=== PATIENT | female | born 1945 | race Caucasian/White ===

== ENCOUNTER 2017-02-28 09:06 | Emergency (ER) | payer MEDICARE, BC ==
[2017-02-28] MEDS ORDERED: Metoprolol Tartrate 50 MG Tab PO ONE ×2 (09:56→12:02)
[2017-02-28] MEDS ORDERED: Diltiazem 25 MG/5 ML SDV IVPUSH ONE (13:57)
[2017-02-28] MEDS ORDERED: Sodium Chloride 0.9% 10 ML Syringe FLUSH PRN (13:57)
[2017-02-28 15:21] VITALS: BP 124/78
--- NOTE | 2017-02-28 15:52 | EDM.PDOC ---
ED HPI GENERAL MEDICAL PROBLEM - General Chief Complaint: Cardiovascular Problem Stated Complaint: HEART RATE FAST Time Seen by Provider: 02/28/17 09:37 - History of Present Illness INITIAL COMMENTS - FREE TEXT/NARRATIVE: Comes to the emergency department because of a rapid heart rate. Her heart rate has been going up to nearly 150 with exertion. She gets dyspnea on exertion. Her resting heart rate is staying greater than 100. She takes metoprolol 50 mg 2 in the morning and 1 at night. Previously she was taking diltiazem but that was discontinued and her metoprolol dose was increased. 2 months ago she had a severe pneumonia and required surgery to the right lung. She's not having any respiratory difficulty except with exertion. She denies any chest pain - Related Data Allergies Allergy/AdvReac Type Severity Reaction Status Date / Time No Known Allergies Allergy Verified 03/31/16 05:15 Home Meds: Home Meds Clopidogrel [Plavix] 75 mg PO DAILY 01/15/16 [History] Metoprolol Succinate [Toprol XL] 50 mg PO TID 01/15/16 [History] Ramipril [Altace] 5 mg PO DAILY 01/15/16 [History] atorvaSTATin [Lipitor] 80 mg PO DAILY 01/15/16 [History] levETIRAcetam [Levetiracetam] 1,000 mg PO BID 01/15/16 [History] Past Medical History HEENT History: Reports: Impaired Vision Cardiovascular History: Reports: Afib, High Cholesterol Respiratory History: Reports: None Gastrointestinal History: Reports: None Genitourinary History: Reports: None Musculoskeletal History: Reports: Arthritis Neurological History: Reports: CVA, Seizure Psychiatric History: Reports: None Endocrine/Metabolic History: Reports: None Hematologic History: Reports: Anticoagulation Therapy Dermatologic History: Reports: None - Infectious Disease History Infectious Disease History: Reports: Chicken Pox, Shingles - Past Surgical History HEENT Surgical History: Reports: Eye Surgery, Other (See Below) Social & Family History - Family History Family Medical History: Unobtainable - Tobacco Use Smoking Status *Q: Never Smoker Second Hand Smoke Exposure: No - Recreational Drug Use Recreational Drug Use: No ED ROS GENERAL - Review of Systems Review Of Systems: ROS reveals no pertinent complaints other than HPI. ED EXAM, GENERAL - Physical Exam Exam: See Below Exam Limited By: No Limitations General Appearance: Alert, WD/WN Eye Exam: Bilateral Eye: Normal Inspection Throat/Mouth: Normal Oropharynx Neck: Normal Inspection Respiratory/Chest: Lungs Clear, Other Cardiovascular: Tachycardia, Irregularly Irregular GI/Abdominal: Soft, Non-Tender Back Exam: Normal Inspection Extremities: Pedal Edema (Trace of pedal edema bilaterally) Neurological: Alert, Oriented Skin Exam: Warm, Dry Course - Vital Signs Last Recorded V/S: Last Vital Signs Temp 36.3 C 02/28/17 09:57 Pulse 108 H 02/28/17 15:20 Resp 14 02/28/17 13:32 BP 124/78 02/28/17 15:20 Pulse Ox 90 L 02/28/17 15:15 - Orders/Labs/Meds Orders: Active Orders 24 hr Category Date Time Status EKG Documentation Completion [RC] ASDIRECTED Care 02/28/17 09:56 Active Chest 1V Frontal [CR] Urgent Exams 02/28/17 09:56 Taken Sodium Chloride 0.9% [Saline Flush] Med 02/28/17 13:57 Active 10 ml FLUSH ASDIRECTED PRN Saline Lock Insert [OM.PC] Urgent Oth 02/28/17 13:57 Ordered EKG 12 Lead [EK] Urgent Ther 02/28/17 09:56 Ordered Medication Orders Sodium Chloride (Saline Flush) 10 ml FLUSH ASDIRECTED PRN PRN Reason: Keep Vein Open Last Admin: 02/28/17 15:19 Dose: 10 ml Labs: Laboratory Tests 02/28/17 02/28/17 02/28/17 Range/Units 10:10 10:10 12:26 WBC 8.2 (4.5-11.0) K/uL RBC 4.78 (3.30-5.50) M/uL Hgb 11.3 L (12.0-15.0) g/dL Hct 37.4 (36.0-48.0) % MCV 78 L (80-98) fL MCH 24 L (27-31) pg MCHC 30 L (32-36) % Plt Count 226 (150-400) K/uL Neut % (Auto) 79 H (36-66) % Lymph % (Auto) 10 L (24-44) % Roberts % (Auto) 9 H (2-6) % Eos % (Auto) 1 L (2-4) % Baso % (Auto) 1 (0-1) % Sodium 142 (140-148) mmol/L Potassium 3.5 L (3.6-5.2) mmol/L Chloride 104 (100-108) mmol/L Carbon Dioxide 29 (21-32) mmol/L Anion Gap 12.5 (5.0-14.0) mmol/L BUN 26 H (7-18) mg/dL Creatinine 1.0 (0.6-1.0) mg/dL Est Cr Clr Drug Dosing 37.81 mL/min Estimated GFR (MDRD) 54 L (>60) Glucose 77 (74-106) mg/dL Calcium 9.0 (8.5-10.1) mg/dL Total Bilirubin 1.2 H D (0.2-1.0) mg/dL AST 69 H (15-37) U/L ALT 93 H (12-78) U/L Alkaline Phosphatase 127 H (46-116) U/L Troponin I 0.060 H* 0.054 (0.000-0.056) ng/mL Total Protein 6.9 (6.4-8.2) g/dL Albumin 3.2 L (3.4-5.0) g/dL Globulin 3.7 H (2.3-3.5) g/dL Albumin/Globulin Ratio 0.9 L (1.2-2.2) Meds: Medications Generic Name Dose Route Start Last Admin Trade Name Freq PRN Reason Stop Dose Admin Sodium Chloride 10 ml 02/28/17 13:57 02/28/17 15:19 Saline Flush FLUSH 10 ml ASDIRECTED PRN Administration Keep Vein Open Discontinued Medications Generic Name Dose Route Start Last Admin Trade Name Freq PRN Reason Stop Dose Admin Diltiazem HCl 20 mg 02/28/17 13:57 02/28/17 15:20 Diltiazem IVPUSH 02/28/17 13:58 20 mg ONETIME ONE Administration Metoprolol Tartrate 50 mg 02/28/17 09:56 02/28/17 10:08 Lopressor PO 02/28/17 09:57 50 mg ONETIME ONE Administration Metoprolol Tartrate 50 mg 02/28/17 12:02 02/28/17 12:07 Lopressor PO 02/28/17 12:03 50 mg ONETIME ONE Administration - Re-Assessments/Exams Free Text/Narrative Re-Assessment/Exam: 02/28/17 15:57 EKG shows atrial fibrillation with rapid ventricular response. Otherwise EKG is similar to previous tracings. No evidence of ischemia. The patient received metoprolol tartrate 50 mg which was repeated 1. This slowed her heart rate only slightly. I spoke with Dr. Mcfarlane about this lady and he felt that a trial of diltiazem IV was indicated. An IV was established and she was given diltiazem 20 mg. This brought the heart rate down to the 80- 90 range. She tolerated this well. Labs have been reviewed. Her troponin initially was slightly elevated at 0.06 and a 2 hour troponin was 0.054. There is no evidence of myocardial infarction in this lady Departure - Departure Time of Disposition: 15:49 Disposition: Home, Self-Care 01 Condition: Fair Clinical Impression: Atrial fibrillation with rapid ventricular response Referrals: Jayshree Cedillo MD [Primary Care Provider] - Forms: ED Department Discharge Additional Instructions: Continue taking the same dose of metoprolol. Add diltiazem 30 mg one or 2 tablets every 8 hours. Start with 1 tablet every 8 hours and if that does not keep your heart rate under about 100 then increase it to 2 tablets every 8 hours. If your heart rate is going under 60 then you should cut down on the diltiazem. Be sure to check your blood pressure and pulse several times a day and record these. Follow-up with your doctor on Thursday. Return to the ER at any time for any problems - My Orders Last 24 Hours: My Active Orders 02/28/17 09:56 EKG Documentation Completion [RC] ASDIRECTED Chest 1V Frontal [CR] Urgent EKG 12 Lead [EK] Urgent 02/28/17 13:57 Sodium Chloride 0.9% [Saline Flush] 10 ml FLUSH ASDIRECTED PRN Saline Lock Insert [OM.PC] Urgent - Assessment/Plan Last 24 Hours: My Active Orders 02/28/17 09:56 EKG Documentation Completion [RC] ASDIRECTED Chest 1V Frontal [CR] Urgent EKG 12 Lead [EK] Urgent 02/28/17 13:57 Sodium Chloride 0.9% [Saline Flush] 10 ml FLUSH ASDIRECTED PRN Saline Lock Insert [OM.PC] Urgent
--- NOTE | 2017-03-02 09:59 | CR ---
Chest 1V Frontal HISTORY: Pain COMPARISON: None FINDINGS: Small right-sided effusion. Right lung base atelectatic change or infiltrate. Small left-s ided effusion with adjacent atelectatic change or infiltrate. The pulmonary vessels are borderline c ongested. Mild cardiomegaly. Impression: Basilar infiltrates and effusions. Borderline congestive change.
== END 2017-02-28 16:28 | disposition home or self-care (01) ==
LOC: JP.ED 09:06
DX: I48.91 Unspecified atrial fibrillation (principal); H54.7 Unspecified visual loss; E78.00 Pure hypercholesterolemia, unspecified; Z79.899 Other long term (current) drug therapy; Z86.73 Personal history of transient ischemic attack (TIA), and cerebral infarction without residual deficits; M19.90 Unspecified osteoarthritis, unspecified site; Z87.01 Personal history of pneumonia (recurrent)
CPT/HCPCS: 36415; 71010; 80053; 84484; 85025; 93005; 96374; 99285; A9270; J7050; 93010; J3490

== ENCOUNTER 2017-05-06 19:55 | Emergency (ER) | payer MEDICARE, BC ==
[2017-05-06] MEDS ORDERED: Sodium Chloride 0.9% 10 ML Syringe FLUSH PRN (20:10)
--- NOTE | 2017-05-06 20:16 | EDM.PDOC ---
ED HPI GENERAL MEDICAL PROBLEM - General Chief Complaint: Neuro Symptoms/Deficits Stated Complaint: POSSIBLE STROKE Time Seen by Provider: 05/06/17 20:05 Source of Information: Reports: Patient, Family, Old Records History Limitations: Reports: Other (patient cannot speak) - History of Present Illness INITIAL COMMENTS - FREE TEXT/NARRATIVE: 71 yo female with a hx of multiple strokes felt due to Afib presents with onset about 191h tonight of inability to speak, some R facial droop and L arm weakness. 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 Is chronically in Afib, a PT of 2.3 was obtained earlier today. Onset witnessed by who brought her in via private vehicle. Has been to [facility] for CVA's in the past. Onset: Today Onset Date: 05/06/17 Onset Time: 19:15 Duration: Minutes:, Constant Location: Reports: Head, Face, Upper Extremity, Left Quality: Reports: Other (no pain, weakness) Severity: Moderate Improves with: Reports: None Worsens with: Reports: None Context: Reports: Other (afib, hx of CVA's, chronic Afib) Associated Symptoms: Reports: Weakness (L arm/hand), Other (R facial droop and L arm/hand weakness are new). Denies: Fever/Chills, Headaches Treatments [employer]: Reports: Other (see below) (none) - Related Data Allergies Allergy/AdvReac Type Severity Reaction Status Date / Time No Known Allergies Allergy Verified 03/31/16 05:15 Home Meds: Home Meds Metoprolol Succinate [Toprol XL] 50 mg PO BID 01/15/16 [History] Ramipril [Altace] 5 mg PO DAILY 01/15/16 [History] atorvaSTATin [Lipitor] 80 mg PO DAILY 01/15/16 [History] levETIRAcetam [Levetiracetam] 500 mg PO DAILY 01/15/16 [History] Diltiazem HCl [Diltiazem 24Hr Cd] 120 mg PO DAILY 05/06/17 [History] Diltiazem HCl [Diltiazem 24Hr ER] 120 mg PO DAILY 05/06/17 [History] Famotidine 20 mg PO DAILY 05/06/17 [History] Furosemide 20 mg PO DAILY 05/06/17 [History] Lisinopril 10 mg PO DAILY 05/06/17 [History] Warfarin [Coumadin] 2.5 mg PO DAILY 05/06/17 [History] levETIRAcetam [Levetiracetam] 1,000 mg PO QPM 05/06/17 [History] Past Medical History HEENT History: Reports: Impaired Vision Cardiovascular History: Reports: Afib, High Cholesterol Respiratory History: Reports: None Gastrointestinal History: Reports: None Genitourinary History: Reports: None Musculoskeletal History: Reports: Arthritis Neurological History: Reports: CVA, Seizure Psychiatric History: Reports: None Endocrine/Metabolic History: Reports: None Hematologic History: Reports: Anticoagulation Therapy Dermatologic History: Reports: None - Infectious Disease History Infectious Disease History: Reports: Chicken Pox, Shingles - Past Surgical History HEENT Surgical History: Reports: Eye Surgery, Other (See Below) Social & Family History - Family History Family Medical History: Unobtainable - Tobacco Use Smoking Status *Q: Never Smoker Second Hand Smoke Exposure: No - Caffeine Use Caffeine Use: Reports: None - Recreational Drug Use Recreational Drug Use: No ED ROS GENERAL - Review of Systems Review Of Systems: See Below Constitutional: Reports: No Symptoms HEENT: Reports: No Symptoms Respiratory: Reports: No Symptoms Cardiovascular: Reports: No Symptoms Endocrine: Reports: No Symptoms GI/Abdominal: Reports: No Symptoms : Reports: No Symptoms Musculoskeletal: Reports: No Symptoms Skin: Reports: No Symptoms Neurological: Reports: Trouble Speaking, Weakness (L hand/arm). Denies: Difficulty Walking Psychiatric: Reports: No Symptoms ED EXAM, NEURO - Physical Exam Exam: See Below Exam Limited By: No Limitations General Appearance: Alert, WD/WN, No Apparent Distress Eye Exam: Bilateral Eye: Normal Inspection, Other ([place] look to the Left, not new) Ears: Normal External Exam, Normal Canal, Normal TMs Nose: Normal Inspection, Normal Mucosa, No Blood Throat/Mouth: Normal Inspection, Normal Lips, Normal Oropharynx, No Airway Compromise Head Exam: Atraumatic, Normocephalic Neck: Normal Inspection, Supple Respiratory/Chest: No Respiratory Distress, Lungs Clear, Normal Breath Sounds, No Accessory Muscle Use Cardiovascular: Regular Rate, Rhythm, No Edema GI/Abdominal: Normal Bowel Sounds, Soft, Non-Tender, No Distention Neurological: Alert, Normal Mood/Affect, Other (L arm/hand strength 4/5, R facial droop, unable to speak clearly). No: No Motor/Sensory Deficits, Difficulty Walking Back Exam: Normal Inspection. No: CVA Tenderness (R), CVA Tenderness (L) Extremities: Normal Inspection, Non-Tender, No Pedal Edema Psychiatric: Normal Affect, Normal Mood Skin Exam: Warm, Dry, Intact, Normal Color, No Rash EKG INTERPRETATION EKG Date: 05/06/17 Time: 20:10 Rhythm: A-Fib Rate (Beats/Min): 93 [place]: Normal P-Wave: Present QRS: Normal ST-T: Normal QT: Normal Comparison: No Change Course - Vital Signs Text/Narrative:: To [facility] via ALS for acute stroke, not a candidate for thrombolytics due to chronic warfarin use with INR of 2.3 today. No beds available here at [facility]. Dr. Choi accepted @ 148. Requests air transport. Last Recorded V/S: Last Vital Signs Temp 35.8 C 05/06/17 20:00 Pulse 97 05/06/17 20:37 Resp 18 05/06/17 20:00 BP 136/88 05/06/17 20:37 Pulse Ox 94 L 05/06/17 20:37 - Orders/Labs/Meds Orders: Active Orders 24 hr Category Date Time Status Cardiac Monitoring [RC] .As Directed Care 05/06/17 20:10 Active EKG Documentation Completion [RC] ASDIRECTED Care 05/06/17 20:10 Active Head wo Cont [CT] Stat Exams 05/06/17 20:11 Taken UA W/MICROSCOPIC [URIN] Stat Lab 05/06/17 20:09 Uncollected Sodium Chloride 0.9% [Saline Flush] Med 05/06/17 20:10 Active 10 ml FLUSH ASDIRECTED PRN Saline Lock Insert [OM.PC] Routine Oth 05/06/17 20:10 Ordered EKG 12 Lead [EK] Routine Ther 05/06/17 20:10 Ordered Medication Orders Sodium Chloride (Saline Flush) 10 ml FLUSH ASDIRECTED PRN PRN Reason: Keep Vein Open Last Admin: 05/06/17 20:30 Dose: 10 ml Labs: Laboratory Tests 05/06/17 05/06/17 Range/Units 20:09 20:09 WBC 6.5 (4.5-11.0) K/uL RBC 5.51 H (3.30-5.50) M/uL Hgb 13.2 (12.0-15.0) g/dL Hct 41.5 (36.0-48.0) % MCV 75 L (80-98) fL MCH 24 L (27-31) pg MCHC 32 (32-36) % Plt Count 210 (150-400) K/uL Sodium 143 (140-148) mmol/L Potassium 4.1 (3.6-5.2) mmol/L Chloride 105 (100-108) mmol/L Carbon Dioxide 32 (21-32) mmol/L Anion Gap 5.7 (5.0-14.0) mmol/L BUN 24 H (7-18) mg/dL Creatinine 0.9 (0.6-1.0) mg/dL Est Cr Clr Drug Dosing 42.01 mL/min Estimated GFR (MDRD) > 60 (>60) Glucose 105 (74-106) mg/dL Calcium 8.9 (8.5-10.1) mg/dL Troponin I 0.074 H* (0.000-0.056) ng/mL Meds: Medications Generic Name Dose Route Start Last Admin Trade Name Freq PRN Reason Stop Dose Admin Sodium Chloride 10 ml 05/06/17 20:10 05/06/17 20:30 Saline Flush FLUSH 10 ml ASDIRECTED PRN Administration Keep Vein Open - Radiology Interpretation Free Text/Narrative:: No acute changes noted. CT Results Date: 05/06/17 CT Results Time: 21:25 Departure - Departure Time of Disposition: 21:35 Disposition: DC/Tfer to Acute Hospital 02 Condition: Serious Clinical Impression: Chronic atrial fibrillation CVA (cerebral vascular accident) Qualifiers: CVA mechanism: unspecified Qualified Code(s): I63.9 - Cerebral infarction, unspecified - Discharge Information Referrals: Jayshree Cedillo MD [Primary Care Provider] - Forms: ED Department Discharge - My Orders Last 24 Hours: My Active Orders 05/06/17 20:09 UA W/MICROSCOPIC [URIN] Stat 05/06/17 20:10 Cardiac Monitoring [RC] .As Directed EKG Documentation Completion [RC] ASDIRECTED Sodium Chloride 0.9% [Saline Flush] 10 ml FLUSH ASDIRECTED PRN Saline Lock Insert [OM.PC] Routine EKG 12 Lead [EK] Routine 05/06/17 20:11 Head wo Cont [CT] Stat - Assessment/Plan Last 24 Hours: My Active Orders 05/06/17 20:09 UA W/MICROSCOPIC [URIN] Stat 05/06/17 20:10 Cardiac Monitoring [RC] .As Directed EKG Documentation Completion [RC] ASDIRECTED Sodium Chloride 0.9% [Saline Flush] 10 ml FLUSH ASDIRECTED PRN Saline Lock Insert [OM.PC] Routine EKG 12 Lead [EK] Routine 05/06/17 20:11 Head wo Cont [CT] Stat
[2017-05-06 21:36] VITALS: BP 140/100
== END 2017-05-06 21:55 ==
LOC: JP.ED 19:55
DX: I63.9 Cerebral infarction, unspecified (principal); I48.2 Chronic atrial fibrillation; M19.90 Unspecified osteoarthritis, unspecified site; Z79.899 Other long term (current) drug therapy; Z79.01 Long term (current) use of anticoagulants
CPT/HCPCS: 36415; 70450; 80048; 81001; 84484; 85027; 93005; 99285; J7050; 93010

== ENCOUNTER 2021-01-15 15:50 | Inpatient (IN) | payer MEDICARE, BC ==
[2021-01-15] MEDS ORDERED: Ondansetron 4 MG Tab.DIS PO PRN (16:50)
[2021-01-15] MEDS ORDERED: Sodium Chloride 0.9% 10 ML Syringe FLUSH PRN (16:50)
[2021-01-15] MEDS ORDERED: Ondansetron 4 MG/2 ML SDV IV PRN (16:50)
--- NOTE | 2021-01-15 17:01 | PCM.HP.2 ---
H&P History of Present Illness - General Date of Service: 01/15/21 Admit Problem/Dx: Admission Diagnosis/Problem Admission Diagnosis/Problem CHF, Congestive heart failure Source of Information: Patient, Family, Provider History Limitations: Reports: No Limitations - History of Present Illness Initial Comments - Free Text/Narative: CC: I was so tired HPI: Jody presents as a direct admission from the clinic after seeing her primary care physician Dr. Vanda Garcia. She reports a weight gain of more than 20 pounds over the last few weeks. She has had increasing fatigue and dyspnea with any exertion. She has had increased swelling of her right arm as well as both legs all the way up to her waist and including her lower back. She has progressive orthopnea but does not have any PND. She has not had chest pain or chest tightness. No obvious trigger to have started the progression of the swelling. She was on an increased dose of furosemide for a few days but did not notice any change in urine output or weight or symptoms. She does have a loose cough but has not produced sputum. No fevers or chills. No abdominal pain or nausea. No change in bowel or bladder habits. No obvious sick contacts. She does note that she has had several medications discontinued recently because of hypotension. Her last echocardiogram was performed about 1 year ago and showed an ejection fraction of 40 to 45% with severe tricuspid regurgitation and severe pulmonary hypertension with pressures in the 80 to 90 mmHg range. - Related Data Allergies/Adverse Reactions: Allergies Allergy/AdvReac Type Severity Reaction Status Date / Time No Known Allergies Allergy Verified 03/31/16 05:15 Home Medications: Home Meds Metoprolol Succinate [Toprol XL] 50 mg PO BID 01/15/16 [History] levETIRAcetam [Levetiracetam] 500 mg PO DAILY 01/15/16 [History] Furosemide 20 mg PO DAILY 05/06/17 [History] Warfarin [Coumadin] 2.5 mg PO DAILY 05/06/17 [History] levETIRAcetam [Levetiracetam] 1,000 mg PO QPM 05/06/17 [History] Rosuvastatin [Crestor] 10 mg PO DAILY 01/15/21 [History] Past Medical History HEENT History: Reports: Impaired Vision Cardiovascular History: Reports: Afib, High Cholesterol Respiratory History: Reports: None Gastrointestinal History: Reports: None Genitourinary History: Reports: None Musculoskeletal History: Reports: Arthritis Neurological History: Reports: CVA, Seizure Psychiatric History: Reports: None Endocrine/Metabolic History: Reports: None Hematologic History: Reports: Anticoagulation Therapy Dermatologic History: Reports: None - Infectious Disease History Infectious Disease History: Reports: Chicken Pox, Shingles - Past Surgical History HEENT Surgical History: Reports: Eye Surgery, Other (See Below) Other HEENT Surgeries/Procedures: 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 Pertinent positives and negatives are noted in the history of present illness. All other systems were reviewed and were negative except as noted. Exam - Exam Exam: See Below - Vital Signs Vital Signs: Last Vital Signs Temp 35.2 C L 01/15/21 16:27 Pulse 90 01/15/21 16:27 Resp 16 01/15/21 16:33 BP 109/61 01/15/21 16:27 Pulse Ox 91 L 01/15/21 16:33 - Exam Quality Assessment: Supplemental Oxygen General: Alert, Oriented, Cooperative. No: Mild Distress HEENT: Conjunctiva Clear. No: Mucosa Moist & [place], Scleral Icterus Neck: Supple, JVD Lungs: Normal Respiratory Effort, Decreased Breath Sounds (both bases ), Crackles (both bases ) Cardiovascular: Regular Rate, Irregular Rhythm, Gallop/S3 GI/Abdominal Exam: Normal Bowel Sounds, Soft, Non-Tender, No Distention Extremities: Pedal Edema (massive pitting edema both legs to the waist and lower back ), Increased Warmth (both shins ) Peripheral Pulses: 1+: Dorsalis Pedis (L), Dorsalis Pedis (R) Skin: Warm, Dry, Wound (weeping from right anterior storm ) Neuro Extensive - Mental Status: Alert, Nl Response to Commands Neuro Extensive - Motor, Sensory, Reflexes: Dysarthria, Abnormal Motor (right arm weakness ). No: Tremor Psychiatric: Alert, Normal Affect - Patient Data Result Diagrams: 01/15/21 17:36 01/15/21 17:36 Imaging Impressions Last 24 hrs: Chest x-ray-image was personally reviewed-she has cardiomegaly with small bilateral effusions as well as some probable pulmonary edema more on the right than on the left. No obvious mass or infiltrate. Sepsis Event Note - Focused Exam Vital Signs: Vital Signs Temp Pulse Resp BP Pulse Ox 01/15/21 16:33 16 91 L 01/15/21 16:27 35.2 C L 90 18 109/61 85 L *Q Meaningful Use (ADM) - VTE Risk Assess *Q Each Risk Factor Represents 1 Point: Swollen Legs, Current, Obesity ( BMI > 25 kg/m2), Congestive heart failure (CHF) Total Score 1 Point Risk Factors: 3 Each Risk Factor Represents 2 Points: None Total Score 2 Point Risk Factors: 0 Each Risk Factor Represents 3 Points: Age 75 Years or Greater, History of DVT/PE Total Score 3 Point Risk Factors: 6 Each Risk Factor Represents 5 Points: None Total Score 5 Point Risk Factors: 0 Venous Thromboembolism Risk Factor Score *Q: 9 - Problem List (1) Acute decompensated heart failure SNOMED Code(s): 28151621, 168488052 ICD Code: I50.9 - HEART FAILURE, UNSPECIFIED Status: Acute Current Visit: Yes Problem Details: Combined systolic and diastolic with severe tricuspid regurgitation (2) Acute respiratory failure with hypoxia SNOMED Code(s): 06964576, 698434487 ICD Code: J96.01 - ACUTE RESPIRATORY FAILURE WITH HYPOXIA Status: Acute Current Visit: Yes (3) Stage 3 chronic kidney disease SNOMED Code(s): 918662198 ICD Code: N18.30 - CHRONIC KIDNEY DISEASE, STAGE 3 UNSPECIFIED Status: Chronic Current Visit: Yes Qualifiers: Chronic kidney disease stage 3 subtype: stage 3a (GFR 45-59) Qualified Code(s): N18.31 - Chronic kidney disease, stage 3a (4) 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 SNOMED Code(s): 59050773520179654 ICD Code: Z86.73 - PRSNL HX OF TIA (TIA), AND CEREB INFRC W/O RESID DEFICITS Status: Chronic Current Visit: Yes (5) Chronic atrial fibrillation SNOMED Code(s): 404211502 ICD Code: I48.2 - CHRONIC ATRIAL FIBRILLATION * DO NOT USE * Status: Acute Current Visit: No Problem List Initiated/Reviewed/Updated: Yes Orders Last 24hrs: Active Orders 24 hr Category Date Time Status Patient Status [ADT] Routine ADT 01/15/21 16:50 Ordered Cardiac Monitoring [RC] CONTINUOUS Care 01/15/21 16:51 Ordered Communication Order [RC] DAILY Care 01/15/21 16:53 Ordered Height and Weight [RC] DAILY Care 01/15/21 16:50 Ordered Insert Menjivar Catheter [Insert Urinary Catheter] [OM.PC] Care 01/15/21 17:00 Ordered Q24H Intake and Output [RC] QSHIFT Care 01/15/21 16:50 Ordered Notify Provider Vital Signs [RC] ASDIRECTED Care 01/15/21 16:50 Ordered Oxygen Therapy [RC] PRN Care 01/15/21 16:50 Ordered RT Aerosol Therapy [RC] ASDIRECTED Care 01/15/21 16:52 Ordered Up With Assistance [RC] ASDIRECTED Care 01/15/21 16:50 Ordered Urinary Catheter Assessment [RC] ASDIRECTED Care 01/15/21 16:54 Ordered VTE/DVT Education [RC] Per Unit Routine Care 01/15/21 16:50 Ordered Vital Signs [RC] Q4H Care 01/15/21 16:50 Ordered PT Evaluation and Treatment [CONS] Routine Cons 01/16/21 07:00 Ordered 2 Gram Sodium Diet [DIET] Diet 01/15/21 Dinner Ordered Chest 1V Frontal [CR] Urgent Exams 01/15/21 16:50 Ordered BASIC METABOLIC PANEL,BMP [CHEM] Timed Lab 01/16/21 05:00 Ordered CBC WITH AUTO DIFF [HEME] Routine Lab 01/15/21 16:50 Ordered COMPREHENSIVE METABOLIC PN,CMP [CHEM] Routine Lab 01/15/21 16:50 Ordered INR,PT,PROTHROMBIN TIME [COAG] Routine Lab 01/15/21 16:50 Ordered INR,PT,PROTHROMBIN TIME [COAG] Timed Lab 01/16/21 05:00 Ordered MAGNESIUM [CHEM] Routine Lab 01/15/21 16:50 Ordered TROPONIN I [CHEM] Routine Lab 01/15/21 16:50 Ordered UA W/MICROSCOPIC [URIN] Routine Lab 01/15/21 16:50 Ordered Acetaminophen [TylenoL] Med 01/15/21 16:50 Ordered 650 mg PO Q4H PRN Albuterol [Proventil Neb Soln] Med 01/15/21 16:50 Ordered 2.5 mg NEB Q4H PRN Docusate Sodium/Sennosides [Senna Plus] Med 01/15/21 16:50 Ordered 1 tab PO BID PRN Magnesium Hydroxide [Milk of Magnesia] Med 01/15/21 16:50 Ordered 30 ml PO Q12H PRN Melatonin Med 01/15/21 16:50 Ordered 9 mg PO BEDTIME PRN Metoprolol Succinate [Toprol XL] Med 01/15/21 21:00 Ordered 50 mg PO BID Ondansetron [Zofran ODT] Med 01/15/21 16:50 Ordered 4 mg PO Q6H PRN Ondansetron [Zofran] Med 01/15/21 16:50 Ordered 4 mg IV Q6H PRN Rosuvastatin [Crestor] Med 01/16/21 09:00 Ordered 10 mg PO DAILY Sodium Chloride 0.9% [Saline Flush] Med 01/15/21 16:50 Ordered 10 ml FLUSH ASDIRECTED PRN Warfarin [Coumadin] Med 01/15/21 17:00 Ordered 1.25 mg PO ASDIRECTED Warfarin [Coumadin] Med 01/15/21 17:00 Ordered 2.5 mg PO ASDIRECTED levETIRAcetam [Levetiracetam] Med 01/15/21 17:00 Ordered 1,000 mg PO QPM levETIRAcetam [Levetiracetam] Med 01/16/21 09:00 Ordered 500 mg PO DAILY Elastic Wrap [OM.PC] Routine Oth 01/15/21 16:53 Ordered Saline Lock Insert [OM.PC] Urgent Oth 01/15/21 16:50 Ordered Resuscitation Status Routine Resus Stat 01/15/21 16:50 Ordered Medication Orders Acetaminophen (Acetaminophen 325 Mg Tab) 650 mg PO Q4H PRN PRN Reason: Pain (Mild 1-3)/fever Albuterol (Albuterol 0.083% 2.5 Mg/3 Ml Neb Soln) 2.5 mg NEB Q4H PRN PRN Reason: Shortness Of Breath/wheezing Magnesium Hydroxide (Magnesium Hydroxide 400 Mg/5 Ml Susp 30 Ml Cup) 30 ml PO Q12H PRN PRN Reason: Constipation Melatonin (Melatonin 3 Mg Tab) 9 mg PO BEDTIME PRN PRN Reason: Sleep Ondansetron HCl (Ondansetron 4 Mg Tab.Dis) 4 mg PO Q6H PRN PRN Reason: Nausea able to take PO Ondansetron HCl (Ondansetron 4 Mg/2 Ml Sdv) 4 mg IV Q6H PRN PRN Reason: Nausea/Vomiting Senna/Docusate Sodium (Docusate Sodium/Sennosides 50-8.6 Mg Tab) 1 tab PO BID PRN PRN Reason: Constipation Sodium Chloride (Sodium Chloride 0.9% 10 Ml Syringe) 10 ml FLUSH ASDIRECTED PRN PRN Reason: Keep Vein Open Assessment/Plan Comment:: ASSESSMENT AND PLAN - Acute decompensated congestive heart failure-combined systolic and diastolic with acute respiratory failure with hypoxia. No obvious trigger for the decompensation. She has gained 25 pounds over the last few weeks. She has not improved despite medication trials as an outpatient. She is now requiring supplemental oxygen. Heart failure is more right-sided and may be difficult to manage with borderline hypotension. -Furosemide 40 mg IV x1 now -Insert Menjivar catheter -Strict intake and output monitoring -Cardiac monitoring -Continue metoprolol -Wrap lower legs -Supplement oxygen as needed Elevated troponin-mild elevation likely related to demand ischemia in the sett ing of heart failure and mild hypoxia. Chronic atrial fibrillation-good rate control at this time. Chronically anticoagulated with supratherapeutic INR. -5 mg of vitamin K this evening -INR in the morning -INR goal is 2.5-3.5 Stage III chronic kidney disease-baseline creatinine of 1-1.1 and now at 1.4. Hopefully will improve with diuresis. 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 -Continue medical management Maintenance issues - -DVT prophylaxis-warfarin -GI prophylaxis-PPI -[id number] -Menjivar catheter-placed for strict intake and output monitoring in a critical heart failure patient CODE STATUS -full code Admission justification -this patient will be admitted for inpatient services and is medically appropriate meeting medical necessity for inpatient admission as outlined in my documentation. I reasonably expect the patient will require inpatient services that span a period time over 2 midnights. I reasonably expect this patient to be discharged or transferred within 96 hours after admission to the Critical [facility]. Disposition -I anticipate discharge home after the hospital stay Primary care physician -Dr. Vanda Benitez M.D. - Mortality Measure Prognosis:: Good
[2021-01-15] MEDS ORDERED: Warfarin 2.5 MG Tab PO SCH (18:00)
[2021-01-15] MEDS: levETIRAcetam 250 MG Tab PO SCH (18:16)
[2021-01-15] MEDS ORDERED: Furosemide 40 MG/4 ML VIAL IVPUSH ONE (18:16)
[2021-01-15] MEDS ORDERED: Phytonadione 5 MG Tab PO ONE (18:17)
--- NOTE | 2021-01-15 18:44 | CRLCR ---
For Patients: As a result of the Century Cures Act, medical imaging exams and procedure reports are released immediately into your electronic medical record. You may view this report before your referring provider. If you have questions, please contact your health care provider. INDICATION: Hypoxia TECHNIQUE: Portable semiupright AP view of the chest COMPARISON: None FINDINGS: There is moderate enlargement of the cardiac silhouette. Blunting of the costophrenic angles suggests presence of small pleural effusions. There is prominence of the pulmonary vascular markings, compatible with edema. There is no evidence of pneumothorax. The visualized osseous structures are unremarkable. IMPRESSION: Moderately enlarged cardiac silhouette, suggesting cardiomegaly versus pericardial effusion. Mild pulmonary edema. Likely small bilateral pleural effusions. Correlate for CHF. Dictated by Valerie Flores MD @ 01/15/2021 6:43:[address] Valerie Flores @ Jan 15 2021 6:43PM
[2021-01-15] MEDS ORDERED: Digoxin 500 MCG/2 ML Amp IVPUSH ONE (19:31)
[2021-01-16] MEDS: Rosuvastatin 10 MG Tab PO SCH (09:01)
[2021-01-16] MEDS: levETIRAcetam 250 MG Tab PO SCH ×2 (09:02→16:42)
[2021-01-16] MEDS: Metoprolol Succinate 50 MG Tab.ER PO SCH ×2 (10:26→20:22)
--- NOTE | 2021-01-16 10:32 | PCM.PN ---
- General Info Date of Service: 01/16/21 Subjective Update: No acute events overnight. Poor response to diuretics last night. Blood pressure has been in the 70s and 80s during the latter part of the night and early part of the morning. Heart rate has been in the 100s. She reports that she feels okay. She does not report shortness of breath but does continue to require supplemental oxygen. Edema is a little better after her legs were wrapped overnight. No complaints of chest pain. Creatinine slightly higher t dora at 1.5. Functional Status: Reports: Pain Controlled, Tolerating Diet - Review of Systems General: Reports: Weakness Pulmonary: Reports: Shortness of Breath Cardiovascular: Reports: Edema - Patient Data Vitals - Most Recent: Last Vital Signs Temp 36.1 C 01/16/21 07:16 Pulse 99 01/16/21 10:26 Resp 16 01/16/21 07:16 BP 92/59 L 01/16/21 10:26 Pulse Ox 94 L 01/16/21 07:16 Weight - Most Recent: 62.686 kg I&O - Last 24 Hours: Intake & Output 01/15/21 01/16/21 01/16/21 22:59 06:59 14:59 Intake Total 240 240 300 Output Total 300 38% 30 Balance -60 -129 270 Lab Results Last 24 Hours: Laboratory Results - last 24 hr 01/15/21 01/15/21 01/15/21 Range/Units 17:36 17:36 17:36 WBC 6.3 (4.5-11.0) K/uL RBC 5.99 H (3.30-5.50) M/uL Hgb 16.4 H D (12.0-15.0) g/dL Hct 49.7 H (36.0-48.0) % MCV 83 (80-98) fL MCH 27 (27-31) pg MCHC 33 (32-36) % Plt Count 153 (150-400) K/uL Neut % (Auto) 72.3 H (36-66) % Lymph % (Auto) 12.1 L (24-44) % [place] % (Auto) 13.1 H (2-6) % Eos % (Auto) 0.9 L (2-4) % Baso % (Auto) 1.6 H (0-1) % PT 80.3 H (9.5-12.0) sec INR 7.67 H* D (0.80-1.20) Sodium 141 (140-148) mmol/L Potassium 4.3 (3.6-5.2) mmol/L Chloride 103 (100-108) mmol/L Carbon Dioxide 32 (21-32) mmol/L Anion Gap 6.0 (5.0-14.0) mmol/L BUN 38 H D (7-18) mg/dL Creatinine 1.4 H D (0.6-1.0) mg/dL Est Cr Clr Drug Dosing TNP Estimated GFR (MDRD) 36 L (>60) Glucose 77 (74-106) mg/dL Calcium 8.3 L (8.5-10.1) mg/dL Magnesium 2.3 (1.8-2.4) mg/dL Total Bilirubin 0.6 (0.2-1.0) mg/dL AST 41 H (15-37) U/L ALT 39 (12-78) U/L Alkaline Phosphatase 152 H (46-116) U/L Troponin I 0.067 H* (0.000-0.056) ng/mL Total Protein 4.8 L (6.4-8.2) g/dL Albumin 1.7 L (3.4-5.0) g/dL Globulin 3.1 (2.3-3.5) g/dL Albumin/Globulin Ratio 0.6 L (1.2-2.2) Urine Color (YELLOW) Urine Appearance (CLEAR) Urine pH (5.0-8.0) Ur Specific [place] (1.008-1.030) Urine Protein (NEGATIVE) mg/dL Urine Glucose (UA) (NEGATIVE) mg/dL Urine Ketones (NEGATIVE) mg/dL Urine Occult Blood (NEGATIVE) Urine Nitrite (NEGATIVE) Urine Bilirubin (NEGATIVE) Urine Urobilinogen (0.2-1.0) EU/dL Ur Leukocyte Esterase (NEGATIVE) Urine RBC (0-5) Urine WBC (0-5) Ur Epithelial Cells Amorphous Sediment Urine Bacteria Urine Mucus 01/16/21 01/16/21 01/16/21 Range/Units 01:01 04:00 04:00 WBC (4.5-11.0) K/uL RBC (3.30-5.50) M/uL Hgb (12.0-15.0) g/dL Hct (36.0-48.0) % MCV (80-98) fL MCH (27-31) pg MCHC (32-36) % Plt Count (150-400) K/uL Neut % (Auto) (36-66) % Lymph % (Auto) (24-44) % [place] % (Auto) (2-6) % Eos % (Auto) (2-4) % Baso % (Auto) (0-1) % PT 60.7 H (9.5-12.0) sec INR 5.76 H* (0.80-1.20) Sodium 140 (140-148) mmol/L Potassium 4.3 (3.6-5.2) mmol/L Chloride 102 (100-108) mmol/L Carbon Dioxide 29 (21-32) mmol/L Anion Gap 8.9 (5.0-14.0) mmol/L BUN 40 H (7-18) mg/dL Creatinine 1.5 H (0.6-1.0) mg/dL Est Cr Clr Drug Dosing TNP Estimated GFR (MDRD) 34 L (>60) Glucose 81 (74-106) mg/dL Calcium 8.5 (8.5-10.1) mg/dL Magnesium (1.8-2.4) mg/dL Total Bilirubin (0.2-1.0) mg/dL AST (15-37) U/L ALT (12-78) U/L Alkaline Phosphatase (46-116) U/L Troponin I (0.000-0.056) ng/mL Total Protein (6.4-8.2) g/dL Albumin (3.4-5.0) g/dL Globulin (2.3-3.5) g/dL Albumin/Globulin Ratio (1.2-2.2) Urine Color Yellow (YELLOW) Urine Appearance Clear (CLEAR) Urine pH 5.5 (5.0-8.0) Ur Specific [place] 1.020 (1.008-1.030) Urine Protein Negative (NEGATIVE) mg/dL Urine Glucose (UA) Negative (NEGATIVE) mg/dL Urine Ketones Negative (NEGATIVE) mg/dL Urine Occult Blood Moderate H (NEGATIVE) Urine Nitrite Negative (NEGATIVE) Urine Bilirubin Negative (NEGATIVE) Urine Urobilinogen 0.2 (0.2-1.0) EU/dL Ur Leukocyte Esterase Negative (NEGATIVE) Urine RBC 10-20 H (0-5) Urine WBC 0-5 (0-5) Ur Epithelial Cells Not seen Amorphous Sediment Not seen Urine Bacteria Few Urine Mucus Not seen Med Orders - Current: Current Medications Acetaminophen (Acetaminophen 325 Mg Tab) 650 mg PO Q4H PRN PRN Reason: Pain (Mild 1-3)/fever Albuterol (Albuterol 0.083% 2.5 Mg/3 Ml Neb Soln) 2.5 mg NEB Q4H PRN PRN Reason: Shortness Of Breath/wheezing Levetiracetam (Levetiracetam 250 Mg Tab) 1,000 mg PO QPM [facility] Last Admin: 01/15/21 18:16 Dose: 1,000 mg Documented by: Levetiracetam (Levetiracetam 250 Mg Tab) 500 mg PO DAILY [facility] Last Admin: 01/16/21 09:02 Dose: 500 mg Documented by: Magnesium Hydroxide (Magnesium Hydroxide 400 Mg/5 Ml Susp 30 Ml Cup) 30 ml PO Q12H PRN PRN Reason: Constipation Melatonin (Melatonin 3 Mg Tab) 9 mg PO BEDTIME PRN PRN Reason: Sleep Metoprolol Succinate (Metoprolol Succinate 50 Mg Tab.Er) 50 mg PO BID [facility] Last Admin: 01/16/21 10:26 Dose: 50 mg Documented by: Ondansetron HCl (Ondansetron 4 Mg Tab.Dis) 4 mg PO Q6H PRN PRN Reason: Nausea able to take PO Ondansetron HCl (Ondansetron 4 Mg/2 Ml Sdv) 4 mg IV Q6H PRN PRN Reason: Nausea/Vomiting Rosuvastatin Calcium (Rosuvastatin 10 Mg Tab) 10 mg PO DAILY [facility] Last Admin: 01/16/21 09:01 Dose: 10 mg Documented by: Senna/Docusate Sodium (Docusate Sodium/Sennosides 50-8.6 Mg Tab) 1 tab PO BID P RN PRN Reason: Constipation Sodium Chloride (Sodium Chloride 0.9% 10 Ml Syringe) 10 ml FLUSH ASDIRECTED PRN PRN Reason: Keep Vein Open Discontinued Medications Digoxin (Digoxin 500 Mcg/2 Ml Amp) 125 mcg IVPUSH ONETIME ONE Stop: 01/15/21 19:32 Last Admin: 01/15/21 19:49 Dose: 125 mcg Documented by: Furosemide (Furosemide 40 Mg/4 Ml Vial) 40 mg IVPUSH ONETIME ONE Stop: 01/15/21 18:17 Last Admin: 01/15/21 19:42 Dose: 40 mg Documented by: Phytonadione (Phytonadione 5 Mg Tab) 5 mg PO ONETIME ONE Stop: 01/15/21 18:18 Last Admin: 01/15/21 19:48 Dose: 5 mg Documented by: Warfarin Sodium (Warfarin 2.5 Mg Tab) 2.5 mg PO MoWeFr@1300 DIA Warfarin Sodium (Warfarin 2.5 Mg Tab) 1.25 mg PO SuTuThSa@1300 DIA Last Admin: 01/15/21 18:10 Dose: 1.25 mg Documented by: - Exam Quality Assessment: Supplemental Oxygen Urinary Catheter Total Time: 0Days 0Hours General: Alert, Oriented, Cooperative, No Acute Distress Lungs: Normal Respiratory Effort. No: Crackles, Wheezing Cardiovascular: Irregular Rhythm, Tachycardia, Murmurs GI/Abdominal Exam: Soft, No Distention Extremities: Pedal Edema (pitting edema of lower legs is mild, moderate of thighs yessi posteriorly including buttocks and lower back ) Skin: Warm, Dry Psy/Mental Status: Alert, Normal Affect - Patient Data Lab Results Last 24 hrs: Laboratory Results - last 24 hr 01/15/21 01/15/21 01/15/21 Range/Units 17:36 17:36 17:36 WBC 6.3 (4.5-11.0) K/uL RBC 5.99 H (3.30-5.50) M/uL Hgb 16.4 H D (12.0-15.0) g/dL Hct 49.7 H (36.0-48.0) % MCV 83 (80-98) fL MCH 27 (27-31) pg MCHC 33 (32-36) % Plt Count 153 (150-400) K/uL Neut % (Auto) 72.3 H (36-66) % Lymph % (Auto) 12.1 L (24-44) % [place] % (Auto) 13.1 H (2-6) % Eos % (Auto) 0.9 L (2-4) % Baso % (Auto) 1.6 H (0-1) % PT 80.3 H (9.5-12.0) sec INR 7.67 H* D (0.80-1.20) Sodium 141 (140-148) mmol/L Potassium 4.3 (3.6-5.2) mmol/L Chloride 103 (100-108) mmol/L Carbon Dioxide 32 (21-32) mmol/L Anion Gap 6.0 (5.0-14.0) mmol/L BUN 38 H D (7-18) mg/dL Creatinine 1.4 H D (0.6-1.0) mg/dL Est Cr Clr Drug Dosing TNP Estimated GFR (MDRD) 36 L (>60) Glucose 77 (74-106) mg/dL Calcium 8.3 L (8.5-10.1) mg/dL Magnesium 2.3 (1.8-2.4) mg/dL Total Bilirubin 0.6 (0.2-1.0) mg/dL AST 41 H (15-37) U/L ALT 39 (12-78) U/L Alkaline Phosphatase 152 H (46-116) U/L Troponin I 0.067 H* (0.000-0.056) ng/mL Total Protein 4.8 L (6.4-8.2) g/dL Albumin 1.7 L (3.4-5.0) g/dL Globulin 3.1 (2.3-3.5) g/dL Albumin/Globulin Ratio 0.6 L (1.2-2.2) Urine Color (YELLOW) Urine Appearance (CLEAR) Urine pH (5.0-8.0) Ur Specific [place] (1.008-1.030) Urine Protein (NEGATIVE) mg/dL Urine Glucose (UA) (NEGATIVE) mg/dL Urine Ketones (NEGATIVE) mg/dL Urine Occult Blood (NEGATIVE) Urine Nitrite (NEGATIVE) Urine Bilirubin (NEGATIVE) Urine Urobilinogen (0.2-1.0) EU/dL Ur Leukocyte Esterase (NEGATIVE) Urine RBC (0-5) Urine WBC (0-5) Ur Epithelial Cells Amorphous Sediment Urine Bacteria Urine Mucus 01/16/21 01/16/21 01/16/21 Range/Units 01:01 04:00 04:00 WBC (4.5-11.0) K/uL RBC (3.30-5.50) M/uL Hgb (12.0-15.0) g/dL Hct (36.0-48.0) % MCV (80-98) fL MCH (27-31) pg MCHC (32-36) % Plt Count (150-400) K/uL Neut % (Auto) (36-66) % Lymph % (Auto) (24-44) % [place] % (Auto) (2-6) % Eos % (Auto) (2-4) % Baso % (Auto) (0-1) % PT 60.7 H (9.5-12.0) sec INR 5.76 H* (0.80-1.20) Sodium 140 (140-148) mmol/L Potassium 4.3 (3.6-5.2) mmol/L Chloride 102 (100-108) mmol/L Carbon Dioxide 29 (21-32) mmol/L Anion Gap 8.9 (5.0-14.0) mmol/L BUN 40 H (7-18) mg/dL Creatinine 1.5 H (0.6-1.0) mg/dL Est Cr Clr Drug Dosing TNP Estimated GFR (MDRD) 34 L (>60) Glucose 81 (74-106) mg/dL Calcium 8.5 (8.5-10.1) mg/dL Magnesium (1.8-2.4) mg/dL Total Bilirubin (0.2-1.0) mg/dL AST (15-37) U/L ALT (12-78) U/L Alkaline Phosphatase (46-116) U/L Troponin I (0.000-0.056) ng/mL Total Protein (6.4-8.2) g/dL Albumin (3.4-5.0) g/dL Globulin (2.3-3.5) g/dL Albumin/Globulin Ratio (1.2-2.2) Urine Color Yellow (YELLOW) Urine Appearance Clear (CLEAR) Urine pH 5.5 (5.0-8.0) Ur Specific [place] 1.020 (1.008-1.030) Urine Protein Negative (NEGATIVE) mg/dL Urine Glucose (UA) Negative (NEGATIVE) mg/dL Urine Ketones Negative (NEGATIVE) mg/dL Urine Occult Blood Moderate H (NEGATIVE) Urine Nitrite Negative (NEGATIVE) Urine Bilirubin Negative (NEGATIVE) Urine Urobilinogen 0.2 (0.2-1.0) EU/dL Ur Leukocyte Esterase Negative (NEGATIVE) Urine RBC 10-20 H (0-5) Urine WBC 0-5 (0-5) Ur Epithelial Cells Not seen Amorphous Sediment Not seen Urine Bacteria Few Urine Mucus Not seen Result Diagrams: 01/15/21 17:36 01/16/21 04:00 Sepsis Event Note - Evaluation Sepsis Screening Result: Severe Sepsis Risk - Focused Exam Vital Signs: Vital Signs Temp Pulse Pulse Resp BP BP Pulse Ox 01/16/21 10:26 99 92/59 L 01/16/21 08:41 105/49 L 01/16/21 07:16 36.1 C 65 16 79/52 L 94 L 01/16/21 02:29 35.5 C L 100 16 94/43 L 95 01/16/21 01:04 93/60 01/15/21 23:15 35.1 C L 112 H 16 88/49 L 95 - Problem List & Annotations (1) Acute decompensated heart failure SNOMED Code(s): 53114946, 216916767 Code(s): I50.9 - HEART FAILURE, UNSPECIFIED Status: Acute Current Visit: Yes Annotation/Comment:: Combined systolic and diastolic with severe tricuspid regurgitation (2) Acute respiratory failure with hypoxia SNOMED Code(s): 70202956, 470093594 Code(s): J96.01 - ACUTE RESPIRATORY FAILURE WITH HYPOXIA Status: Acute Current Visit: Yes (3) Stage 3 chronic kidney disease SNOMED Code(s): 390872298 Code(s): N18.30 - CHRONIC KIDNEY DISEASE, STAGE 3 UNSPECIFIED Status: Chronic Current Visit: Yes Qualifiers: Chronic kidney disease stage 3 subtype: stage 3a (GFR 45-59) Qualified Code(s): N18.31 - Chronic kidney disease, stage 3a (4) 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 SNOMED Code(s): 51098386390327665 Code(s): Z86.73 - PRSNL HX OF TIA (TIA), AND CEREB INFRC W/O RESID DEFICITS Status: Chronic Current Visit: Yes (5) Chronic atrial fibrillation SNOMED Code(s): 884204505 Code(s): I48.2 - CHRONIC ATRIAL FIBRILLATION * DO NOT USE * Status: Chronic Current Visit: No - Problem List Review Problem List Initiated/Reviewed/Updated: Yes - My Orders Last 24 Hours: My Active Orders 01/15/21 16:50 Patient Status [ADT] Routine Height and Weight [RC] 0500 Intake and Output [RC] QSHIFT Notify Provider Vital Signs [RC] ASDIRECTED Oxygen Therapy [RC] PRN Up With Assistance [RC] ASDIRECTED Vital Signs [RC] Q1H Acetaminophen [TylenoL] 650 mg PO Q4H PRN Albuterol [Proventil Neb Soln] 2.5 mg NEB Q4H PRN Docusate Sodium/Sennosides [Senna Plus] 1 tab PO BID PRN Magnesium Hydroxide [Milk of Magnesia] 30 ml PO Q12H PRN Melatonin 9 mg PO BEDTIME PRN Ondansetron [Zofran ODT] 4 mg PO Q6H PRN Ondansetron [Zofran] 4 mg IV Q6H PRN Sodium Chloride 0.9% [Saline Flush] 10 ml FLUSH ASDIRECTED PRN Saline Lock Insert [OM.PC] Urgent Resuscitation Status Routine 01/15/21 16:51 Cardiac Monitoring [RC] CONTINUOUS 01/15/21 16:52 RT Aerosol Therapy [RC] ASDIRECTED 01/15/21 16:53 Communication Order [RC] DAILY Elastic Wrap [OM.PC] Routine 01/15/21 16:54 Urinary Catheter Assessment [RC] ASDIRECTED 01/15/21 Dinner 2 Gram Sodium Diet [DIET] 01/15/21 19:00 levETIRAcetam [Keppra] 1,000 mg PO QPM 01/15/21 21:00 Metoprolol Succinate [Toprol XL] 50 mg PO BID 01/16/21 09:00 Rosuvastatin [Crestor] 10 mg PO DAILY levETIRAcetam [Keppra] 500 mg PO DAILY 01/16/21 10:28 Transfer Patient (Change bed) [ADT] Routine 01/16/21 10:29 Digoxin [Lanoxin] 125 mcg IVPUSH ONETIME ONE 01/16/21 10:30 Phenylephrine 40 MG in D5W @ 40 MCG/MIN(250ml) Phenylephrine [Maycol-Synephrine] 40 mg Dextrose 5% in Water 250 ml IV TITRATE 01/16/21 17:00 Insert Menjivar Catheter [Insert Urinary Catheter] [OM.PC] Q24H 01/17/21 05:00 BASIC METABOLIC PANEL,BMP [CHEM] Timed CBC W/O DIFF,HEMOGRAM [HEME] Timed (1) INR,PT,PROTHROMBIN TIME [COAG] Timed - Plan Plan:: ASSESSMENT AND PLAN - Acute decompensated congestive heart failure-combined systolic and diastolic with acute respiratory failure with hypoxia. Did not respond well to diuretics and blood pressure is too low for additional diuresis or even rate control of the atrial fibrillation. -Transferred to the intensive care unit -Start phenylephrine to provide enough blood pressure for diuresis -Consider norepinephrine to phenylephrine not effective enough -Echo in the morning -Insert Menjivar catheter -Strict intake and output monitoring -Cardiac monitoring -Continue metoprolol -Wrap lower legs -Supplement oxygen as needed Elevated troponin-mild elevation likely related to demand ischemia in the setting of heart failure and mild hypoxia. Chronic atrial fibrillation-rate controlled better this morning. INR was supratherapeutic and is a little better after vitamin K. -Continue metoprolol for rate control -Dose of digoxin for additional rate control -Hold warfarin today -INR in the morning -INR goal is 2.5-3.5 Stage III chronic kidney disease-baseline creatinine of 1-1.1 and now at 1.5. Hopefully will improve with improved blood pressure. 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 -Continue medical management Maintenance issues - -DVT prophylaxis-warfarin -GI prophylaxis-PPI -[id number] -Menjivar catheter-placed for strict intake and output monitoring in a critical heart failure patient Disposition -I anticipate discharge home with home care after the hospital stay Primary care physician -Dr. Vanda Benitez M.D.
[2021-01-16] MEDS ORDERED: Digoxin 500 MCG/2 ML Amp IVPUSH ONE (11:00)
[2021-01-16] MEDS ORDERED: Warfarin 2.5 MG Tab PO SCH (13:00)
[2021-01-16] MEDS ORDERED: Furosemide 40 MG/4 ML VIAL IVPUSH ONE (15:45)
[2021-01-16] MEDS: Memantine 10 MG Tab PO SCH (20:22)
[2021-01-16] MEDS ORDERED: MEMANTINE 5 MG PO SCH (21:00)
[2021-01-16] MEDS ORDERED: Bumetanide 1 MG/4 ML MDV IVPUSH ONE (22:00)
[2021-01-17] MEDS: Acetaminophen 325 MG Tab PO PRN (04:17)
[2021-01-17] MEDS: Rosuvastatin 10 MG Tab PO SCH (08:50)
[2021-01-17] MEDS: levETIRAcetam 250 MG Tab PO SCH ×2 (08:50→17:42)
[2021-01-17] MEDS: Memantine 10 MG Tab PO SCH ×2 (08:51→20:05)
[2021-01-17] MEDS: Potassium Chloride 20 MEQ Tab.ER PO SCH ×2 (08:51→20:05)
[2021-01-17] MEDS: Metoprolol Succinate 50 MG Tab.ER PO SCH ×2 (08:52→20:05)
[2021-01-17] MEDS: Bumetanide 2.5 MG/10 ML MDV IVPUSH SCH ×2 (08:59→21:41)
--- NOTE | 2021-01-17 10:06 | PCM.PN ---
- General Info Date of Service: 01/17/21 Subjective Update: No acute events overnight. She did not have a very good response to furosemide but did better after dose of bumetanide last night. We were about net neutral yesterday but edema does appear little better. Blood pressure has improved with the phenylephrine infusion. Kidney function is stable. She reports mild shortness of breath but overall feels okay. Tolerating leg wraps to help with her lower extremity edema. Functional Status: Reports: Pain Controlled, Tolerating Diet - Review of Systems General: Reports: Weakness Cardiovascular: Reports: Edema - Patient Data Vitals - Most Recent: Last Vital Signs Temp 36.7 C 01/17/21 07:00 Pulse 78 01/17/21 08:52 Resp 15 01/17/21 08:00 BP 111/70 01/17/21 08:52 Pulse Ox 91 L 01/17/21 08:00 Weight - Most Recent: 61.825 kg I&O - Last 24 Hours: Intake & Output 01/16/21 01/17/21 01/17/21 22:59 06:59 14:59 Intake Total 365 681 Output Total 350 1150 Balance 15 -469 Lab Results Last 24 Hours: Laboratory Results - last 24 hr 01/17/21 01/17/21 Range/Units 05:00 05:30 WBC 6.6 (4.5-11.0) K/uL RBC 5.94 H (3.30-5.50) M/uL Hgb 16.0 H (12.0-15.0) g/dL Hct 50.0 H (36.0-48.0) % MCV 84 (80-98) fL MCH 27 (27-31) pg MCHC 32 (32-36) % Plt Count 163 (150-400) K/uL Sodium 141 (140-148) mmol/L Potassium 3.4 L (3.6-5.2) mmol/L Chloride 104 (100-108) mmol/L Carbon Dioxide 31 (21-32) mmol/L Anion Gap 9.4 (5.0-14.0) mmol/L BUN 33 H (7-18) mg/dL Creatinine 1.4 H (0.6-1.0) mg/dL Est Cr Clr Drug Dosing 25.42 mL/min Estimated GFR (MDRD) 36 L (>60) Glucose 95 (74-106) mg/dL Calcium 8.3 L (8.5-10.1) mg/dL Med Orders - Current: Current Medications Acetaminophen (Acetaminophen 325 Mg Tab) 650 mg PO Q4H PRN PRN Reason: Pain (Mild 1-3)/fever Last Admin: 01/17/21 04:17 Dose: 650 mg Documented by: Albuterol (Albuterol 0.083% 2.5 Mg/3 Ml Neb Soln) 2.5 mg NEB Q4H PRN PRN Reason: Shortness Of Breath/wheezing Bumetanide (Bumetanide 2.5 Mg/10 Ml Mdv) 2 mg IVPUSH Q12H [facility] Last Admin: 01/17/21 08:59 Dose: 2 mg Documented by: Phenylephrine HCl 40 mg/ (Dextrose/Water) 254 mls @ 15.24 mls/hr IV TITRATE [facility]; Protocol Last Admin: 01/17/21 05:07 Dose: 75 mcg/min, 28.575 mls/hr Documented by: Levetiracetam (Levetiracetam 250 Mg Tab) 1,000 mg PO QPM [facility] Last Admin: 01/16/21 16:42 Dose: 1,000 mg Documented by: Levetiracetam (Levetiracetam 250 Mg Tab) 500 mg PO DAILY [facility] Last Admin: 01/17/21 08:50 Dose: 500 mg Documented by: Magnesium Hydroxide (Magnesium Hydroxide 400 Mg/5 Ml Susp 30 Ml Cup) 30 ml PO Q12H PRN PRN Reason: Constipation Melatonin (Melatonin 3 Mg Tab) 9 mg PO BEDTIME PRN PRN Reason: Sleep Memantine (Memantine 10 Mg Tab) 5 mg PO BID [facility] Last Admin: 01/17/21 08:51 Dose: 5 mg Documented by: Metoprolol Succinate (Metoprolol Succinate 50 Mg Tab.Er) 50 mg PO BID [facility] Last Admin: 01/17/21 08:52 Dose: 50 mg Documented by: Ondansetron HCl (Ondansetron 4 Mg Tab.Dis) 4 mg PO Q6H PRN PRN Reason: Nausea able to take PO Ondansetron HCl (Ondansetron 4 Mg/2 Ml Sdv) 4 mg IV Q6H PRN PRN Reason: Nausea/Vomiting Potassium Chloride (Potassium Chloride 20 Meq Tab.Er) 40 meq PO BID [facility] Last Admin: 01/17/21 08:51 Dose: 40 meq Documented by: Rosuvastatin Calcium (Rosuvastatin 10 Mg Tab) 10 mg PO DAILY [facility] Last Admin: 01/17/21 08:50 Dose: 10 mg Documented by: Senna/Docusate Sodium (Docusate Sodium/Sennosides 50-8.6 Mg Tab) 1 tab PO BID PRN PRN Reason: Constipation Sodium Chloride (Sodium Chloride 0.9% 10 Ml Syringe) 10 ml FLUSH ASDIRECTED PRN PRN Reason: Keep Vein Open Discontinued Medications Bumetanide (Bumetanide 1 Mg/4 Ml Mdv) 2 mg IVPUSH ONETIME ONE Stop: 01/16/21 22:01 Last Admin: 01/16/21 22:20 Dose: 2 mg Documented by: Digoxin (Digoxin 500 Mcg/2 Ml Amp) 125 mcg IVPUSH ONETIME ONE Stop: 01/15/21 19:32 Last Admin: 01/15/21 19:49 Dose: 125 mcg Documented by: Digoxin (Digoxin 500 Mcg/2 Ml Amp) 125 mcg IVPUSH ONETIME ONE Stop: 01/16/21 11:01 Last Admin: 01/16/21 11:38 Dose: 125 mcg Documented by: Furosemide (Furosemide 40 Mg/4 Ml Vial) 40 mg IVPUSH ONETIME ONE Stop: 01/15/21 18:17 Last Admin: 01/15/21 19:42 Dose: 40 mg Documented by: Furosemide (Furosemide 40 Mg/4 Ml Vial) 40 mg IVPUSH ONETIME ONE Stop: 01/16/21 15:46 Last Admin: 01/16/21 16:37 Dose: 40 mg Documented by: Phytonadione (Phytonadione 5 Mg Tab) 5 mg PO ONETIME ONE Stop: 01/15/21 18:18 Last Admin: 01/15/21 19:48 Dose: 5 mg Documented by: Warfarin Sodium (Warfarin 2.5 Mg Tab) 2.5 mg PO MoWeFr@1300 DIA Warfarin Sodium (Warfarin 2.5 Mg Tab) 1.25 mg PO SuTuThSa@1300 DIA Last Admin: 01/15/21 18:10 Dose: 1.25 mg Documented by: - Exam Quality Assessment: Supplemental Oxygen Urinary Catheter Total Time: 0Days 0Hours General: Alert, Oriented, Cooperative, No Acute Distress Lungs: Normal Respiratory Effort, Crackles (few both bases R>L) Cardiovascular: Regular Rate, Irregular Rhythm GI/Abdominal Exam: Soft, No Distention Extremities: Pedal Edema (massive pitting edema to the waist ). No: Increased Warmth Skin: Warm, Dry Psy/Mental Status: Alert, Normal Affect - Patient Data Lab Results Last 24 hrs: Laboratory Results - last 24 hr 01/17/21 01/17/21 Range/Units 05:00 05:30 WBC 6.6 (4.5-11.0) K/uL RBC 5.94 H (3.30-5.50) M/uL Hgb 16.0 H (12.0-15.0) g/dL Hct 50.0 H (36.0-48.0) % MCV 84 (80-98) fL MCH 27 (27-31) pg MCHC 32 (32-36) % Plt Count 163 (150-400) K/uL Sodium 141 (140-148) mmol/L Potassium 3.4 L (3.6-5.2) mmol/L Chloride 104 (100-108) mmol/L Carbon Dioxide 31 (21-32) mmol/L Anion Gap 9.4 (5.0-14.0) mmol/L BUN 33 H (7-18) mg/dL Creatinine 1.4 H (0.6-1.0) mg/dL Est Cr Clr Drug Dosing 25.42 mL/min Estimated GFR (MDRD) 36 L (>60) Glucose 95 (74-106) mg/dL Calcium 8.3 L (8.5-10.1) mg/dL Result Diagrams: 01/17/21 05:30 01/17/21 05:00 Sepsis Event Note - Evaluation Sepsis Screening Result: No Definite Risk - Focused Exam Vital Signs: Vital Signs Temp Pulse Pulse Resp BP BP Pulse Ox 01/17/21 08:52 78 111/70 01/17/21 08:00 71 15 111/70 91 L 01/17/21 07:00 36.7 C 68 17 108/71 90 L 01/17/21 06:00 19 108/62 96 01/17/21 05:00 36.0 C L 16 102/50 L 95 01/17/21 04:00 16 105/53 L 95 01/17/21 03:00 14 110/56 L 95 01/17/21 02:00 21 H 91/66 95 01/17/21 01:21 14 109/51 L 97 01/17/21 01:08 36.5 C 01/17/21 01:00 15 121/54 L 97 01/17/21 00:00 20 113/60 95 01/16/21 23:00 9 L 118/50 L 95 - Problem List & Annotations (1) Acute decompensated heart failure SNOMED Code(s): 38264266, 017110881 Code(s): I50.9 - HEART FAILURE, UNSPECIFIED Status: Acute Current Visit: Yes Annotation/Comment:: Combined systolic and diastolic with severe tricuspid regurgitation (2) Acute respiratory failure with hypoxia SNOMED Code(s): 73398362, 621661925 Code(s): J96.01 - ACUTE RESPIRATORY FAILURE WITH HYPOXIA Status: Acute Current Visit: Yes (3) Stage 3 chronic kidney disease SNOMED Code(s): 477052523 Code(s): N18.30 - CHRONIC KIDNEY DISEASE, STAGE 3 UNSPECIFIED Status: Chronic Current Visit: Yes Qualifiers: Chronic kidney disease stage 3 subtype: stage 3a (GFR 45-59) Qualified Code(s): N18.31 - Chronic kidney disease, stage 3a (4) 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 SNOMED Code(s): 67523753518685242 Code(s): Z86.73 - PRSNL HX OF TIA (TIA), AND CEREB INFRC W/O RESID DEFICITS Status: Chronic Current Visit: Yes (5) Chronic atrial fibrillation SNOMED Code(s): 818208285 Code(s): I48.2 - CHRONIC ATRIAL FIBRILLATION * DO NOT USE * Status: Chronic Current Visit: No - Problem List Review Problem List Initiated/Reviewed/Updated: Yes - My Orders Last 24 Hours: My Active Orders 01/16/21 10:28 Transfer Patient (Change bed) [ADT] Routine 01/16/21 10:30 Phenylephrine [Maycol-Synephrine] 40 mg Dextrose 5% in Water 250 ml IV TITRATE 01/16/21 21:00 Memantine [Namenda] 5 mg PO BID 01/17/21 05:00 INR,PT,PROTHROMBIN TIME [COAG] Routine 01/17/21 07:00 Echo Comp wo Cont [US] Routine 01/17/21 09:00 Potassium Chloride [Klor-Con M20] 40 meq PO BID 01/17/21 10:00 Bumetanide [Bumex] 2 mg IVPUSH Q12H Spironolactone [Aldactone] 25 mg PO DAILY 01/17/21 17:00 Insert Menjivar Catheter [Insert Urinary Catheter] [OM.PC] Q24H 01/18/21 05:00 BASIC METABOLIC PANEL,BMP [CHEM] Timed INR,PT,PROTHROMBIN TIME [COAG] Timed - Plan Plan:: ASSESSMENT AND PLAN - Acute decompensated congestive heart failure-combined systolic and diastolic with acute respiratory failure with hypoxia. Echo appeared to show mildly reduced ejection fraction and severe TR. Formal read is pending. Good response to bumetanide overnight. -Continue phenylephrine to provide enough blood pressure for diuresis -Bumetanide every 12 hours -Consider norepinephrine to phenylephrine not effective enough -Follow-up formal echo read -Insert Menjivar catheter -Strict intake and output monitoring -Cardiac monitoring -Continue metoprolol -Wrap lower legs to the thighs -Supplement oxygen as needed Hypokalemia-mild, plan to supplement today and recheck tomorrow. Elevated troponin-mild elevation likely related to demand ischemia in the setting of heart failure and mild hypoxia. Chronic atrial fibrillation-rate controlled better this morning. INR was supratherapeutic and is slowly improving. -Continue metoprolol for rate control -Consider digoxin if additional rate control needed -Hold warfarin today -INR in the morning -INR goal is 2.5-3.5 Stage III chronic kidney disease-baseline creatinine of 1-1.1 and now at 1.4. Hopefully will improve with improved blood pressure. 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 -Continue medical management Maintenance issues - -DVT prophylaxis-warfarin -GI prophylaxis-PPI -[id number] -Menjivar catheter-placed for strict intake and output monitoring in a critical heart failure patient Disposition -I anticipate discharge home with home care after the hospital stay Primary care physician -Dr. Vanda Benitez M.D.
[2021-01-17] MEDS: Spironolactone 25 MG Tab PO SCH (10:54)
[2021-01-17] MEDS: Melatonin 3 MG Tab PO PRN (21:38)
[2021-01-18] MEDS: Spironolactone 25 MG Tab PO SCH (09:06)
[2021-01-18] MEDS: Rosuvastatin 10 MG Tab PO SCH (09:06)
[2021-01-18] MEDS: Potassium Chloride 20 MEQ Tab.ER PO SCH ×2 (09:07→21:02)
[2021-01-18] MEDS: levETIRAcetam 250 MG Tab PO SCH ×2 (09:07→16:11)
[2021-01-18] MEDS: Memantine 10 MG Tab PO SCH ×2 (09:08→21:02)
[2021-01-18] MEDS: Metoprolol Succinate 50 MG Tab.ER PO SCH ×2 (09:08→21:02)
[2021-01-18] MEDS: Bumetanide 2.5 MG/10 ML MDV IVPUSH SCH ×2 (09:09→21:03)
--- NOTE | 2021-01-18 09:44 | PCM.PN ---
- General Info Date of Service: 01/18/21 Subjective Update: No acute events overnight. She had a pretty good response to diuresis yesterday and weight is down a few pounds. Legs below the knee have improved quite a bit as far as the swelling is concerned. Still has significant thigh and buttock swelling as well as right arm swelling. She thinks her shortness of breath is a little better. Appetite has been acceptable. Tolerating the phenylephrine infusion. No fevers. No significant cough. Kidney function better today. Functional Status: Reports: Pain Controlled, Tolerating Diet - Review of Systems General: Reports: Weakness Pulmonary: Reports: Shortness of Breath Cardiovascular: Reports: Edema - Patient Data Vitals - Most Recent: Last Vital Signs Temp 36.6 C 01/18/21 08:00 Pulse 90 01/18/21 09:08 Resp 18 01/18/21 08:00 BP 109/52 L 01/18/21 09:08 Pulse Ox 93 L 01/18/21 08:00 Weight - Most Recent: 61.462 kg I&O - Last 24 Hours: Intake & Output 01/17/21 01/18/21 01/18/21 22:59 06:59 14:59 Intake Total 348 555 Output Total 1100 Balance 348 -545 Lab Results Last 24 Hours: Laboratory Results - last 24 hr 01/18/21 01/18/21 Range/Units 04:45 04:45 PT 15.4 H (9.5-12.0) sec INR 1.42 H D (0.80-1.20) Sodium 141 (140-148) mmol/L Potassium 4.4 (3.6-5.2) mmol/L Chloride 105 (100-108) mmol/L Carbon Dioxide 32 (21-32) mmol/L Anion Gap 4.2 L (5.0-14.0) mmol/L BUN 25 H (7-18) mg/dL Creatinine 0.9 (0.6-1.0) mg/dL Est Cr Clr Drug Dosing 39.54 mL/min Estimated GFR (MDRD) > 60 (>60) Glucose 97 (74-106) mg/dL Calcium 8.0 L (8.5-10.1) mg/dL Med Orders - Current: Current Medications Acetaminophen (Acetaminophen 325 Mg Tab) 650 mg PO Q4H PRN PRN Reason: Pain (Mild 1-3)/fever Last Admin: 01/17/21 04:17 Dose: 650 mg Documented by: Albuterol (Albuterol 0.083% 2.5 Mg/3 Ml Neb Soln) 2.5 mg NEB Q4H PRN PRN Reason: Shortness Of Breath/wheezing Bumetanide (Bumetanide 2.5 Mg/10 Ml Mdv) 2 mg IVPUSH Q12H [facility] Last Admin: 01/18/21 09:09 Dose: 2 mg Documented by: Phenylephrine HCl 40 mg/ (Dextrose/Water) 254 mls @ 15.24 mls/hr IV TITRATE [facility]; Protocol Last Admin: 01/18/21 07:09 Dose: 75 mcg/min, 28.575 mls/hr Documented by: Levetiracetam (Levetiracetam 250 Mg Tab) 1,000 mg PO QPM [facility] Last Admin: 01/17/21 17:42 Dose: 1,000 mg Documented by: Levetiracetam (Levetiracetam 250 Mg Tab) 500 mg PO DAILY [facility] Last Admin: 01/18/21 09:07 Dose: 500 mg Documented by: Magnesium Hydroxide (Magnesium Hydroxide 400 Mg/5 Ml Susp 30 Ml Cup) 30 ml PO Q12H PRN PRN Reason: Constipation Melatonin (Melatonin 3 Mg Tab) 9 mg PO BEDTIME PRN PRN Reason: Sleep Last Admin: 01/17/21 21:38 Dose: 9 mg Documented by: Memantine (Memantine 10 Mg Tab) 5 mg PO BID [facility] Last Admin: 01/18/21 09:08 Dose: 5 mg Documented by: Metoprolol Succinate (Metoprolol Succinate 50 Mg Tab.Er) 50 mg PO BID [facility] Last Admin: 01/18/21 09:08 Dose: 50 mg Documented by: Ondansetron HCl (Ondansetron 4 Mg Tab.Dis) 4 mg PO Q6H PRN PRN Reason: Nausea able to take PO Ondansetron HCl (Ondansetron 4 Mg/2 Ml Sdv) 4 mg IV Q6H PRN PRN Reason: Nausea/Vomiting Potassium Chloride (Potassium Chloride 20 Meq Tab.Er) 40 meq PO BID [facility] Last Admin: 01/18/21 09:07 Dose: 40 meq Documented by: Rosuvastatin Calcium (Rosuvastatin 10 Mg Tab) 10 mg PO DAILY [facility] Last Admin: 01/18/21 09:06 Dose: 10 mg Documented by: Senna/Docusate Sodium (Docusate Sodium/Sennosides 50-8.6 Mg Tab) 1 tab PO BID PRN PRN Reason: Constipation Sodium Chloride (Sodium Chloride 0.9% 10 Ml Syringe) 10 ml FLUSH ASDIRECTED PRN PRN Reason: Keep Vein Open Spironolactone (Spironolactone 25 Mg Tab) 25 mg PO DAILY [facility] Last Admin: 01/18/21 09:06 Dose: 25 mg Documented by: Warfarin Sodium (Warfarin 5 Mg Tab) 5 mg PO ONETIME ONE Stop: 01/18/21 13:01 Discontinued Medications Bumetanide (Bumetanide 1 Mg/4 Ml Mdv) 2 mg IVPUSH ONETIME ONE Stop: 01/16/21 22:01 Last Admin: 01/16/21 22:20 Dose: 2 mg Documented by: Digoxin (Digoxin 500 Mcg/2 Ml Amp) 125 mcg IVPUSH ONETIME ONE Stop: 01/15/21 19:32 Last Admin: 01/15/21 19:49 Dose: 125 mcg Documented by: Digoxin (Digoxin 500 Mcg/2 Ml Amp) 125 mcg IVPUSH ONETIME ONE Stop: 01/16/21 11:01 Last Admin: 01/16/21 11:38 Dose: 125 mcg Documented by: Furosemide (Furosemide 40 Mg/4 Ml Vial) 40 mg IVPUSH ONETIME ONE Stop: 01/15/21 18:17 Last Admin: 01/15/21 19:42 Dose: 40 mg Documented by: Furosemide (Furosemide 40 Mg/4 Ml Vial) 40 mg IVPUSH ONETIME ONE Stop: 01/16/21 15:46 Last Admin: 01/16/21 16:37 Dose: 40 mg Documented by: Phytonadione (Phytonadione 5 Mg Tab) 5 mg PO ONETIME ONE Stop: 01/15/21 18:18 Last Admin: 01/15/21 19:48 Dose: 5 mg Documented by: Warfarin Sodium (Warfarin 2.5 Mg Tab) 2.5 mg PO MoWeFr@1300 [facility] Warfarin Sodium (Warfarin 2.5 Mg Tab) 1.25 mg PO SuTuThSa@1300 [facility] Last Admin: 01/15/21 18:10 Dose: 1.25 mg Documented by: - Exam Quality Assessment: Supplemental Oxygen Urinary Catheter Total Time: 0Days 0Hours General: Alert, Oriented, Cooperative, No Acute Distress Lungs: Normal Respiratory Effort, Decreased Breath Sounds (right lung base), Crackles (few right lung base) Cardiovascular: Regular Rate, Irregular Rhythm, Murmurs GI/Abdominal Exam: Soft, No Distention Extremities: Pedal Edema (pitting edema from knees to the waist bilaterally, m ild edema below the knees ). No: Increased Warmth Skin: Warm, Dry, Other (chronic venous stasis changes both lower legs ) Psy/Mental Status: Alert, Normal Affect - Patient Data Lab Results Last 24 hrs: Laboratory Results - last 24 hr 01/18/21 01/18/21 Range/Units 04:45 04:45 PT 15.4 H (9.5-12.0) sec INR 1.42 H D (0.80-1.20) Sodium 141 (140-148) mmol/L Potassium 4.4 (3.6-5.2) mmol/L Chloride 105 (100-108) mmol/L Carbon Dioxide 32 (21-32) mmol/L Anion Gap 4.2 L (5.0-14.0) mmol/L BUN 25 H (7-18) mg/dL Creatinine 0.9 (0.6-1.0) mg/dL Est Cr Clr Drug Dosing 39.54 mL/min Estimated GFR (MDRD) > 60 (>60) Glucose 97 (74-106) mg/dL Calcium 8.0 L (8.5-10.1) mg/dL Result Diagrams: 01/17/21 05:30 01/18/21 04:45 Sepsis Event Note - Evaluation Sepsis Screening Result: No Definite Risk - Focused Exam Vital Signs: Vital Signs Temp Pulse Pulse Resp BP BP Pulse Ox 01/18/21 09:08 90 109/52 L 01/18/21 08:00 36.6 C 80 18 109/52 L 93 L 01/18/21 07:00 79 15 110/56 L 91 L 01/18/21 06:00 36.5 C 17 109/61 94 L 01/18/21 05:00 36.4 C 20 93/57 L 93 L 01/18/21 04:00 18 102/54 L 95 01/18/21 03:00 18 103/57 L 94 L 01/18/21 02:00 19 101/57 L 93 L 01/18/21 01:00 36.2 C 24 H 105/52 L 95 01/18/21 00:00 21 H 101/71 93 L 01/17/21 23:00 22 H 115/77 93 L 01/17/21 22:00 21 H 117/67 93 L - Problem List & Annotations (1) Acute decompensated heart failure SNOMED Code(s): 70267372, 927549045 Code(s): I50.9 - HEART FAILURE, UNSPECIFIED Status: Acute Current Visit: Yes Annotation/Comment:: Combined systolic and diastolic with severe tricuspid regurgitation (2) Acute respiratory failure with hypoxia SNOMED Code(s): 77560163, 689697721 Code(s): J96.01 - ACUTE RESPIRATORY FAILURE WITH HYPOXIA Status: Acute Current Visit: Yes (3) Stage 3 chronic kidney disease SNOMED Code(s): 136129646 Code(s): N18.30 - CHRONIC KIDNEY DISEASE, STAGE 3 UNSPECIFIED Status: Chronic Current Visit: Yes Qualifiers: Chronic kidney disease stage 3 subtype: stage 3a (GFR 45-59) Qualified Code(s): N18.31 - Chronic kidney disease, stage 3a (4) 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 SNOMED Code(s): 03639145199971016 Code(s): Z86.73 - PRSNL HX OF TIA (TIA), AND CEREB INFRC W/O RESID DEFICITS Status: Chronic Current Visit: Yes (5) Chronic atrial fibrillation SNOMED Code(s): 966148830 Code(s): I48.2 - CHRONIC ATRIAL FIBRILLATION * DO NOT USE * Status: Chronic Current Visit: No - Problem List Review Problem List Initiated/Reviewed/Updated: Yes - My Orders Last 24 Hours: My Active Orders 01/17/21 09:00 Potassium Chloride [Klor-Con M20] 40 meq PO BID 01/17/21 10:00 Bumetanide [Bumex] 2 mg IVPUSH Q12H Spironolactone [Aldactone] 25 mg PO DAILY 01/18/21 13:00 Warfarin [Coumadin] 5 mg PO ONETIME ONE 01/18/21 17:00 Insert Menjivar Catheter [Insert Urinary Catheter] [OM.PC] Q24H 01/19/21 05:00 BASIC METABOLIC PANEL,BMP [CHEM] Timed INR,PT,PROTHROMBIN TIME [COAG] Timed - Plan Plan:: ASSESSMENT AND PLAN - Acute decompensated congestive heart failure-combined systolic and diastolic with acute respiratory failure with hypoxia. Responding well to Bumex with accompanying vasopressor support. -Continue phenylephrine to provide enough blood pressure for diuresis -Bumetanide every 12 hours -Consider norepinephrine to phenylephrine not effective enough -Follow-up formal echo read -Continue Menjivar catheter -Strict intake and output monitoring -Cardiac monitoring -Continue metoprolol -Wrap lower legs to the thighs -Supplement oxygen as needed Hypokalemia-mild, plan to supplement today and recheck tomorrow. Elevated troponin-mild elevation likely related to demand ischemia in the setting of heart failure and mild hypoxia. Chronic atrial fibrillation-rate controlled better this morning. INR now s ubtherapeutic. -Continue metoprolol for rate control -Consider digoxin if additional rate control needed -5 mg of warfarin today -INR in the morning -INR goal is 2.5-3.5 Stage III chronic kidney disease-creatinine now back to baseline. 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 -Continue medical management Maintenance issues - -DVT prophylaxis-warfarin -GI prophylaxis-PPI -[id number] -Menjivar catheter-placed for strict intake and output monitoring in a critical heart failure patient Disposition -I anticipate discharge home with home care after the hospital stay Primary care physician -Dr. Vanda Benitez M.D.
[2021-01-18] MEDS ORDERED: Warfarin 5 MG Tab PO ONE (13:00)
[2021-01-18] MEDS: Melatonin 3 MG Tab PO PRN (21:34)
[2021-01-19] MEDS: Spironolactone 25 MG Tab PO SCH (08:42)
[2021-01-19] MEDS: Rosuvastatin 10 MG Tab PO SCH (08:43)
[2021-01-19] MEDS: levETIRAcetam 250 MG Tab PO SCH ×2 (08:43→17:25)
[2021-01-19] MEDS: Memantine 10 MG Tab PO SCH ×2 (08:44→21:39)
[2021-01-19] MEDS: Potassium Chloride 20 MEQ Tab.ER PO SCH (08:44)
[2021-01-19] MEDS: Metoprolol Succinate 50 MG Tab.ER PO SCH ×2 (08:45→21:37)
--- NOTE | 2021-01-19 09:04 | PCM.PN ---
- General Info Date of Service: 01/19/21 Subjective Update: Good response to diuresis. Tolerating the phenylephrine infusion. Edema slowly improving. Right arm edema is better after a compression glove was placed yeste rday. Patient reports shortness of breath is slowly improving. Appetite has not been great but acceptable. Kidney function stable with the diuresis. Slowly improving with management so far. Functional Status: Reports: Pain Controlled, Tolerating Diet - Review of Systems General: Reports: Weakness Pulmonary: Reports: Shortness of Breath Cardiovascular: Reports: Edema - Patient Data Vitals - Most Recent: Last Vital Signs Temp 36.0 C L 01/19/21 05:00 Pulse 101 H 01/19/21 08:45 Resp 19 01/19/21 07:00 BP 106/62 01/19/21 08:45 Pulse Ox 95 01/19/21 07:00 Weight - Most Recent: 59.9 kg I&O - Last 24 Hours: Intake & Output 01/18/21 01/19/21 01/19/21 22:59 06:59 14:59 Intake Total 1417 332 Output Total 285 610 Balance 1132 -278 Lab Results Last 24 Hours: Laboratory Results - last 24 hr 01/19/21 01/19/21 Range/Units 04:10 04:10 PT 21.0 H (9.5-12.0) sec INR 1.95 H (0.80-1.20) Sodium 141 (140-148) mmol/L Potassium 5.0 (3.6-5.2) mmol/L Chloride 102 (100-108) mmol/L Carbon Dioxide 33 H (21-32) mmol/L Anion Gap 11.0 (5.0-14.0) mmol/L BUN 21 H (7-18) mg/dL Creatinine 1.0 (0.6-1.0) mg/dL Est Cr Clr Drug Dosing 35.59 mL/min Estimated GFR (MDRD) 54 L (>60) Glucose 97 (74-106) mg/dL Calcium 8.2 L (8.5-10.1) mg/dL Med Orders - Current: Current Medications Acetaminophen (Acetaminophen 325 Mg Tab) 650 mg PO Q4H PRN PRN Reason: Pain (Mild 1-3)/fever Last Admin: 01/17/21 04:17 Dose: 650 mg Documented by: Albuterol (Albuterol 0.083% 2.5 Mg/3 Ml Neb Soln) 2.5 mg NEB Q4H PRN PRN Reason: Shortness Of Breath/wheezing Bumetanide (Bumetanide 2.5 Mg/10 Ml Mdv) 2 mg IVPUSH Q12H [facility] Last Admin: 01/18/21 21:03 Dose: 2 mg Documented by: Phenylephrine HCl 40 mg/ (Dextrose/Water) 254 mls @ 15.24 mls/hr IV TITRATE [facility]; Protocol Last Admin: 01/19/21 01:10 Dose: 75 mcg/min, 28.575 mls/hr Documented by: Levetiracetam (Levetiracetam 250 Mg Tab) 1,000 mg PO QPM [facility] Last Admin: 01/18/21 16:11 Dose: 1,000 mg Documented by: Levetiracetam (Levetiracetam 250 Mg Tab) 500 mg PO DAILY [facility] Last Admin: 01/19/21 08:43 Dose: 500 mg Documented by: Magnesium Hydroxide (Magnesium Hydroxide 400 Mg/5 Ml Susp 30 Ml Cup) 30 ml PO Q12H PRN PRN Reason: Constipation Melatonin (Melatonin 3 Mg Tab) 9 mg PO BEDTIME PRN PRN Reason: Sleep Last Admin: 01/18/21 21:34 Dose: 9 mg Documented by: Memantine (Memantine 10 Mg Tab) 5 mg PO BID [facility] Last Admin: 01/19/21 08:44 Dose: 5 mg Documented by: Metoprolol Succinate (Metoprolol Succinate 50 Mg Tab.Er) 50 mg PO BID [facility] Last Admin: 01/19/21 08:45 Dose: 50 mg Documented by: Ondansetron HCl (Ondansetron 4 Mg Tab.Dis) 4 mg PO Q6H PRN PRN Reason: Nausea able to take PO Ondansetron HCl (Ondansetron 4 Mg/2 Ml Sdv) 4 mg IV Q6H PRN PRN Reason: Nausea/Vomiting Potassium Chloride (Potassium Chloride 20 Meq Tab.Er) 40 meq PO BID [facility] Last Admin: 01/19/21 08:44 Dose: 40 meq Documented by: Rosuvastatin Calcium (Rosuvastatin 10 Mg Tab) 10 mg PO DAILY [facility] Last Admin: 01/19/21 08:43 Dose: 10 mg Documented by: Senna/Docusate Sodium (Docusate Sodium/Sennosides 50-8.6 Mg Tab) 1 tab PO BID PRN PRN Reason: Constipation Sodium Chloride (Sodium Chloride 0.9% 10 Ml Syringe) 10 ml FLUSH ASDIRECTED PRN PRN Reason: Keep Vein Open Spironolactone (Spironolactone 25 Mg Tab) 25 mg PO DAILY [facility] Last Admin: 01/19/21 08:42 Dose: 25 mg Documented by: Warfarin Sodium (Warfarin 5 Mg Tab) 5 mg PO ONETIME ONE Stop: 01/19/21 13:01 Discontinued Medications Bumetanide (Bumetanide 1 Mg/4 Ml Mdv) 2 mg IVPUSH ONETIME ONE Stop: 01/16/21 22:01 Last Admin: 01/16/21 22:20 Dose: 2 mg Documented by: Digoxin (Digoxin 500 Mcg/2 Ml Amp) 125 mcg IVPUSH ONETIME ONE Stop: 01/15/21 19:32 Last Admin: 01/15/21 19:49 Dose: 125 mcg Documented by: Digoxin (Digoxin 500 Mcg/2 Ml Amp) 125 mcg IVPUSH ONETIME ONE Stop: 01/16/21 11:01 Last Admin: 01/16/21 11:38 Dose: 125 mcg Documented by: Furosemide (Furosemide 40 Mg/4 Ml Vial) 40 mg IVPUSH ONETIME ONE Stop: 01/15/21 18:17 Last Admin: 01/15/21 19:42 Dose: 40 mg Documented by: Furosemide (Furosemide 40 Mg/4 Ml Vial) 40 mg IVPUSH ONETIME ONE Stop: 01/16/21 15:46 Last Admin: 01/16/21 16:37 Dose: 40 mg Documented by: Phytonadione (Phytonadione 5 Mg Tab) 5 mg PO ONETIME ONE Stop: 01/15/21 18:18 Last Admin: 01/15/21 19:48 Dose: 5 mg Documented by: Warfarin Sodium (Warfarin 2.5 Mg Tab) 2.5 mg PO MoWeFr@1300 [facility] Warfarin Sodium (Warfarin 2.5 Mg Tab) 1.25 mg PO SuTuThSa@1300 [facility] Last Admin: 01/15/21 18:10 Dose: 1.25 mg Documented by: Warfarin Sodium (Warfarin 5 Mg Tab) 5 mg PO ONETIME ONE Stop: 01/18/21 13:01 Last Admin: 01/18/21 12:22 Dose: 5 mg Documented by: - Exam Quality Assessment: Supplemental Oxygen Urinary Catheter Total Time: 0Days 0Hours General: Alert, Oriented, Cooperative, No Acute Distress Lungs: Normal Respiratory Effort, Crackles (few both bases) Cardiovascular: Regular Rate, Irregular Rhythm, Murmurs GI/Abdominal Exam: Soft, No Distention Back Exam: Other (pitting edema lower back ) Extremities: Pedal Edema (mild lower legs with massive pitting edema both upper legs onto the waist ). No: Increased Warmth Skin: Warm, Dry, Other (venous stasis changes both lower legs ) Psy/Mental Status: Alert, Normal Affect - Patient Data Lab Results Last 24 hrs: Laboratory Results - last 24 hr 01/19/21 01/19/21 Range/Units 04:10 04:10 PT 21.0 H (9.5-12.0) sec INR 1.95 H (0.80-1.20) Sodium 141 (140-148) mmol/L Potassium 5.0 (3.6-5.2) mmol/L Chloride 102 (100-108) mmol/L Carbon Dioxide 33 H (21-32) mmol/L Anion Gap 11.0 (5.0-14.0) mmol/L BUN 21 H (7-18) mg/dL Creatinine 1.0 (0.6-1.0) mg/dL Est Cr Clr Drug Dosing 35.59 mL/min Estimated GFR (MDRD) 54 L (>60) Glucose 97 (74-106) mg/dL Calcium 8.2 L (8.5-10.1) mg/dL Result Diagrams: 01/17/21 05:30 01/19/21 04:10 Sepsis Event Note - Evaluation Sepsis Screening Result: No Definite Risk - Focused Exam Vital Signs: Vital Signs Temp Pulse Pulse Resp BP BP Pulse Ox 01/19/21 08:45 101 H 106/62 01/19/21 07:00 90 19 106/55 L 95 01/19/21 06:00 84 21 H 118/55 L 91 L 01/19/21 05:00 36.0 C L 96 24 H 101/61 92 L 01/19/21 04:00 96 20 103/63 90 L 01/19/21 03:00 97 23 H 103/60 91 L 01/19/21 02:00 36.4 C 87 19 97/58 L 92 L 01/19/21 01:00 96 20 103/64 92 L 01/19/21 00:00 93 30 H 102/63 92 L 01/18/21 23:00 80 18 92/58 L 95 01/18/21 22:00 81 27 H 92/58 L 90 L - Problem List & Annotations (1) Acute decompensated heart failure SNOMED Code(s): 18010456, 292320433 Code(s): I50.9 - HEART FAILURE, UNSPECIFIED Status: Acute Current Visit: Yes Annotation/Comment:: Combined systolic and diastolic with severe tricuspid regurgitation (2) Acute respiratory failure with hypoxia SNOMED Code(s): 83621259, 629388170 Code(s): J96.01 - ACUTE RESPIRATORY FAILURE WITH HYPOXIA Status: Acute Current Visit: Yes (3) Stage 3 chronic kidney disease SNOMED Code(s): 758808685 Code(s): N18.30 - CHRONIC KIDNEY DISEASE, STAGE 3 UNSPECIFIED Status: Chronic Current Visit: Yes Qualifiers: Chronic kidney disease stage 3 subtype: stage 3a (GFR 45-59) Qualified Code(s): N18.31 - Chronic kidney disease, stage 3a (4) 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 SNOMED Code(s): 96945502127780342 Code(s): Z86.73 - PRSNL HX OF TIA (TIA), AND CEREB INFRC W/O RESID DEFICITS Status: Chronic Current Visit: Yes (5) Chronic atrial fibrillation SNOMED Code(s): 422769381 Code(s): I48.2 - CHRONIC ATRIAL FIBRILLATION * DO NOT USE * Status: Chronic Current Visit: No - Problem List Review Problem List Initiated/Reviewed/Updated: Yes - My Orders Last 24 Hours: My Active Orders 01/18/21 13:53 OT Evaluation and Treatment [CONS] Routine 01/19/21 13:00 Warfarin [Coumadin] 5 mg PO ONETIME ONE 01/19/21 17:00 Insert Menjivar Catheter [Insert Urinary Catheter] [OM.PC] Q24H 01/20/21 05:00 BASIC METABOLIC PANEL,BMP [CHEM] Timed INR,PT,PROTHROMBIN TIME [COAG] Timed - Plan Plan:: ASSESSMENT AND PLAN - Acute decompensated congestive heart failure-combined systolic and diastolic with acute respiratory failure with hypoxia. Responding well to bumetanide with accompanying vasopressor support. -Continue phenylephrine to provide enough blood pressure for diuresis -Bumetanide every 12 hours -Continue spironolactone -Consider norepinephrine to phenylephrine not effective enough -Follow-up formal echo read -Continue Menjivar catheter -Strict intake and output monitoring -Cardiac monitoring -Continue metoprolol -Wrap lower legs to the thighs -Supplement oxygen as needed Hypokalemia-improved with supplementation. Elevated troponin-mild elevation likely related to demand ischemia in the setting of heart failure and mild hypoxia. Chronic atrial fibrillation-rate controlled better this morning. INR still slightly subtherapeutic but improving. -Continue metoprolol for rate control -Consider digoxin if additional rate control needed -5 mg of warfarin today -INR in the morning -INR goal is 2.5-3.5 Stage III chronic kidney disease-creatinine now back to baseline and stable. 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 -Continue medical management Maintenance issues - -DVT prophylaxis-warfarin -GI prophylaxis-PPI -[id number] -Menjivar catheter-placed for strict intake and output monitoring in a critical heart failure patient Disposition -I anticipate discharge home with home care after the hospital stay Primary care physician -Dr. Vanda Benitez M.D.
[2021-01-19] MEDS: Bumetanide 2.5 MG/10 ML MDV IVPUSH SCH ×2 (09:45→21:37)
[2021-01-19] MEDS ORDERED: Warfarin 5 MG Tab PO ONE (13:00)
[2021-01-19] MEDS: Acetaminophen 325 MG Tab PO PRN (14:41)
[2021-01-19] MEDS: Magnesium Hydroxide 400 MG/5 ML Susp 30 ML Cup PO PRN (21:39)
[2021-01-20] MEDS ORDERED: Phytonadione 5 MG Tab PO ONE (08:30)
[2021-01-20] MEDS: Rosuvastatin 10 MG Tab PO SCH (08:31)
[2021-01-20] MEDS: Spironolactone 25 MG Tab PO SCH (08:32)
[2021-01-20] MEDS: Metoprolol Succinate 50 MG Tab.ER PO SCH ×2 (08:33→21:19)
[2021-01-20] MEDS: Memantine 10 MG Tab PO SCH ×2 (08:33→21:19)
[2021-01-20] MEDS: levETIRAcetam 250 MG Tab PO SCH ×2 (08:34→16:39)
--- NOTE | 2021-01-20 09:03 | PCM.PN ---
- General Info Date of Service: 01/20/21 Subjective Update: No acute events overnight. She continues to have a good response to the bumetanide injections in the setting of phenylephrine infusion. Edema is steadily improving but still remains significant especially in dependent areas. Left and right arm swelling have both improved since yesterday. She does not report any shortness of breath but does continue to require some supplemental oxygen. Kidney function is stable. INR was supratherapeutic again today. Functional Status: Reports: Pain Controlled, Tolerating Diet - Review of Systems General: Reports: Weakness Cardiovascular: Reports: Edema - Patient Data Vitals - Most Recent: Last Vital Signs Temp 36.4 C 01/20/21 06:00 Pulse 82 01/20/21 08:33 Resp 17 01/20/21 06:00 BP 101/52 L 01/20/21 08:33 Pulse Ox 94 L 01/20/21 06:00 Weight - Most Recent: 59.6 kg I&O - Last 24 Hours: Intake & Output 01/19/21 01/20/21 01/20/21 22:59 06:59 14:59 Intake Total 1196 458 Output Total 1000 105 Balance 196 -59" Lab Results Last 24 Hours: Laboratory Results - last 24 hr 01/20/21 01/20/21 Range/Units 04:45 04:45 PT 69.3 H (9.5-12.0) sec INR 6.60 H* D (0.80-1.20) Sodium 139 L (140-148) mmol/L Potassium 4.5 (3.6-5.2) mmol/L Chloride 102 (100-108) mmol/L Carbon Dioxide 34 H (21-32) mmol/L Anion Gap 7.5 (5.0-14.0) mmol/L BUN 23 H (7-18) mg/dL Creatinine 0.8 (0.6-1.0) mg/dL Est Cr Clr Drug Dosing 44.49 mL/min Estimated GFR (MDRD) > 60 (>60) Glucose 98 (74-106) mg/dL Calcium 8.1 L (8.5-10.1) mg/dL Med Orders - Current: Current Medications Acetaminophen (Acetaminophen 325 Mg Tab) 650 mg PO Q4H PRN PRN Reason: Pain (Mild 1-3)/fever Last Admin: 01/19/21 14:41 Dose: 650 mg Documented by: Albuterol (Albuterol 0.083% 2.5 Mg/3 Ml Neb Soln) 2.5 mg NEB Q4H PRN PRN Reason: Shortness Of Breath/wheezing Bumetanide (Bumetanide 2.5 Mg/10 Ml Mdv) 2 mg IVPUSH Q12H [facility] Last Admin: 01/19/21 21:37 Dose: 2 mg Documented by: Phenylephrine HCl 40 mg/ (Dextrose/Water) 254 mls @ 15.24 mls/hr IV TITRATE [facility]; Protocol Last Admin: 01/20/21 03:51 Dose: 75 mcg/min, 28.575 mls/hr Documented by: Levetiracetam (Levetiracetam 250 Mg Tab) 1,000 mg PO QPM [facility] Last Admin: 01/19/21 17:25 Dose: 1,000 mg Documented by: Levetiracetam (Levetiracetam 250 Mg Tab) 500 mg PO DAILY [facility] Last Admin: 01/20/21 08:34 Dose: 500 mg Documented by: Magnesium Hydroxide (Magnesium Hydroxide 400 Mg/5 Ml Susp 30 Ml Cup) 30 ml PO Q12H PRN PRN Reason: Constipation Last Admin: 01/19/21 21:39 Dose: 30 ml Documented by: Melatonin (Melatonin 3 Mg Tab) 9 mg PO BEDTIME PRN PRN Reason: Sleep Last Admin: 01/18/21 21:34 Dose: 9 mg Documented by: Memantine (Memantine 10 Mg Tab) 5 mg PO BID [facility] Last Admin: 01/20/21 08:33 Dose: 5 mg Documented by: Metoprolol Succinate (Metoprolol Succinate 50 Mg Tab.Er) 50 mg PO BID [facility] Last Admin: 01/20/21 08:33 Dose: 50 mg Documented by: Ondansetron HCl (Ondansetron 4 Mg Tab.Dis) 4 mg PO Q6H PRN PRN Reason: Nausea able to take PO Ondansetron HCl (Ondansetron 4 Mg/2 Ml Sdv) 4 mg IV Q6H PRN PRN Reason: Nausea/Vomiting Rosuvastatin Calcium (Rosuvastatin 10 Mg Tab) 10 mg PO DAILY [facility] Last Admin: 01/20/21 08:31 Dose: 10 mg Documented by: Senna/Docusate Sodium (Docusate Sodium/Sennosides 50-8.6 Mg Tab) 1 tab PO BID PRN PRN Reason: Constipation Sodium Chloride (Sodium Chloride 0.9% 10 Ml Syringe) 10 ml FLUSH ASDIRECTED PRN PRN Reason: Keep Vein Open Spironolactone (Spironolactone 25 Mg Tab) 25 mg PO DAILY [facility] Last Admin: 01/20/21 08:32 Dose: 25 mg Documented by: Discontinued Medications Bumetanide (Bumetanide 1 Mg/4 Ml Mdv) 2 mg IVPUSH ONETIME ONE Stop: 01/16/21 22:01 Last Admin: 01/16/21 22:20 Dose: 2 mg Documented by: Digoxin (Digoxin 500 Mcg/2 Ml Amp) 125 mcg IVPUSH ONETIME ONE Stop: 01/15/21 19:32 Last Admin: 01/15/21 19:49 Dose: 125 mcg Documented by: Digoxin (Digoxin 500 Mcg/2 Ml Amp) 125 mcg IVPUSH ONETIME ONE Stop: 01/16/21 11:01 Last Admin: 01/16/21 11:38 Dose: 125 mcg Documented by: Furosemide (Furosemide 40 Mg/4 Ml Vial) 40 mg IVPUSH ONETIME ONE Stop: 01/15/21 18:17 Last Admin: 01/15/21 19:42 Dose: 40 mg Documented by: Furosemide (Furosemide 40 Mg/4 Ml Vial) 40 mg IVPUSH ONETIME ONE Stop: 01/16/21 15:46 Last Admin: 01/16/21 16:37 Dose: 40 mg Documented by: Phytonadione (Phytonadione 5 Mg Tab) 5 mg PO ONETIME ONE Stop: 01/15/21 18:18 Last Admin: 01/15/21 19:48 Dose: 5 mg Documented by: Phytonadione (Phytonadione 5 Mg Tab) 2.5 mg PO ONETIME ONE Stop: 01/20/21 08:31 Last Admin: 01/20/21 08:43 Dose: 2.5 mg Documented by: Potassium Chloride (Potassium Chloride 20 Meq Tab.Er) 40 meq PO BID [facility] Last Admin: 01/19/21 08:44 Dose: 40 meq Documented by: Warfarin Sodium (Warfarin 2.5 Mg Tab) 2.5 mg PO MoWeFr@1300 [facility] Warfarin Sodium (Warfarin 2.5 Mg Tab) 1.25 mg PO SuTuThSa@1300 [facility] Last Admin: 01/15/21 18:10 Dose: 1.25 mg Documented by: Warfarin Sodium (Warfarin 5 Mg Tab) 5 mg PO ONETIME ONE Stop: 01/18/21 13:01 Last Admin: 01/18/21 12:22 Dose: 5 mg Documented by: Warfarin Sodium (Warfarin 5 Mg Tab) 5 mg PO ONETIME ONE Stop: 01/19/21 13:01 Last Admin: 01/19/21 14:37 Dose: 5 mg Documented by: - Exam Quality Assessment: Supplemental Oxygen Urinary Catheter Total Time: 4Days 4Hours General: Alert, Oriented, Cooperative, No Acute Distress Lungs: Clear to Auscultation, Normal Respiratory Effort Cardiovascular: Regular Rate, Irregular Rhythm, Murmurs GI/Abdominal Exam: Soft, No Distention Extremities: Other (pitting edema of both upper legs onto the waist and lower back ). No: Increased Warmth Skin: Warm, Dry, Other (venous stasis changes both lower legs ) Psy/Mental Status: Alert, Normal Affect - Patient Data Lab Results Last 24 hrs: Laboratory Results - last 24 hr 01/20/21 01/20/21 Range/Units 04:45 04:45 PT 69.3 H (9.5-12.0) sec INR 6.60 H* D (0.80-1.20) Sodium 139 L (140-148) mmol/L Potassium 4.5 (3.6-5.2) mmol/L Chloride 102 (100-108) mmol/L Carbon Dioxide 34 H (21-32) mmol/L Anion Gap 7.5 (5.0-14.0) mmol/L BUN 23 H (7-18) mg/dL Creatinine 0.8 (0.6-1.0) mg/dL Est Cr Clr Drug Dosing 44.49 mL/min Estimated GFR (MDRD) > 60 (>60) Glucose 98 (74-106) mg/dL Calcium 8.1 L (8.5-10.1) mg/dL Result Diagrams: 01/17/21 05:30 01/20/21 04:45 Sepsis Event Note - Evaluation Sepsis Screening Result: No Definite Risk - Focused Exam Vital Signs: Vital Signs Temp Pulse Resp BP BP Pulse Ox 01/20/21 08:33 82 101/52 L 01/20/21 06:00 36.4 C 17 101/52 L 94 L 01/20/21 03:00 36.4 C 16 100/48 L 95 01/20/21 00:00 25 H 89/50 L 95 01/19/21 23:00 36.6 C 23 H 92/50 L 97 01/19/21 21:37 84 108/50 L - Problem List & Annotations (1) Acute decompensated heart failure SNOMED Code(s): 61990008, 800534485 Code(s): I50.9 - HEART FAILURE, UNSPECIFIED Status: Acute Current Visit: Yes Annotation/Comment:: Combined systolic and diastolic with severe tricuspid regurgitation (2) Acute respiratory failure with hypoxia SNOMED Code(s): 66125582, 701646985 Code(s): J96.01 - ACUTE RESPIRATORY FAILURE WITH HYPOXIA Status: Acute Current Visit: Yes (3) Stage 3 chronic kidney disease SNOMED Code(s): 898941844 Code(s): N18.30 - CHRONIC KIDNEY DISEASE, STAGE 3 UNSPECIFIED Status: Chronic Current Visit: Yes Qualifiers: Chronic kidney disease stage 3 subtype: stage 3a (GFR 45-59) Qualified Code(s): N18.31 - Chronic kidney disease, stage 3a (4) 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 SNOMED Code(s): 73532894034988142 Code(s): Z86.73 - PRSNL HX OF TIA (TIA), AND CEREB INFRC W/O RESID DEFICITS Status: Chronic Current Visit: Yes (5) Chronic atrial fibrillation SNOMED Code(s): 689921826 Code(s): I48.2 - CHRONIC ATRIAL FIBRILLATION * DO NOT USE * Status: Chronic Current Visit: No - Problem List Review Problem List Initiated/Reviewed/Updated: Yes - My Orders Last 24 Hours: My Active Orders 01/20/21 17:00 Insert Menjivar Catheter [Insert Urinary Catheter] [OM.PC] Q24H 01/21/21 05:00 BASIC METABOLIC PANEL,BMP [CHEM] Timed INR,PT,PROTHROMBIN TIME [COAG] Timed - Plan Plan:: ASSESSMENT AND PLAN - Acute decompensated congestive heart failure-combined systolic and diastolic with acute respiratory failure with hypoxia. Responding well to bumetanide with accompanying vasopressor support. Still has a fair amount of volume to remove but steadily improving. -Continue phenylephrine to provide enough blood pressure for diuresis -Bumetanide every 12 hours -Continue spironolactone -Follow-up formal echo read -Continue Menjivar catheter -Strict intake and output monitoring -Cardiac monitoring -Continue metoprolol -Wrap lower legs to the thighs -Supplement oxygen as needed -start physical therapy tomorrow Difficult IV access-consider midline PICC in the morning. Hypokalemia-improved with supplementation. Elevated troponin-mild elevation likely related to demand ischemia in the setting of heart failure and mild hypoxia. Chronic atrial fibrillation-rate controlled excellent. INR now supratherapeutic. -Continue metoprolol for rate control -Consider digoxin if additional rate control needed -2.5 mg of vitamin K -Hold warfarin today -INR in the morning -INR goal is 2.5-3.5 Stage III chronic kidney disease-creatinine back to baseline and stable. 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 -Continue medical management Maintenance issues - -DVT prophylaxis-warfarin -GI prophylaxis-PPI -[id number] -Menjivar catheter-placed for strict intake and output monitoring in a critical heart failure patient Disposition -I anticipate discharge home with home care versus subacute rehab after the hospital stay Primary care physician -Dr. Vanda Benitez M.D.
[2021-01-20] MEDS: Bumetanide 2.5 MG/10 ML MDV IVPUSH SCH ×2 (09:29→21:18)
[2021-01-20] MEDS: Acetaminophen 325 MG Tab PO PRN (11:16)
[2021-01-20] MEDS: Magnesium Hydroxide 400 MG/5 ML Susp 30 ML Cup PO PRN (13:54)
[2021-01-20] MEDS: Melatonin 3 MG Tab PO PRN (21:25)
[2021-01-21] MEDS: Metoprolol Succinate 50 MG Tab.ER PO SCH ×2 (09:42→22:22)
[2021-01-21] MEDS: Spironolactone 25 MG Tab PO SCH (09:47)
[2021-01-21] MEDS: levETIRAcetam 250 MG Tab PO SCH ×2 (09:47→17:15)
[2021-01-21] MEDS: Bumetanide 2.5 MG/10 ML MDV IVPUSH SCH ×2 (09:47→22:02)
[2021-01-21] MEDS: Rosuvastatin 10 MG Tab PO SCH (09:47)
[2021-01-21] MEDS: Memantine 10 MG Tab PO SCH ×2 (09:47→22:01)
[2021-01-21] MEDS ORDERED: Bumetanide 2.5 MG/10 ML MDV IVPUSH SCH (11:02)
--- NOTE | 2021-01-21 11:11 | PCM.PN ---
- General Info Date of Service: 01/21/21 Subjective Update: Ms. Kilgore is a 75-year-old woman who was admitted with fluid overload secondary to systolic and diastolic congestive heart failure. She has been treated with phenylephrine because of borderline blood pressures and regular dosing of Bumex. Fairly good diuresis thus far although she continues to experience a large amount of peripheral edema especially in her thighs and buttocks. INR was supratherapeutic yesterday but has normalized following vitamin K yesterday. She denies significant shortness of breath or discomfort when seen this morning. Functional Status: Reports: Tolerating Diet - Review of Systems General: Reports: Weakness. Denies: Fever, Chills Pulmonary: Reports: No Symptoms Cardiovascular: Reports: Edema. Denies: Chest Pain, Palpitations, Dyspnea on Exertion, Orthopnea, PND, Lightheadedness Gastrointestinal: Reports: No Symptoms Musculoskeletal: Reports: No Symptoms - Patient Data Vitals - Most Recent: Last Vital Signs Temp 97.2 F 01/21/21 03:00 Pulse 97 01/21/21 10:00 Resp 30 H 01/21/21 10:00 BP 113/59 L 01/21/21 10:00 Pulse Ox 95 01/21/21 10:00 Weight - Most Recent: 137 lb 14.4 oz I&O - Last 24 Hours: Intake & Output 01/20/21 01/21/21 01/21/21 22:59 06:59 14:59 Intake Total 624 485 Output Total 750 775 Balance -126 -290 Lab Results Last 24 Hours: Laboratory Results - last 24 hr 01/21/21 01/21/21 Range/Units 06:02 06:02 PT 26.3 H (9.5-12.0) sec INR 2.46 H D (0.80-1.20) Sodium 139 L (140-148) mmol/L Potassium 4.5 (3.6-5.2) mmol/L Chloride 100 (100-108) mmol/L Carbon Dioxide 36 H (21-32) mmol/L Anion Gap 7.5 (5.0-14.0) mmol/L BUN 22 H (7-18) mg/dL Creatinine 0.9 (0.6-1.0) mg/dL Est Cr Clr Drug Dosing 39.54 mL/min Estimated GFR (MDRD) > 60 (>60) Glucose 104 (74-106) mg/dL Calcium 8.4 L (8.5-10.1) mg/dL Med Orders - Current: Current Medications Acetaminophen (Acetaminophen 325 Mg Tab) 650 mg PO Q4H PRN PRN Reason: Pain (Mild 1-3)/fever Last Admin: 01/20/21 11:16 Dose: 650 mg Documented by: Albuterol (Albuterol 0.083% 2.5 Mg/3 Ml Neb Soln) 2.5 mg NEB Q4H PRN PRN Reason: Shortness Of Breath/wheezing Bumetanide (Bumetanide 2.5 Mg/10 Ml Mdv) 3 mg IVPUSH Q12H DIA Phenylephrine HCl 40 mg/ (Dextrose/Water) 254 mls @ 15.24 mls/hr IV TITRATE DIA; Protocol Last Admin: 01/21/21 05:53 Dose: 85 mcg/min, 32.385 mls/hr Documented by: Levetiracetam (Levetiracetam 250 Mg Tab) 1,000 mg PO QPM [facility] Last Admin: 01/20/21 16:39 Dose: 1,000 mg Documented by: Levetiracetam (Levetiracetam 250 Mg Tab) 500 mg PO DAILY [facility] Last Admin: 01/21/21 09:47 Dose: 500 mg Documented by: Magnesium Hydroxide (Magnesium Hydroxide 400 Mg/5 Ml Susp 30 Ml Cup) 30 ml PO Q12H PRN PRN Reason: Constipation Last Admin: 01/20/21 13:54 Dose: 30 ml Documented by: Melatonin (Melatonin 3 Mg Tab) 9 mg PO BEDTIME PRN PRN Reason: Sleep Last Admin: 01/20/21 21:25 Dose: 9 mg Documented by: Memantine (Memantine 10 Mg Tab) 5 mg PO BID [facility] Last Admin: 01/21/21 09:47 Dose: 5 mg Documented by: Metoprolol Succinate (Metoprolol Succinate 50 Mg Tab.Er) 50 mg PO BID [facility] Last Admin: 01/21/21 09:42 Dose: Not Given Documented by: Ondansetron HCl (Ondansetron 4 Mg Tab.Dis) 4 mg PO Q6H PRN PRN Reason: Nausea able to take PO Ondansetron HCl (Ondansetron 4 Mg/2 Ml Sdv) 4 mg IV Q6H PRN PRN Reason: Nausea/Vomiting Rosuvastatin Calcium (Rosuvastatin 10 Mg Tab) 10 mg PO DAILY [facility] Last Admin: 01/21/21 09:47 Dose: 10 mg Documented by: Senna/Docusate Sodium (Docusate Sodium/Sennosides 50-8.6 Mg Tab) 1 tab PO BID PRN PRN Reason: Constipation Last Admin: 01/20/21 13:54 Dose: 1 tab Documented by: Sodium Chloride (Sodium Chloride 0.9% 10 Ml Syringe) 10 ml FLUSH ASDIRECTED PRN PRN Reason: Keep Vein Open Spironolactone (Spironolactone 25 Mg Tab) 25 mg PO DAILY [facility] Last Admin: 01/21/21 09:47 Dose: 25 mg Documented by: Warfarin Sodium (Warfarin 2.5 Mg Tab) 2.5 mg PO ONETIME ONE Stop: 01/21/21 11:05 Discontinued Medications Bumetanide (Bumetanide 1 Mg/4 Ml Mdv) 2 mg IVPUSH ONETIME ONE Stop: 01/16/21 22:01 Last Admin: 01/16/21 22:20 Dose: 2 mg Documented by: Bumetanide (Bumetanide 2.5 Mg/10 Ml Mdv) 2 mg IVPUSH Q12H [facility] Last Admin: 01/21/21 09:47 Dose: 2 mg Documented by: Digoxin (Digoxin 500 Mcg/2 Ml Amp) 125 mcg IVPUSH ONETIME ONE Stop: 01/15/21 19:32 Last Admin: 01/15/21 19:49 Dose: 125 mcg Documented by: Digoxin (Digoxin 500 Mcg/2 Ml Amp) 125 mcg IVPUSH ONETIME ONE Stop: 01/16/21 11:01 Last Admin: 01/16/21 11:38 Dose: 125 mcg Documented by: Furosemide (Furosemide 40 Mg/4 Ml Vial) 40 mg IVPUSH ONETIME ONE Stop: 01/15/21 18:17 Last Admin: 01/15/21 19:42 Dose: 40 mg Documented by: Furosemide (Furosemide 40 Mg/4 Ml Vial) 40 mg IVPUSH ONETIME ONE Stop: 01/16/21 15:46 Last Admin: 01/16/21 16:37 Dose: 40 mg Documented by: Phytonadione (Phytonadione 5 Mg Tab) 5 mg PO ONETIME ONE Stop: 01/15/21 18:18 Last Admin: 01/15/21 19:48 Dose: 5 mg Documented by: Phytonadione (Phytonadione 5 Mg Tab) 2.5 mg PO ONETIME ONE Stop: 01/20/21 08:31 Last Admin: 01/20/21 08:43 Dose: 2.5 mg Documented by: Potassium Chloride (Potassium Chloride 20 Meq Tab.Er) 40 meq PO BID DIA Last Admin: 01/19/21 08:44 Dose: 40 meq Documented by: Warfarin Sodium (Warfarin 2.5 Mg Tab) 2.5 mg PO MoWeFr@1300 [facility] Warfarin Sodium (Warfarin 2.5 Mg Tab) 1.25 mg PO SuTuThSa@1300 [facility] Last Admin: 01/15/21 18:10 Dose: 1.25 mg Documented by: Warfarin Sodium (Warfarin 5 Mg Tab) 5 mg PO ONETIME ONE Stop: 01/18/21 13:01 Last Admin: 01/18/21 12:22 Dose: 5 mg Documented by: Warfarin Sodium (Warfarin 5 Mg Tab) 5 mg PO ONETIME ONE Stop: 01/19/21 13:01 Last Admin: 01/19/21 14:37 Dose: 5 mg Documented by: - Exam Quality Assessment: Urine Catheter, DVT Prophylaxis Urinary Catheter Total Time: 4Days 4Hours General: Alert, Oriented, Cooperative, Mild Distress Lungs: Clear to Auscultation, Normal Respiratory Effort, Decreased Breath Sounds Cardiovascular: Regular Rate, Regular Rhythm, No Murmurs GI/Abdominal Exam: Soft, Non-Tender, No Organomegaly, No Distention Extremities: Non-Tender, Pedal Edema - Patient Data Lab Results Last 24 hrs: Laboratory Results - last 24 hr 01/21/21 01/21/21 Range/Units 06:02 06:02 PT 26.3 H (9.5-12.0) sec INR 2.46 H D (0.80-1.20) Sodium 139 L (140-148) mmol/L Potassium 4.5 (3.6-5.2) mmol/L Chloride 100 (100-108) mmol/L Carbon Dioxide 36 H (21-32) mmol/L Anion Gap 7.5 (5.0-14.0) mmol/L BUN 22 H (7-18) mg/dL Creatinine 0.9 (0.6-1.0) mg/dL Est Cr Clr Drug Dosing 39.54 mL/min Estimated GFR (MDRD) > 60 (>60) Glucose 104 (74-106) mg/dL Calcium 8.4 L (8.5-10.1) mg/dL Result Diagrams: 01/17/21 05:30 01/21/21 06:02 Sepsis Event Note - Evaluation Sepsis Screening Result: No Definite Risk - Focused Exam Vital Signs: Vital Signs Temp Pulse Resp BP Pulse Ox 01/21/21 10:00 97 30 H 113/59 L 95 01/21/21 07:36 75 15 103/46 L 92 L 01/21/21 06:30 18 109/55 L 92 L 01/21/21 03:00 97.2 F 17 108/54 L 90 L 01/21/21 00:00 97.6 F 16 116/55 L 93 L - Problem List Review Problem List Initiated/Reviewed/Updated: Yes - My Orders Last 24 Hours: My Active Orders 01/21/21 11:02 Bumetanide [Bumex] 3 mg IVPUSH Q12H 01/21/21 11:04 Warfarin [Coumadin] 2.5 mg PO ONETIME ONE 01/22/21 05:11 INR,PT,PROTHROMBIN TIME [COAG] AM - Plan Plan:: ASSESSMENT AND PLAN Acute decompensated congestive heart failure-combined systolic and diastolic w ith acute respiratory failure with hypoxia. Renal function has remained stable, poor response to diuretic yesterday -Continue phenylephrine to provide enough blood pressure for diuresis -Bumetanide increased to 3 mg every 12 hours -Continue spironolactone -Follow-up formal echo read -Continue Menjivar catheter -Strict intake and output monitoring -Cardiac monitoring -Hold metoprolol -Wrap lower legs to the thighs -Supplement oxygen as needed Difficult IV access-consider midline PICC Hypokalemia-improved with supplementation. Elevated troponin-mild elevation likely related to demand ischemia in the setting of heart failure and mild hypoxia. Chronic atrial fibrillation-rate controlled excellent. INR now therapeutic -Continue metoprolol for rate control -Consider digoxin if additional rate control needed -2.5 mg of warfarin today -INR in the morning -INR goal is 2.5-3.5 Stage III chronic kidney disease-creatinine back to baseline and stable. 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 -Continue medical management Maintenance issues - -DVT prophylaxis-warfarin -GI prophylaxis-PPI -[id number] -Menjivar catheter-placed for strict intake and output monitoring in a critical heart failure patient Disposition -I anticipate discharge home with home care versus subacute rehab after the hospital stay Primary care physician -Dr. Vanda Garcia
[2021-01-21] MEDS ORDERED: Magnesium Sulfate/Water 2 GM in Premix Bag 1 BAG IV ONE (11:30)
[2021-01-21] MEDS ORDERED: Bumetanide 1 MG/4 ML MDV IVPUSH ONE (11:45)
[2021-01-21] MEDS ORDERED: Warfarin 2.5 MG Tab PO ONE (13:00)
[2021-01-22] MEDS: Bumetanide 2.5 MG/10 ML MDV IVPUSH SCH (08:18)
[2021-01-22] MEDS: Memantine 10 MG Tab PO SCH ×2 (09:17→20:44)
[2021-01-22] MEDS: levETIRAcetam 250 MG Tab PO SCH ×2 (09:17→17:32)
[2021-01-22] MEDS: Spironolactone 25 MG Tab PO SCH (09:17)
[2021-01-22] MEDS: Rosuvastatin 10 MG Tab PO SCH (09:17)
[2021-01-22] MEDS: Metoprolol Succinate 50 MG Tab.ER PO SCH ×3 (09:51→12:47)
--- NOTE | 2021-01-22 12:53 | PCM.PN ---
- General Info Date of Service: 01/22/21 Subjective Update: Ms. Kilgore has remained fairly stable since yesterday, although did not experience much of a diuresis despite increased dose of Bumex. She denies significant shortness of breath but does report fairly marked weakness. Functional Status: Reports: Tolerating Diet, Urinating - Review of Systems General: Reports: Weakness, Fatigue. Denies: Fever, Chills Pulmonary: Reports: No Symptoms Cardiovascular: Reports: Edema. Denies: Chest Pain, Palpitations, Dyspnea on Exertion, Orthopnea, PND, Lightheadedness Gastrointestinal: Reports: No Symptoms Musculoskeletal: Reports: No Symptoms - Patient Data Vitals - Most Recent: Last Vital Signs Temp 96.8 F L 01/22/21 11:00 Pulse 131 H 01/22/21 12:47 Resp 39 H 01/22/21 12:00 BP 112/64 01/22/21 12:47 Pulse Ox 93 L 01/22/21 12:00 Weight - Most Recent: 136 lb 14.513 oz I&O - Last 24 Hours: Intake & Output 01/21/21 01/22/21 01/22/21 22:59 06:59 14:59 Intake Total 594 508 60 Output Total 55 350 Balance 4D 158 76 Lab Results Last 24 Hours: Laboratory Results - last 24 hr 01/22/21 01/22/21 01/22/21 Range/Units 05:10 05:10 05:10 WBC 6.7 (4.5-11.0) K/uL RBC 6.07 H (3.30-5.50) M/uL Hgb 16.8 H (12.0-15.0) g/dL Hct 51.1 H (36.0-48.0) % MCV 84 (80-98) fL MCH 28 (27-31) pg MCHC 33 (32-36) % Plt Count 177 (150-400) K/uL Neut % (Auto) 71.6 H (36-66) % Lymph % (Auto) 12.4 L (24-44) % [place] % (Auto) 13.0 H (2-6) % Eos % (Auto) 1.5 L (2-4) % Baso % (Auto) 1.5 H (0-1) % PT 33.0 H (9.5-12.0) sec INR 3.10 H (0.80-1.20) Sodium 135 L (140-148) mmol/L Potassium 4.6 (3.6-5.2) mmol/L Chloride 98 L (100-108) mmol/L Carbon Dioxide 34 H (21-32) mmol/L Anion Gap 7.6 (5.0-14.0) mmol/L BUN 22 H (7-18) mg/dL Creatinine 0.9 (0.6-1.0) mg/dL Est Cr Clr Drug Dosing 39.54 mL/min Estimated GFR (MDRD) > 60 (>60) Glucose 95 (74-106) mg/dL Calcium 8.3 L (8.5-10.1) mg/dL Magnesium 2.6 H (1.8-2.4) mg/dL Med Orders - Current: Current Medications Acetaminophen (Acetaminophen 325 Mg Tab) 650 mg PO Q4H PRN PRN Reason: Pain (Mild 1-3)/fever Last Admin: 01/20/21 11:16 Dose: 650 mg Documented by: Albuterol (Albuterol 0.083% 2.5 Mg/3 Ml Neb Soln) 2.5 mg NEB Q4H PRN PRN Reason: Shortness Of Breath/wheezing Phenylephrine HCl 40 mg/ (Dextrose/Water) 254 mls @ 15.24 mls/hr IV TITRATE DIA; Protocol Last Admin: 01/22/21 07:23 Dose: 85 mcg/min, 32.385 mls/hr Documented by: Levetiracetam (Levetiracetam 250 Mg Tab) 1,000 mg PO QPM DIA Last Admin: 01/21/21 17:15 Dose: 1,000 mg Documented by: Levetiracetam (Levetiracetam 250 Mg Tab) 500 mg PO DAILY [facility] Last Admin: 01/22/21 09:17 Dose: 500 mg Documented by: Magnesium Hydroxide (Magnesium Hydroxide 400 Mg/5 Ml Susp 30 Ml Cup) 30 ml PO Q12H PRN PRN Reason: Constipation Last Admin: 01/20/21 13:54 Dose: 30 ml Documented by: Melatonin (Melatonin 3 Mg Tab) 9 mg PO BEDTIME PRN PRN Reason: Sleep Last Admin: 01/20/21 21:25 Dose: 9 mg Documented by: Memantine (Memantine 10 Mg Tab) 5 mg PO BID [facility] Last Admin: 01/22/21 09:17 Dose: 5 mg Documented by: Metoprolol Succinate (Metoprolol Succinate 25 Mg Tab.Er) 25 mg PO BID [facility] Ondansetron HCl (Ondansetron 4 Mg Tab.Dis) 4 mg PO Q6H PRN PRN Reason: Nausea able to take PO Ondansetron HCl (Ondansetron 4 Mg/2 Ml Sdv) 4 mg IV Q6H PRN PRN Reason: Nausea/Vomiting Rosuvastatin Calcium (Rosuvastatin 10 Mg Tab) 10 mg PO DAILY [facility] Last Admin: 01/22/21 09:17 Dose: 10 mg Documented by: Senna/Docusate Sodium (Docusate Sodium/Sennosides 50-8.6 Mg Tab) 1 tab PO BID PRN PRN Reason: Constipation Last Admin: 01/20/21 13:54 Dose: 1 tab Documented by: Sodium Chloride (Sodium Chloride 0.9% 10 Ml Syringe) 10 ml FLUSH ASDIRECTED PRN PRN Reason: Keep Vein Open Spironolactone (Spironolactone 25 Mg Tab) 25 mg PO DAILY [facility] Last Admin: 01/22/21 09:17 Dose: 25 mg Documented by: Discontinued Medications Bumetanide (Bumetanide 1 Mg/4 Ml Mdv) 2 mg IVPUSH ONETIME ONE Stop: 01/16/21 22:01 Last Admin: 01/16/21 22:20 Dose: 2 mg Documented by: Bumetanide (Bumetanide 2.5 Mg/10 Ml Mdv) 2 mg IVPUSH Q12H [facility] Last Admin: 01/21/21 09:47 Dose: 2 mg Documented by: Bumetanide (Bumetanide 1 Mg/4 Ml Mdv) 1 mg IVPUSH ONETIME ONE Stop: 01/21/21 11:46 Last Admin: 01/21/21 11:51 Dose: 1 mg Documented by: Bumetanide (Bumetanide 2.5 Mg/10 Ml Mdv) 3 mg IVPUSH BID [facility] Last Admin: 01/22/21 08:18 Dose: 3 mg Documented by: Digoxin (Digoxin 500 Mcg/2 Ml Amp) 125 mcg IVPUSH ONETIME ONE Stop: 01/15/21 19:32 Last Admin: 01/15/21 19:49 Dose: 125 mcg Documented by: Digoxin (Digoxin 500 Mcg/2 Ml Amp) 125 mcg IVPUSH ONETIME ONE Stop: 01/16/21 11:01 Last Admin: 01/16/21 11:38 Dose: 125 mcg Documented by: Furosemide (Furosemide 40 Mg/4 Ml Vial) 40 mg IVPUSH ONETIME ONE Stop: 01/15/21 18:17 Last Admin: 01/15/21 19:42 Dose: 40 mg Documented by: Furosemide (Furosemide 40 Mg/4 Ml Vial) 40 mg IVPUSH ONETIME ONE Stop: 01/16/21 15:46 Last Admin: 01/16/21 16:37 Dose: 40 mg Documented by: Magnesium Sulfate 2 gm/ Premix 50 mls @ 25 mls/hr IV ONETIME ONE Stop: 01/21/21 13:29 Last Admin: 01/21/21 11:51 Dose: 25 mls/hr Documented by: Metoprolol Succinate (Metoprolol Succinate 50 Mg Tab.Er) 50 mg PO BID [facility] Last Admin: 01/22/21 12:47 Dose: 50 mg Documented by: Phytonadione (Phytonadione 5 Mg Tab) 5 mg PO ONETIME ONE Stop: 01/15/21 18:18 Last Admin: 01/15/21 19:48 Dose: 5 mg Documented by: Phytonadione (Phytonadione 5 Mg Tab) 2.5 mg PO ONETIME ONE Stop: 01/20/21 08:31 Last Admin: 01/20/21 08:43 Dose: 2.5 mg Documented by: Potassium Chloride (Potassium Chloride 20 Meq Tab.Er) 40 meq PO BID [facility] Last Admin: 01/19/21 08:44 Dose: 40 meq Documented by: Warfarin Sodium (Warfarin 2.5 Mg Tab) 2.5 mg PO MoWeFr@1300 [facility] Warfarin Sodium (Warfarin 2.5 Mg Tab) 1.25 mg PO SuTuThSa@1300 [facility] Last Admin: 01/15/21 18:10 Dose: 1.25 mg Documented by: Warfarin Sodium (Warfarin 5 Mg Tab) 5 mg PO ONETIME ONE Stop: 01/18/21 13:01 Last Admin: 01/18/21 12:22 Dose: 5 mg Documented by: Warfarin Sodium (Warfarin 5 Mg Tab) 5 mg PO ONETIME ONE Stop: 01/19/21 13:01 Last Admin: 01/19/21 14:37 Dose: 5 mg Documented by: Warfarin Sodium (Warfarin 2.5 Mg Tab) 2.5 mg PO ONETIME ONE Stop: 01/21/21 13:01 Last Admin: 01/21/21 12:44 Dose: 2.5 mg Documented by: - Exam Quality Assessment: DVT Prophylaxis Urinary Catheter Total Time: 6Days 8Hours General: Alert, Oriented, Cooperative, No Acute Distress Lungs: Clear to Auscultation, Normal Respiratory Effort, Decreased Breath Sounds Cardiovascular: Regular Rhythm, No Murmurs, Tachycardia GI/Abdominal Exam: Soft, Non-Tender, No Organomegaly, No Distention Back Exam: Normal Inspection, Full Range of Motion Extremities: Pedal Edema. No: Non-Tender - Patient Data Lab Results Last 24 hrs: Laboratory Results - last 24 hr 01/22/21 01/22/21 01/22/21 Range/Units 05:10 05:10 05:10 WBC 6.7 (4.5-11.0) K/uL RBC 6.07 H (3.30-5.50) M/uL Hgb 16.8 H (12.0-15.0) g/dL Hct 51.1 H (36.0-48.0) % MCV 84 (80-98) fL MCH 28 (27-31) pg MCHC 33 (32-36) % Plt Count 177 (150-400) K/uL Neut % (Auto) 71.6 H (36-66) % Lymph % (Auto) 12.4 L (24-44) % [place] % (Auto) 13.0 H (2-6) % Eos % (Auto) 1.5 L (2-4) % Baso % (Auto) 1.5 H (0-1) % PT 33.0 H (9.5-12.0) sec INR 3.10 H (0.80-1.20) Sodium 135 L (140-148) mmol/L Potassium 4.6 (3.6-5.2) mmol/L Chloride 98 L (100-108) mmol/L Carbon Dioxide 34 H (21-32) mmol/L Anion Gap 7.6 (5.0-14.0) mmol/L BUN 22 H (7-18) mg/dL Creatinine 0.9 (0.6-1.0) mg/dL Est Cr Clr Drug Dosing 39.54 mL/min Estimated GFR (MDRD) > 60 (>60) Glucose 95 (74-106) mg/dL Calcium 8.3 L (8.5-10.1) mg/dL Magnesium 2.6 H (1.8-2.4) mg/dL Result Diagrams: 01/22/21 05:10 01/22/21 05:10 Sepsis Event Note - Evaluation Sepsis Screening Result: No Definite Risk - Focused Exam Vital Signs: Vital Signs Temp Pulse Pulse Resp BP BP Pulse Ox 01/22/21 12:47 131 H 112/64 01/22/21 12:00 114 H 39 H 112/64 93 L 01/22/21 11:00 96.8 F L 121 H 18 101/62 90 L 01/22/21 10:00 113 H 22 H 112/52 L 92 L 01/22/21 09:00 108 H 21 H 98/58 L 89 L 01/22/21 08:00 97 15 99/54 L 97 01/22/21 07:54 01/22/21 07:00 96.6 F L 104 H 16 108/50 L 96 01/22/21 06:00 15 102/45 L 96 01/22/21 05:00 15 98/53 L 94 L 01/22/21 04:00 97.5 F 22 H 92/44 L 93 L 01/22/21 03:00 26 H 98/82 94 L 01/22/21 02:00 20 95/54 L 94 L 01/22/21 01:00 16 90/41 L 96 Pulse Ox 01/22/21 12:47 01/22/21 12:00 01/22/21 11:00 01/22/21 10:00 01/22/21 09:00 01/22/21 08:00 01/22/21 07:54 96 01/22/21 07:00 01/22/21 06:00 01/22/21 05:00 01/22/21 04:00 01/22/21 03:00 01/22/21 02:00 01/22/21 01:00 - Problem List Review Problem List Initiated/Reviewed/Updated: Yes - My Orders Last 24 Hours: My Active Orders 01/21/21 16:00 Vital Signs [RC] Q1H 01/22/21 21:00 Metoprolol Succinate [Toprol XL] 25 mg PO BID 01/23/21 05:00 BASIC METABOLIC PANEL,BMP [CHEM] Timed INR,PT,PROTHROMBIN TIME [COAG] Timed - Plan Plan:: ASSESSMENT AND PLAN Acute decompensated congestive heart failure-combined systolic and diastolic with acute respiratory failure with hypoxia. Renal function has remained stable, poor response to diuretic last 2 days -Taper off of phenylephrine -Bumetanide hold after this morning's dose -Continue spironolactone -Formal echo report still pending -Continue Menjivar catheter -Strict intake and output monitoring -Cardiac monitoring -Resume metoprolol 25 mg twice daily -Wrap lower legs to the thighs -Supplement oxygen as needed Difficult IV access-consider midline PICC Hypokalemia-improved with supplementation. Elevated troponin-mild elevation likely related to demand ischemia in the setting of heart failure and mild hypoxia. Chronic atrial fibrillation-rate controlled excellent. INR now therapeutic -Continue metoprolol for rate control -Consider digoxin if additional rate control needed -Hold warfarin today -INR in the morning -INR goal is 2.5-3.5 Stage III chronic kidney disease-creatinine back to baseline and stable. 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 -Continue medical management Maintenance issues - -DVT prophylaxis-warfarin -GI prophylaxis-PPI -[id number] -Menjivar catheter-placed for strict intake and output monitoring in a critical heart failure patient Disposition -I anticipate discharge home with home care versus subacute rehab after the hospital stay Primary care physician -Dr. Vanda Garcia
[2021-01-22] MEDS: Metoprolol Succinate 25 MG Tab.ER PO SCH (20:44)
[2021-01-23] MEDS: Memantine 10 MG Tab PO SCH ×2 (08:33→22:00)
[2021-01-23] MEDS: Rosuvastatin 10 MG Tab PO SCH (08:34)
[2021-01-23] MEDS: levETIRAcetam 250 MG Tab PO SCH ×2 (08:34→17:05)
[2021-01-23] MEDS: Spironolactone 25 MG Tab PO SCH (08:34)
--- NOTE | 2021-01-23 09:48 | PCM.PN ---
- General Info Date of Service: 01/23/21 Subjective Update: Ms. Kilgore is remained fairly stable since yesterday, remains on phenylepherine infusion. Rate control improved now that she is back on metoprolol. Evening dose and this morning's dose of Bumex held because of low blood pressures and increased creatinine. She denies significant shortness of breath but remains very weak. Continues to require supplemental oxygen. - Review of Systems General: Reports: Weakness, Fatigue. Denies: Fever, Chills Pulmonary: Reports: No Symptoms Cardiovascular: Reports: Edema. Denies: Chest Pain, Palpitations, Dyspnea on Exertion, Orthopnea, PND, Lightheadedness Gastrointestinal: Reports: No Symptoms - Patient Data Vitals - Most Recent: Last Vital Signs Temp 97.0 F 01/23/21 07:00 Pulse 98 01/22/21 20:44 Resp 19 01/23/21 09:00 BP 110/59 L 01/23/21 09:00 Pulse Ox 96 01/23/21 09:00 Weight - Most Recent: 145 lb 15.136 oz I&O - Last 24 Hours: Intake & Output 01/22/21 01/23/21 01/23/21 22:59 06:59 14:59 Intake Total 618 343 Output Total 48 300 Balance 13H 43 Lab Results Last 24 Hours: Laboratory Results - last 24 hr 01/23/21 01/23/21 Range/Units 06:00 06:30 PT 32.5 H (9.5-12.0) sec INR 3.05 H (0.80-1.20) Sodium 135 L (140-148) mmol/L Potassium 4.4 (3.6-5.2) mmol/L Chloride 95 L (100-108) mmol/L Carbon Dioxide 36 H (21-32) mmol/L Anion Gap 8.4 (5.0-14.0) mmol/L BUN 24 H (7-18) mg/dL Creatinine 1.1 H (0.6-1.0) mg/dL Est Cr Clr Drug Dosing 32.35 mL/min Estimated GFR (MDRD) 48 L (>60) Glucose 95 (74-106) mg/dL Calcium 8.5 (8.5-10.1) mg/dL Med Orders - Current: Current Medications Acetaminophen (Acetaminophen 325 Mg Tab) 650 mg PO Q4H PRN PRN Reason: Pain (Mild 1-3)/fever Last Admin: 01/20/21 11:16 Dose: 650 mg Documented by: Albuterol (Albuterol 0.083% 2.5 Mg/3 Ml Neb Soln) 2.5 mg NEB Q4H PRN PRN Reason: Shortness Of Breath/wheezing Phenylephrine HCl 40 mg/ (Dextrose/Water) 254 mls @ 15.24 mls/hr IV TITRATE [facility]; Protocol Last Admin: 01/23/21 08:54 Dose: 75 mcg/min, 28.575 mls/hr Documented by: Levetiracetam (Levetiracetam 250 Mg Tab) 1,000 mg PO QPM [facility] Last Admin: 01/22/21 17:32 Dose: 1,000 mg Documented by: Levetiracetam (Levetiracetam 250 Mg Tab) 500 mg PO DAILY [facility] Last Admin: 01/23/21 08:34 Dose: 500 mg Documented by: Magnesium Hydroxide (Magnesium Hydroxide 400 Mg/5 Ml Susp 30 Ml Cup) 30 ml PO Q12H PRN PRN Reason: Constipation Last Admin: 01/20/21 13:54 Dose: 30 ml Documented by: Melatonin (Melatonin 3 Mg Tab) 9 mg PO BEDTIME PRN PRN Reason: Sleep Last Admin: 01/20/21 21:25 Dose: 9 mg Documented by: Memantine (Memantine 10 Mg Tab) 5 mg PO BID [facility] Last Admin: 01/23/21 08:33 Dose: 5 mg Documented by: Metoprolol Succinate (Metoprolol Succinate 25 Mg Tab.Er) 12.5 mg PO BID [facility] Ondansetron HCl (Ondansetron 4 Mg Tab.Dis) 4 mg PO Q6H PRN PRN Reason: Nausea able to take PO Ondansetron HCl (Ondansetron 4 Mg/2 Ml Sdv) 4 mg IV Q6H PRN PRN Reason: Nausea/Vomiting Rosuvastatin Calcium (Rosuvastatin 10 Mg Tab) 10 mg PO DAILY [facility] Last Admin: 01/23/21 08:34 Dose: 10 mg Documented by: Senna/Docusate Sodium (Docusate Sodium/Sennosides 50-8.6 Mg Tab) 1 tab PO BID PRN PRN Reason: Constipation Last Admin: 01/20/21 13:54 Dose: 1 tab Documented by: Sodium Chloride (Sodium Chloride 0.9% 10 Ml Syringe) 10 ml FLUSH ASDIRECTED PRN PRN Reason: Keep Vein Open Spironolactone (Spironolactone 25 Mg Tab) 25 mg PO DAILY [facility] Last Admin: 01/23/21 08:34 Dose: 25 mg Documented by: Warfarin Sodium (Warfarin 1 Mg Tab) 1 mg PO ONETIME ONE Stop: 01/23/21 13:01 Discontinued Medications Bumetanide (Bumetanide 1 Mg/4 Ml Mdv) 2 mg IVPUSH ONETIME ONE Stop: 01/16/21 22:01 Last Admin: 01/16/21 22:20 Dose: 2 mg Documented by: Bumetanide (Bumetanide 2.5 Mg/10 Ml Mdv) 2 mg IVPUSH Q12H [facility] Last Admin: 01/21/21 09:47 Dose: 2 mg Documented by: Bumetanide (Bumetanide 1 Mg/4 Ml Mdv) 1 mg IVPUSH ONETIME ONE Stop: 01/21/21 11:46 Last Admin: 01/21/21 11:51 Dose: 1 mg Documented by: Bumetanide (Bumetanide 2.5 Mg/10 Ml Mdv) 3 mg IVPUSH BID [facility] Last Admin: 01/22/21 08:18 Dose: 3 mg Documented by: Digoxin (Digoxin 500 Mcg/2 Ml Amp) 125 mcg IVPUSH ONETIME ONE Stop: 01/15/21 19:32 Last Admin: 01/15/21 19:49 Dose: 125 mcg Documented by: Digoxin (Digoxin 500 Mcg/2 Ml Amp) 125 mcg IVPUSH ONETIME ONE Stop: 01/16/21 11:01 Last Admin: 01/16/21 11:38 Dose: 125 mcg Documented by: Furosemide (Furosemide 40 Mg/4 Ml Vial) 40 mg IVPUSH ONETIME ONE Stop: 01/15/21 18:17 Last Admin: 01/15/21 19:42 Dose: 40 mg Documented by: Furosemide (Furosemide 40 Mg/4 Ml Vial) 40 mg IVPUSH ONETIME ONE Stop: 01/16/21 15:46 Last Admin: 01/16/21 16:37 Dose: 40 mg Documented by: Magnesium Sulfate 2 gm/ Premix 50 mls @ 25 mls/hr IV ONETIME ONE Stop: 01/21/21 13:29 Last Admin: 01/21/21 11:51 Dose: 25 mls/hr Documented by: Metoprolol Succinate (Metoprolol Succinate 50 Mg Tab.Er) 50 mg PO BID [facility] Last Admin: 01/22/21 12:47 Dose: 50 mg Documented by: Metoprolol Succinate (Metoprolol Succinate 25 Mg Tab.Er) 25 mg PO BID [facility] Last Admin: 01/22/21 20:44 Dose: 25 mg Documented by: Phytonadione (Phytonadione 5 Mg Tab) 5 mg PO ONETIME ONE Stop: 01/15/21 18:18 Last Admin: 01/15/21 19:48 Dose: 5 mg Documented by: Phytonadione (Phytonadione 5 Mg Tab) 2.5 mg PO ONETIME ONE Stop: 01/20/21 08:31 Last Admin: 01/20/21 08:43 Dose: 2.5 mg Documented by: Potassium Chloride (Potassium Chloride 20 Meq Tab.Er) 40 meq PO BID [facility] Last Admin: 01/19/21 08:44 Dose: 40 meq Documented by: Warfarin Sodium (Warfarin 2.5 Mg Tab) 2.5 mg PO MoWeFr@1300 [facility] Warfarin Sodium (Warfarin 2.5 Mg Tab) 1.25 mg PO SuTuThSa@1300 [facility] Last Admin: 01/15/21 18:10 Dose: 1.25 mg Documented by: Warfarin Sodium (Warfarin 5 Mg Tab) 5 mg PO ONETIME ONE Stop: 01/18/21 13:01 Last Admin: 01/18/21 12:22 Dose: 5 mg Documented by: Warfarin Sodium (Warfarin 5 Mg Tab) 5 mg PO ONETIME ONE Stop: 01/19/21 13:01 Last Admin: 01/19/21 14:37 Dose: 5 mg Documented by: Warfarin Sodium (Warfarin 2.5 Mg Tab) 2.5 mg PO ONETIME ONE Stop: 01/21/21 13:01 Last Admin: 01/21/21 12:44 Dose: 2.5 mg Documented by: - Exam Quality Assessment: Supplemental Oxygen, Central Line/PICC, Urine Catheter, DVT Prophylaxis Urinary Catheter Total Time: 6Days 19Hours General: Alert, Oriented, Cooperative, Mild Distress Lungs: Clear to Auscultation, Normal Respiratory Effort Cardiovascular: Regular Rate, Regular Rhythm, No Murmurs GI/Abdominal Exam: Soft, Non-Tender, No Organomegaly, No Distention Extremities: Non-Tender, Pedal Edema - Patient Data Lab Results Last 24 hrs: Laboratory Results - last 24 hr 01/23/21 01/23/21 Range/Units 06:00 06:30 PT 32.5 H (9.5-12.0) sec INR 3.05 H (0.80-1.20) Sodium 135 L (140-148) mmol/L Potassium 4.4 (3.6-5.2) mmol/L Chloride 95 L (100-108) mmol/L Carbon Dioxide 36 H (21-32) mmol/L Anion Gap 8.4 (5.0-14.0) mmol/L BUN 24 H (7-18) mg/dL Creatinine 1.1 H (0.6-1.0) mg/dL Est Cr Clr Drug Dosing 32.35 mL/min Estimated GFR (MDRD) 48 L (>60) Glucose 95 (74-106) mg/dL Calcium 8.5 (8.5-10.1) mg/dL Result Diagrams: 01/22/21 05:10 01/23/21 06:00 Sepsis Event Note - Evaluation Sepsis Screening Result: No Definite Risk - Focused Exam Vital Signs: Vital Signs Temp Resp BP Pulse Ox 01/23/21 09:00 19 110/59 L 96 01/23/21 08:00 25 H 92/62 95 01/23/21 07:00 97.0 F 20 91/53 L 95 01/23/21 06:00 22 H 102/66 91 L 01/23/21 05:00 15 108/66 97 01/23/21 04:00 97.1 F 28 H 103/72 92 L 01/23/21 03:00 14 104/51 L 94 L 01/23/21 02:00 97 F 17 111/57 L 96 01/23/21 01:00 14 103/49 L 97 01/23/21 00:00 97.4 F 16 107/59 L 97 01/22/21 23:00 16 95/50 L 92 L 01/22/21 22:00 21 H 97/51 L 91 L - Problem List Review Problem List Initiated/Reviewed/Updated: Yes - My Orders Last 24 Hours: My Active Orders 01/23/21 09:32 Remove Urinary Catheter [Urinary Catheter Removal] [RC] PER UNIT ROUTINE 01/23/21 13:00 Warfarin [Coumadin] 1 mg PO ONETIME ONE 01/23/21 21:00 Metoprolol Succinate [Toprol XL] 12.5 mg PO BID 01/24/21 05:00 BASIC METABOLIC PANEL,BMP [CHEM] Timed MAGNESIUM [CHEM] Timed 01/24/21 05:11 INR,PT,PROTHROMBIN TIME [COAG] AM - Plan Plan:: ASSESSMENT AND PLAN Acute decompensated congestive heart failure-combined systolic and diastolic with acute respiratory failure with hypoxia. Diuretic therapy has been held over the last 24 hours, peripheral edema does seem to be improved over the past 2 days -Taper off of phenylephrine -Bumetanide hold -Continue spironolactone -Formal echo report still pending -Remove Menjivar catheter -Strict intake and output monitoring -Cardiac monitoring -metoprolol 12.5 mg twice daily -Wrap lower legs to the thighs -Supplement oxygen as needed Difficult IV access-midline PICC Hypokalemia-improved with supplementation. Elevated troponin-mild elevation likely related to demand ischemia in the setting of heart failure and mild hypoxia. Chronic atrial fibrillation-rate controlled excellent. INR now therapeutic -Continue metoprolol for rate control -Consider digoxin if additional rate control needed -Warfarin 1 mg p.o. 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 -Continue medical management Maintenance issues - -DVT prophylaxis-warfarin -GI prophylaxis-PPI -[id number] -Menjivar catheter-placed for strict intake and output monitoring in a critical heart failure patient Disposition -I anticipate discharge home with home care versus subacute rehab after the hospital stay Primary care physician -Dr. Vanda Garcia
[2021-01-23] MEDS: Metoprolol Succinate 25 MG Tab.ER PO SCH ×2 (10:17→22:09)
[2021-01-23] MEDS ORDERED: Digoxin 500 MCG/2 ML Amp IVPUSH ONE (17:54)
[2021-01-23] MEDS: Albuterol 0.083% 2.5 MG/3 ML Neb Soln NEB PRN ×2 (19:30→23:50)
[2021-01-24] MEDS ORDERED: Digoxin 500 MCG/2 ML Amp IVPUSH ONE (00:20)
[2021-01-24] MEDS ORDERED: Bumetanide 2.5 MG/10 ML MDV IVPUSH ONE (00:22)
[2021-01-24] MEDS: Memantine 10 MG Tab PO SCH ×2 (09:49→21:22)
[2021-01-24] MEDS: levETIRAcetam 250 MG Tab PO SCH ×2 (09:50→16:49)
[2021-01-24] MEDS: Metoprolol Succinate 25 MG Tab.ER PO SCH ×2 (09:51→21:23)
[2021-01-24] MEDS: Rosuvastatin 10 MG Tab PO SCH (09:52)
--- NOTE | 2021-01-24 15:39 | PCM.PN ---
- General Info Date of Service: 01/24/21 Subjective Update: Ms. Kilgore has been fairly stable over the past 24 hours, diuresis seems to have stalled. Edema in her lower legs significantly improved but she continues to experience edema involving her thighs buttocks and lower back. Heart rate control has improved with addition of digoxin to lower dose metoprolol. Functional Status: Reports: Tolerating Diet, Urinating - Review of Systems General: Reports: Weakness, Fatigue. Denies: Fever, Chills Pulmonary: Reports: No Symptoms Cardiovascular: Reports: Edema. Denies: Chest Pain, Palpitations, Dyspnea on Exertion, Orthopnea, PND, Lightheadedness Gastrointestinal: Reports: No Symptoms Genitourinary: Reports: No Symptoms - Patient Data Vitals - Most Recent: Last Vital Signs Temp 97.6 F 01/24/21 10:00 Pulse 103 H 01/24/21 11:00 Resp 20 01/24/21 10:05 BP 96/56 L 01/24/21 11:00 Pulse Ox 92 L 01/24/21 11:00 Weight - Most Recent: 137 lb 12.623 oz I&O - Last 24 Hours: Intake & Output 01/24/21 01/24/21 01/24/21 06:59 14:59 22:59 Intake Total 98 Output Total 475 Balance -377 Lab Results Last 24 Hours: Laboratory Results - last 24 hr 01/24/21 01/24/21 Range/Units 05:07 05:07 PT 37.3 H (9.5-12.0) sec INR 3.51 H (0.80-1.20) Sodium 137 L (140-148) mmol/L Potassium 4.3 (3.6-5.2) mmol/L Chloride 94 L (100-108) mmol/L Carbon Dioxide 37 H (21-32) mmol/L Anion Gap 10.3 (5.0-14.0) mmol/L BUN 26 H (7-18) mg/dL Creatinine 1.1 H (0.6-1.0) mg/dL Est Cr Clr Drug Dosing 32.35 mL/min Estimated GFR (MDRD) 48 L (>60) Glucose 95 (74-106) mg/dL Calcium 8.4 L (8.5-10.1) mg/dL Magnesium 2.3 (1.8-2.4) mg/dL Digoxin 1.29 (0.90-2.00) ng/mL Med Orders - Current: Current Medications Acetaminophen (Acetaminophen 325 Mg Tab) 650 mg PO Q4H PRN PRN Reason: Pain (Mild 1-3)/fever Last Admin: 01/20/21 11:16 Dose: 650 mg Documented by: Albuterol (Albuterol 0.083% 2.5 Mg/3 Ml Neb Soln) 2.5 mg NEB Q4H PRN PRN Reason: Shortness Of Breath/wheezing Last Admin: 01/23/21 23:50 Dose: 2.5 mg Documented by: Bumetanide (Bumetanide 1 Mg Tab) 4 mg PO DAILY [facility] Digoxin (Digoxin 125 Mcg Tab) 125 mcg PO DAILY@1300 [facility] Phenylephrine HCl 40 mg/ (Dextrose/Water) 254 mls @ 15.24 mls/hr IV TITRATE [facility]; Protocol Last Titration: 01/24/21 04:20 Dose: 0 mcg/min, 0 mls/hr Documented by: Levetiracetam (Levetiracetam 250 Mg Tab) 1,000 mg PO QPM [facility] Last Admin: 01/23/21 17:05 Dose: 1,000 mg Documented by: Levetiracetam (Levetiracetam 250 Mg Tab) 500 mg PO DAILY [facility] Last Admin: 01/24/21 09:50 Dose: 500 mg Documented by: Magnesium Hydroxide (Magnesium Hydroxide 400 Mg/5 Ml Susp 30 Ml Cup) 30 ml PO Q12H PRN PRN Reason: Constipation Last Admin: 01/20/21 13:54 Dose: 30 ml Documented by: Melatonin (Melatonin 3 Mg Tab) 9 mg PO BEDTIME PRN PRN Reason: Sleep Last Admin: 01/20/21 21:25 Dose: 9 mg Documented by: Memantine (Memantine 10 Mg Tab) 5 mg PO BID [facility] Last Admin: 01/24/21 09:49 Dose: 5 mg Documented by: Metoprolol Succinate (Metoprolol Succinate 25 Mg Tab.Er) 12.5 mg PO BID [facility] Last Admin: 01/24/21 09:51 Dose: 12.5 mg Documented by: Ondansetron HCl (Ondansetron 4 Mg Tab.Dis) 4 mg PO Q6H PRN PRN Reason: Nausea able to take PO Ondansetron HCl (Ondansetron 4 Mg/2 Ml Sdv) 4 mg IV Q6H PRN PRN Reason: Nausea/Vomiting Rosuvastatin Calcium (Rosuvastatin 10 Mg Tab) 10 mg PO DAILY [facility] Last Admin: 01/24/21 09:52 Dose: 10 mg Documented by: Senna/Docusate Sodium (Docusate Sodium/Sennosides 50-8.6 Mg Tab) 1 tab PO BID PRN PRN Reason: Constipation Last Admin: 01/20/21 13:54 Dose: 1 tab Documented by: Sodium Chloride (Sodium Chloride 0.9% 10 Ml Syringe) 10 ml FLUSH ASDIRECTED PRN PRN Reason: Keep Vein Open Discontinued Medications Bumetanide (Bumetanide 1 Mg/4 Ml Mdv) 2 mg IVPUSH ONETIME ONE Stop: 01/16/21 22:01 Last Admin: 01/16/21 22:20 Dose: 2 mg Documented by: Bumetanide (Bumetanide 2.5 Mg/10 Ml Mdv) 2 mg IVPUSH Q12H [facility] Last Admin: 01/21/21 09:47 Dose: 2 mg Documented by: Bumetanide (Bumetanide 1 Mg/4 Ml Mdv) 1 mg IVPUSH ONETIME ONE Stop: 01/21/21 11:46 Last Admin: 01/21/21 11:51 Dose: 1 mg Documented by: Bumetanide (Bumetanide 2.5 Mg/10 Ml Mdv) 3 mg IVPUSH BID [facility] Last Admin: 01/22/21 08:18 Dose: 3 mg Documented by: Bumetanide (Bumetanide 2.5 Mg/10 Ml Mdv) 2 mg IVPUSH ONETIME ONE Stop: 01/24/21 00:23 Last Admin: 01/24/21 01:00 Dose: 2 mg Documented by: Digoxin (Digoxin 500 Mcg/2 Ml Amp) 125 mcg IVPUSH ONETIME ONE Stop: 01/15/21 19:32 Last Admin: 01/15/21 19:49 Dose: 125 mcg Documented by: Digoxin (Digoxin 500 Mcg/2 Ml Amp) 125 mcg IVPUSH ONETIME ONE Stop: 01/16/21 11:01 Last Admin: 01/16/21 11:38 Dose: 125 mcg Documented by: Digoxin (Digoxin 500 Mcg/2 Ml Amp) 250 mcg IVPUSH ONETIME ONE Stop: 01/23/21 17:55 Last Admin: 01/23/21 18:05 Dose: 250 mcg Documented by: Digoxin (Digoxin 500 Mcg/2 Ml Amp) 125 mcg IVPUSH ONETIME ONE Stop: 01/24/21 00:21 Last Admin: 01/24/21 01:00 Dose: 125 mcg Documented by: Furosemide (Furosemide 40 Mg/4 Ml Vial) 40 mg IVPUSH ONETIME ONE Stop: 01/15/21 18:17 Last Admin: 01/15/21 19:42 Dose: 40 mg Documented by: Furosemide (Furosemide 40 Mg/4 Ml Vial) 40 mg IVPUSH ONETIME ONE Stop: 01/16/21 15:46 Last Admin: 01/16/21 16:37 Dose: 40 mg Documented by: Magnesium Sulfate 2 gm/ Premix 50 mls @ 25 mls/hr IV ONETIME ONE Stop: 01/21/21 13:29 Last Admin: 01/21/21 11:51 Dose: 25 mls/hr Documented by: Metoprolol Succinate (Metoprolol Succinate 50 Mg Tab.Er) 50 mg PO BID [facility] Last Admin: 01/22/21 12:47 Dose: 50 mg Documented by: Metoprolol Succinate (Metoprolol Succinate 25 Mg Tab.Er) 25 mg PO BID [facility] Last Admin: 01/23/21 10:17 Dose: 12.5 mg Documented by: Phytonadione (Phytonadione 5 Mg Tab) 5 mg PO ONETIME ONE Stop: 01/15/21 18:18 Last Admin: 01/15/21 19:48 Dose: 5 mg Documented by: Phytonadione (Phytonadione 5 Mg Tab) 2.5 mg PO ONETIME ONE Stop: 01/20/21 08:31 Last Admin: 01/20/21 08:43 Dose: 2.5 mg Documented by: Potassium Chloride (Potassium Chloride 20 Meq Tab.Er) 40 meq PO BID [facility] Last Admin: 01/19/21 08:44 Dose: 40 meq Documented by: Spironolactone (Spironolactone 25 Mg Tab) 25 mg PO DAILY [facility] Last Admin: 01/23/21 08:34 Dose: 25 mg Documented by: Warfarin Sodium (Warfarin 2.5 Mg Tab) 2.5 mg PO MoWeFr@1300 [facility] Warfarin Sodium (Warfarin 2.5 Mg Tab) 1.25 mg PO Suman@1300 [facility] Last Admin: 01/15/21 18:10 Dose: 1.25 mg Documented by: Warfarin Sodium (Warfarin 5 Mg Tab) 5 mg PO ONETIME ONE Stop: 01/18/21 13:01 Last Admin: 01/18/21 12:22 Dose: 5 mg Documented by: Warfarin Sodium (Warfarin 5 Mg Tab) 5 mg PO ONETIME ONE Stop: 01/19/21 13:01 Last Admin: 01/19/21 14:37 Dose: 5 mg Documented by: Warfarin Sodium (Warfarin 2.5 Mg Tab) 2.5 mg PO ONETIME ONE Stop: 01/21/21 13:01 Last Admin: 01/21/21 12:44 Dose: 2.5 mg Documented by: Warfarin Sodium (Warfarin 1 Mg Tab) 1 mg PO ONETIME ONE Stop: 01/23/21 13:01 Last Admin: 01/23/21 12:08 Dose: 1 mg Documented by: - Exam Urinary Catheter Total Time: 6Days 19Hours General: Alert, Oriented, Cooperative, No Acute Distress Lungs: Clear to Auscultation, Normal Respiratory Effort, Decreased Breath Sounds Cardiovascular: Regular Rate, No Murmurs, Irregular Rhythm GI/Abdominal Exam: Soft, Non-Tender, No Organomegaly, No Distention Extremities: Pedal Edema - Patient Data Lab Results Last 24 hrs: Laboratory Results - last 24 hr 01/24/21 01/24/21 Range/Units 05:07 05:07 PT 37.3 H (9.5-12.0) sec INR 3.51 H (0.80-1.20) Sodium 137 L (140-148) mmol/L Potassium 4.3 (3.6-5.2) mmol/L Chloride 94 L (100-108) mmol/L Carbon Dioxide 37 H (21-32) mmol/L Anion Gap 10.3 (5.0-14.0) mmol/L BUN 26 H (7-18) mg/dL Creatinine 1.1 H (0.6-1.0) mg/dL Est Cr Clr Drug Dosing 32.35 mL/min Estimated GFR (MDRD) 48 L (>60) Glucose 95 (74-106) mg/dL Calcium 8.4 L (8.5-10.1) mg/dL Magnesium 2.3 (1.8-2.4) mg/dL Digoxin 1.29 (0.90-2.00) ng/mL Result Diagrams: 01/22/21 05:10 01/24/21 05:07 Sepsis Event Note - Evaluation Sepsis Screening Result: No Definite Risk - Focused Exam Vital Signs: Vital Signs Temp Pulse Pulse Resp BP BP Pulse Ox 01/24/21 11:00 103 H 96/56 L 92 L 01/24/21 10:05 100 20 109/57 L 93 L 01/24/21 10:00 97.6 F 68 109/57 L 93 L 01/24/21 09:51 94 104/57 L 01/24/21 08:00 97.6 F 110 H 20 102/71 93 L 01/24/21 07:00 90 14 86/54 L 94 L 01/24/21 06:00 24 H 95/53 L 95 01/24/21 05:00 23 H 115/58 L 92 L 01/24/21 04:00 16 102/52 L 92 L - Problem List Review Problem List Initiated/Reviewed/Updated: Yes - My Orders Last 24 Hours: My Active Orders 01/23/21 21:00 Metoprolol Succinate [Toprol XL] 12.5 mg PO BID 01/24/21 15:45 Bumetanide [Bumex] 4 mg PO DAILY 01/25/21 05:00 BASIC METABOLIC PANEL,BMP [CHEM] Timed DIGOXIN [CHEM] Timed INR,PT,PROTHROMBIN TIME [COAG] Timed 01/25/21 15:32 Digoxin [Lanoxin] 125 mcg PO DAILY@1300 - Plan Plan:: ASSESSMENT AND PLAN Acute decompensated congestive heart failure-diastolic with acute respiratory failure with hypoxia. -Bumetanide 4 mg daily -Strict intake and output monitoring -Cardiac monitoring -metoprolol 12.5 mg twice daily -Digoxin 0.125 mg p.o. daily -Wrap lower legs to the thighs -Supplement oxygen as needed Difficult IV access-midline PICC Hypokalemia-improved with supplementation. Elevated troponin-mild elevation likely related to demand ischemia in the setting of heart failure and mild hypoxia. Chronic atrial fibrillation-rate controlled excellent. 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 -Continue medical management Maintenance issues - -DVT prophylaxis-warfarin -GI prophylaxis-PPI -[id number] -Menjivar catheter-placed for strict intake and output monitoring in a critical heart failure patient Disposition -I anticipate discharge home with home care versus subacute rehab after the hospital stay Primary care physician -Dr. Vanda Garcia
[2021-01-24] MEDS: Digoxin 125 MCG Tab PO SCH (16:30)
[2021-01-24] MEDS: Bumetanide 1 MG Tab PO SCH (16:30)
[2021-01-25] MEDS: Bumetanide 1 MG Tab PO SCH (09:03)
[2021-01-25] MEDS: Memantine 10 MG Tab PO SCH ×2 (09:03→21:55)
[2021-01-25] MEDS: levETIRAcetam 250 MG Tab PO SCH ×2 (09:04→16:21)
[2021-01-25] MEDS: Rosuvastatin 10 MG Tab PO SCH (09:04)
[2021-01-25] MEDS: Metoprolol Succinate 25 MG Tab.ER PO SCH ×2 (09:04→21:55)
[2021-01-25] MEDS: Albuterol 0.083% 2.5 MG/3 ML Neb Soln NEB PRN (09:34)
[2021-01-25] MEDS: Digoxin 125 MCG Tab PO SCH (12:27)
--- NOTE | 2021-01-25 12:49 | PCM.PN ---
- General Info Date of Service: 01/25/21 Subjective Update: Ms. Kilgore is remained fairly stable over the last 24 hours. Further modest improvement in edema noted in the thighs. Heart rate remains under adequate control and other vital signs have been stable. Functional Status: Reports: Tolerating Diet, Urinating - Review of Systems General: Reports: Weakness, Fatigue. Denies: Fever, Chills Pulmonary: Reports: No Symptoms Cardiovascular: Reports: Edema. Denies: Chest Pain, Palpitations, Dyspnea on Exertion, Orthopnea, PND, Lightheadedness Gastrointestinal: Reports: No Symptoms - Patient Data Vitals - Most Recent: Last Vital Signs Temp 95.9 F L 01/25/21 08:44 Pulse 136 H 01/25/21 12:27 Resp 17 01/25/21 10:00 BP 107/60 01/25/21 10:00 Pulse Ox 95 01/25/21 10:00 Weight - Most Recent: 143 lb 4.807 oz I&O - Last 24 Hours: Intake & Output 01/24/21 01/25/21 01/25/21 22:59 06:59 14:59 Intake Total 320 60 Output Total 900 300 500 Balance -580 -240 -500 Lab Results Last 24 Hours: Laboratory Results - last 24 hr 01/25/21 01/25/21 Range/Units 06:31 06:47 PT 37.2 H (9.5-12.0) sec INR 3.50 H (0.80-1.20) Sodium 139 L (140-148) mmol/L Potassium 4.5 (3.6-5.2) mmol/L Chloride 97 L (100-108) mmol/L Carbon Dioxide 37 H (21-32) mmol/L Anion Gap 9.5 (5.0-14.0) mmol/L BUN 24 H (7-18) mg/dL Creatinine 1.0 (0.6-1.0) mg/dL Est Cr Clr Drug Dosing 35.59 mL/min Estimated GFR (MDRD) 54 L (>60) Glucose 87 (74-106) mg/dL Calcium 8.4 L (8.5-10.1) mg/dL Digoxin 1.00 (0.90-2.00) ng/mL Med Orders - Current: Current Medications Acetaminophen (Acetaminophen 325 Mg Tab) 650 mg PO Q4H PRN PRN Reason: Pain (Mild 1-3)/fever Last Admin: 01/20/21 11:16 Dose: 650 mg Documented by: Albuterol (Albuterol 0.083% 2.5 Mg/3 Ml Neb Soln) 2.5 mg NEB Q4H PRN PRN Reason: Shortness Of Breath/wheezing Last Admin: 01/25/21 09:34 Dose: 2.5 mg Documented by: Bumetanide (Bumetanide 1 Mg Tab) 4 mg PO DAILY [facility] Last Admin: 01/25/21 09:03 Dose: 4 mg Documented by: Digoxin (Digoxin 125 Mcg Tab) 125 mcg PO DAILY@1300 [facility] Last Admin: 01/25/21 12:27 Dose: 125 mcg Documented by: Levetiracetam (Levetiracetam 250 Mg Tab) 1,000 mg PO QPM [facility] Last Admin: 01/24/21 16:49 Dose: 1,000 mg Documented by: Levetiracetam (Levetiracetam 250 Mg Tab) 500 mg PO DAILY [facility] Last Admin: 01/25/21 09:04 Dose: 500 mg Documented by: Magnesium Hydroxide (Magnesium Hydroxide 400 Mg/5 Ml Susp 30 Ml Cup) 30 ml PO Q12H PRN PRN Reason: Constipation Last Admin: 01/20/21 13:54 Dose: 30 ml Documented by: Melatonin (Melatonin 3 Mg Tab) 9 mg PO BEDTIME PRN PRN Reason: Sleep Last Admin: 01/20/21 21:25 Dose: 9 mg Documented by: Memantine (Memantine 10 Mg Tab) 5 mg PO BID [facility] Last Admin: 01/25/21 09:03 Dose: 5 mg Documented by: Metoprolol Succinate (Metoprolol Succinate 25 Mg Tab.Er) 12.5 mg PO BID [facility] Last Admin: 01/25/21 09:04 Dose: 12.5 mg Documented by: Ondansetron HCl (Ondansetron 4 Mg Tab.Dis) 4 mg PO Q6H PRN PRN Reason: Nausea able to take PO Ondansetron HCl (Ondansetron 4 Mg/2 Ml Sdv) 4 mg IV Q6H PRN PRN Reason: Nausea/Vomiting Rosuvastatin Calcium (Rosuvastatin 10 Mg Tab) 10 mg PO DAILY [facility] Last Admin: 01/25/21 09:04 Dose: 10 mg Documented by: Senna/Docusate Sodium (Docusate Sodium/Sennosides 50-8.6 Mg Tab) 1 tab PO BID PRN PRN Reason: Constipation Last Admin: 01/25/21 11:16 Dose: 1 tab Documented by: Sodium Chloride (Sodium Chloride 0.9% 10 Ml Syringe) 10 ml FLUSH ASDIRECTED PRN PRN Reason: Keep Vein Open Discontinued Medications Bumetanide (Bumetanide 1 Mg/4 Ml Mdv) 2 mg IVPUSH ONETIME ONE Stop: 01/16/21 22:01 Last Admin: 01/16/21 22:20 Dose: 2 mg Documented by: Bumetanide (Bumetanide 2.5 Mg/10 Ml Mdv) 2 mg IVPUSH Q12H [facility] Last Admin: 01/21/21 09:47 Dose: 2 mg Documented by: Bumetanide (Bumetanide 1 Mg/4 Ml Mdv) 1 mg IVPUSH ONETIME ONE Stop: 01/21/21 11:46 Last Admin: 01/21/21 11:51 Dose: 1 mg Documented by: Bumetanide (Bumetanide 2.5 Mg/10 Ml Mdv) 3 mg IVPUSH BID [facility] Last Admin: 01/22/21 08:18 Dose: 3 mg Documented by: Bumetanide (Bumetanide 2.5 Mg/10 Ml Mdv) 2 mg IVPUSH ONETIME ONE Stop: 01/24/21 00:23 Last Admin: 01/24/21 01:00 Dose: 2 mg Documented by: Digoxin (Digoxin 500 Mcg/2 Ml Amp) 125 mcg IVPUSH ONETIME ONE Stop: 01/15/21 19:32 Last Admin: 01/15/21 19:49 Dose: 125 mcg Documented by: Digoxin (Digoxin 500 Mcg/2 Ml Amp) 125 mcg IVPUSH ONETIME ONE Stop: 01/16/21 11:01 Last Admin: 01/16/21 11:38 Dose: 125 mcg Documented by: Digoxin (Digoxin 500 Mcg/2 Ml Amp) 250 mcg IVPUSH ONETIME ONE Stop: 01/23/21 17:55 Last Admin: 01/23/21 18:05 Dose: 250 mcg Documented by: Digoxin (Digoxin 500 Mcg/2 Ml Amp) 125 mcg IVPUSH ONETIME ONE Stop: 01/24/21 00:21 Last Admin: 01/24/21 01:00 Dose: 125 mcg Documented by: Furosemide (Furosemide 40 Mg/4 Ml Vial) 40 mg IVPUSH ONETIME ONE Stop: 01/15/21 18:17 Last Admin: 01/15/21 19:42 Dose: 40 mg Documented by: Furosemide (Furosemide 40 Mg/4 Ml Vial) 40 mg IVPUSH ONETIME ONE Stop: 01/16/21 15:46 Last Admin: 01/16/21 16:37 Dose: 40 mg Documented by: Phenylephrine HCl 40 mg/ (Dextrose/Water) 254 mls @ 15.24 mls/hr IV TITRATE [facility]; Protocol Last Titration: 01/24/21 04:20 Dose: 0 mcg/min, 0 mls/hr Documented by: Magnesium Sulfate 2 gm/ Premix 50 mls @ 25 mls/hr IV ONETIME ONE Stop: 01/21/21 13:29 Last Admin: 01/21/21 11:51 Dose: 25 mls/hr Documented by: Metoprolol Succinate (Metoprolol Succinate 50 Mg Tab.Er) 50 mg PO BID [facility] Last Admin: 01/22/21 12:47 Dose: 50 mg Documented by: Metoprolol Succinate (Metoprolol Succinate 25 Mg Tab.Er) 25 mg PO BID [facility] Last Admin: 01/23/21 10:17 Dose: 12.5 mg Documented by: Phytonadione (Phytonadione 5 Mg Tab) 5 mg PO ONETIME ONE Stop: 01/15/21 18:18 Last Admin: 01/15/21 19:48 Dose: 5 mg Documented by: Phytonadione (Phytonadione 5 Mg Tab) 2.5 mg PO ONETIME ONE Stop: 01/20/21 08:31 Last Admin: 01/20/21 08:43 Dose: 2.5 mg Documented by: Potassium Chloride (Potassium Chloride 20 Meq Tab.Er) 40 meq PO BID [facility] Last Admin: 01/19/21 08:44 Dose: 40 meq Documented by: Spironolactone (Spironolactone 25 Mg Tab) 25 mg PO DAILY [facility] Last Admin: 01/23/21 08:34 Dose: 25 mg Documented by: Warfarin Sodium (Warfarin 2.5 Mg Tab) 2.5 mg PO MoWeFr@1300 [facility] Warfarin Sodium (Warfarin 2.5 Mg Tab) 1.25 mg PO SuTuThSa@1300 [facility] Last Admin: 01/15/21 18:10 Dose: 1.25 mg Documented by: Warfarin Sodium (Warfarin 5 Mg Tab) 5 mg PO ONETIME ONE Stop: 01/18/21 13:01 Last Admin: 01/18/21 12:22 Dose: 5 mg Documented by: Warfarin Sodium (Warfarin 5 Mg Tab) 5 mg PO ONETIME ONE Stop: 01/19/21 13:01 Last Admin: 01/19/21 14:37 Dose: 5 mg Documented by: Warfarin Sodium (Warfarin 2.5 Mg Tab) 2.5 mg PO ONETIME ONE Stop: 01/21/21 13:01 Last Admin: 01/21/21 12:44 Dose: 2.5 mg Documented by: Warfarin Sodium (Warfarin 1 Mg Tab) 1 mg PO ONETIME ONE Stop: 01/23/21 13:01 Last Admin: 01/23/21 12:08 Dose: 1 mg Documented by: - Exam Quality Assessment: Supplemental Oxygen, DVT Prophylaxis Urinary Catheter Total Time: 6Days 19Hours General: Alert, Cooperative, Mild Distress Lungs: Clear to Auscultation, Normal Respiratory Effort, Decreased Breath Sounds Cardiovascular: Regular Rate, Regular Rhythm, No Murmurs GI/Abdominal Exam: Soft, Non-Tender, No Organomegaly, No Distention Extremities: Pedal Edema - Patient Data Lab Results Last 24 hrs: Laboratory Results - last 24 hr 01/25/21 01/25/21 Range/Units 06:31 06:47 PT 37.2 H (9.5-12.0) sec INR 3.50 H (0.80-1.20) Sodium 139 L (140-148) mmol/L Potassium 4.5 (3.6-5.2) mmol/L Chloride 97 L (100-108) mmol/L Carbon Dioxide 37 H (21-32) mmol/L Anion Gap 9.5 (5.0-14.0) mmol/L BUN 24 H (7-18) mg/dL Creatinine 1.0 (0.6-1.0) mg/dL Est Cr Clr Drug Dosing 35.59 mL/min Estimated GFR (MDRD) 54 L (>60) Glucose 87 (74-106) mg/dL Calcium 8.4 L (8.5-10.1) mg/dL Digoxin 1.00 (0.90-2.00) ng/mL Result Diagrams: 01/22/21 05:10 01/25/21 06:31 Sepsis Event Note - Evaluation Sepsis Screening Result: No Definite Risk - Focused Exam Vital Signs: Vital Signs Temp Pulse Pulse Resp BP BP Pulse Ox 01/25/21 12:27 136 H 01/25/21 10:00 84 17 107/60 95 01/25/21 09:04 114 H 99/56 L 01/25/21 08:44 95.9 F L 111 H 24 H 100/53 L 96 01/25/21 08:00 98 14 97/49 L 95 01/25/21 06:00 105 H 15 112/65 95 01/25/21 04:00 98.0 F 116 H 14 109/71 96 01/25/21 02:00 104 H 14 94/53 L 95 - Problem List Review Problem List Initiated/Reviewed/Updated: Yes - My Orders Last 24 Hours: My Active Orders 01/24/21 15:45 Bumetanide [Bumex] 4 mg PO DAILY Digoxin [Lanoxin] 125 mcg PO DAILY@1300 01/26/21 05:00 BASIC METABOLIC PANEL,BMP [CHEM] Timed INR,PT,PROTHROMBIN TIME [COAG] Timed - Plan Plan:: ASSESSMENT AND PLAN Acute decompensated congestive heart failure-diastolic with acute respiratory failure with hypoxia. -Bumetanide 4 mg daily -Strict intake and output monitoring -Cardiac monitoring -metoprolol 12.5 mg twice daily -Digoxin 0.125 mg p.o. daily -Wrap lower legs to the thighs -Supplement oxygen as needed Difficult IV access-midline PICC Hypokalemia-improved with supplementation. Elevated troponin-mild elevation likely related to demand ischemia in the setting of heart failure and mild hypoxia. Chronic atrial fibrillation-rate controlled excellent. 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 -Continue medical management Maintenance issues - -DVT prophylaxis-warfarin -GI prophylaxis-PPI -[id number] -Menijvar catheter-placed for strict intake and output monitoring in a critical heart failure patient Disposition -I anticipate discharge home with home care versus subacute rehab after the hospital stay Primary care physician -Dr. Vanda Garcia
[2021-01-25] MEDS: Acetaminophen 325 MG Tab PO PRN (21:56)
[2021-01-25] MEDS: Melatonin 3 MG Tab PO PRN (22:00)
[2021-01-26] MEDS: Rosuvastatin 10 MG Tab PO SCH (10:25)
[2021-01-26] MEDS: acetaZOLAMIDE 250 MG Tab PO SCH ×2 (10:25→21:22)
[2021-01-26] MEDS: Bumetanide 1 MG Tab PO SCH (10:25)
[2021-01-26] MEDS: Memantine 10 MG Tab PO SCH ×2 (10:27→21:22)
[2021-01-26] MEDS: Metoprolol Succinate 25 MG Tab.ER PO SCH ×2 (10:27→21:23)
[2021-01-26] MEDS: levETIRAcetam 250 MG Tab PO SCH ×2 (10:29→17:54)
[2021-01-26] MEDS: Digoxin 125 MCG Tab PO SCH (13:27)
--- NOTE | 2021-01-26 15:23 | PCM.PN ---
- General Info Date of Service: 01/26/21 Subjective Update: Ms. Kilgore has remained fairly stable over the past 24 hours. Heart rate control has remained within desired range. She denies any symptoms of chest pain or shortness of breath at rest. Functional Status: Reports: Tolerating Diet, Urinating - Review of Systems General: Reports: Weakness, Fatigue. Denies: Fever, Chills Pulmonary: Reports: No Symptoms Cardiovascular: Reports: Edema. Denies: Chest Pain, Palpitations, Dyspnea on Exertion, Orthopnea, PND, Lightheadedness Gastrointestinal: Reports: No Symptoms Genitourinary: Reports: No Symptoms - Patient Data Vitals - Most Recent: Last Vital Signs Temp 97.2 F 01/26/21 11:00 Pulse 70 01/26/21 13:27 Resp 14 01/26/21 13:00 BP 97/56 L 01/26/21 13:00 Pulse Ox 97 01/26/21 13:00 Weight - Most Recent: 140 lb 6.951 oz I&O - Last 24 Hours: Intake & Output 01/26/21 01/26/21 01/26/21 06:59 14:59 22:59 Intake Total 60 240 Output Total 100 100 Balance -40 140 Lab Results Last 24 Hours: Laboratory Results - last 24 hr 01/26/21 01/26/21 Range/Units 05:20 05:20 PT 22.1 H (9.5-12.0) sec INR 2.06 H (0.80-1.20) Sodium 139 L (140-148) mmol/L Potassium 5.3 H (3.6-5.2) mmol/L Chloride 100 (100-108) mmol/L Carbon Dioxide 38 H (21-32) mmol/L Anion Gap 6.3 (5.0-14.0) mmol/L BUN 25 H (7-18) mg/dL Creatinine 1.1 H (0.6-1.0) mg/dL Est Cr Clr Drug Dosing 32.35 mL/min Estimated GFR (MDRD) 48 L (>60) Glucose 80 (74-106) mg/dL Calcium 8.3 L (8.5-10.1) mg/dL Med Orders - Current: Current Medications Acetaminophen (Acetaminophen 325 Mg Tab) 650 mg PO Q4H PRN PRN Reason: Pain (Mild 1-3)/fever Last Admin: 01/25/21 21:56 Dose: 650 mg Documented by: Acetazolamide (Acetazolamide 250 Mg Tab) 250 mg PO BID [facility] Stop: 01/26/21 21:01 Last Admin: 01/26/21 10:25 Dose: 250 mg Documented by: Albuterol (Albuterol 0.083% 2.5 Mg/3 Ml Neb Soln) 2.5 mg NEB Q4H PRN PRN Reason: Shortness Of Breath/wheezing Last Admin: 01/25/21 09:34 Dose: 2.5 mg Documented by: Bumetanide (Bumetanide 1 Mg Tab) 4 mg PO DAILY [facility] Last Admin: 01/26/21 10:25 Dose: 4 mg Documented by: Digoxin (Digoxin 125 Mcg Tab) 125 mcg PO DAILY@1300 [facility] Last Admin: 01/26/21 13:27 Dose: 125 mcg Documented by: Levetiracetam (Levetiracetam 250 Mg Tab) 1,000 mg PO QPM [facility] Last Admin: 01/25/21 16:21 Dose: 1,000 mg Documented by: Levetiracetam (Levetiracetam 250 Mg Tab) 500 mg PO DAILY [facility] Last Admin: 01/26/21 10:29 Dose: 500 mg Documented by: Magnesium Hydroxide (Magnesium Hydroxide 400 Mg/5 Ml Susp 30 Ml Cup) 30 ml PO Q12H PRN PRN Reason: Constipation Last Admin: 01/20/21 13:54 Dose: 30 ml Documented by: Melatonin (Melatonin 3 Mg Tab) 9 mg PO BEDTIME PRN PRN Reason: Sleep Last Admin: 01/25/21 22:00 Dose: 9 mg Documented by: Memantine (Memantine 10 Mg Tab) 5 mg PO BID [facility] Last Admin: 01/26/21 10:27 Dose: 5 mg Documented by: Metoprolol Succinate (Metoprolol Succinate 25 Mg Tab.Er) 12.5 mg PO BID [facility] Last Admin: 01/26/21 10:27 Dose: 12.5 mg Documented by: Ondansetron HCl (Ondansetron 4 Mg Tab.Dis) 4 mg PO Q6H PRN PRN Reason: Nausea able to take PO Ondansetron HCl (Ondansetron 4 Mg/2 Ml Sdv) 4 mg IV Q6H PRN PRN Reason: Nausea/Vomiting Rosuvastatin Calcium (Rosuvastatin 10 Mg Tab) 10 mg PO DAILY [facility] Last Admin: 01/26/21 10:25 Dose: 10 mg Documented by: Senna/Docusate Sodium (Docusate Sodium/Sennosides 50-8.6 Mg Tab) 1 tab PO BID PRN PRN Reason: Constipation Last Admin: 01/26/21 10:27 Dose: 1 tab Documented by: Sodium Chloride (Sodium Chloride 0.9% 10 Ml Syringe) 10 ml FLUSH ASDIRECTED PRN PRN Reason: Keep Vein Open Discontinued Medications Bumetanide (Bumetanide 1 Mg/4 Ml Mdv) 2 mg IVPUSH ONETIME ONE Stop: 01/16/21 22:01 Last Admin: 01/16/21 22:20 Dose: 2 mg Documented by: Bumetanide (Bumetanide 2.5 Mg/10 Ml Mdv) 2 mg IVPUSH Q12H [facility] Last Admin: 01/21/21 09:47 Dose: 2 mg Documented by: Bumetanide (Bumetanide 1 Mg/4 Ml Mdv) 1 mg IVPUSH ONETIME ONE Stop: 01/21/21 11:46 Last Admin: 01/21/21 11:51 Dose: 1 mg Documented by: Bumetanide (Bumetanide 2.5 Mg/10 Ml Mdv) 3 mg IVPUSH BID [facility] Last Admin: 01/22/21 08:18 Dose: 3 mg Documented by: Bumetanide (Bumetanide 2.5 Mg/10 Ml Mdv) 2 mg IVPUSH ONETIME ONE Stop: 01/24/21 00:23 Last Admin: 01/24/21 01:00 Dose: 2 mg Documented by: Digoxin (Digoxin 500 Mcg/2 Ml Amp) 125 mcg IVPUSH ONETIME ONE Stop: 01/15/21 19:32 Last Admin: 01/15/21 19:49 Dose: 125 mcg Documented by: Digoxin (Digoxin 500 Mcg/2 Ml Amp) 125 mcg IVPUSH ONETIME ONE Stop: 01/16/21 11:01 Last Admin: 01/16/21 11:38 Dose: 125 mcg Documented by: Digoxin (Digoxin 500 Mcg/2 Ml Amp) 250 mcg IVPUSH ONETIME ONE Stop: 01/23/21 17:55 Last Admin: 01/23/21 18:05 Dose: 250 mcg Documented by: Digoxin (Digoxin 500 Mcg/2 Ml Amp) 125 mcg IVPUSH ONETIME ONE Stop: 01/24/21 00:21 Last Admin: 01/24/21 01:00 Dose: 125 mcg Documented by: Furosemide (Furosemide 40 Mg/4 Ml Vial) 40 mg IVPUSH ONETIME ONE Stop: 01/15/21 18:17 Last Admin: 01/15/21 19:42 Dose: 40 mg Documented by: Furosemide (Furosemide 40 Mg/4 Ml Vial) 40 mg IVPUSH ONETIME ONE Stop: 01/16/21 15:46 Last Admin: 01/16/21 16:37 Dose: 40 mg Documented by: Phenylephrine HCl 40 mg/ (Dextrose/Water) 254 mls @ 15.24 mls/hr IV TITRATE [facility]; Protocol Last Titration: 01/24/21 04:20 Dose: 0 mcg/min, 0 mls/hr Documented by: Magnesium Sulfate 2 gm/ Premix 50 mls @ 25 mls/hr IV ONETIME ONE Stop: 01/21/21 13:29 Last Admin: 01/21/21 11:51 Dose: 25 mls/hr Documented by: Metoprolol Succinate (Metoprolol Succinate 50 Mg Tab.Er) 50 mg PO BID [facility] Last Admin: 01/22/21 12:47 Dose: 50 mg Documented by: Metoprolol Succinate (Metoprolol Succinate 25 Mg Tab.Er) 25 mg PO BID [facility] Last Admin: 01/23/21 10:17 Dose: 12.5 mg Documented by: Phytonadione (Phytonadione 5 Mg Tab) 5 mg PO ONETIME ONE Stop: 01/15/21 18:18 Last Admin: 01/15/21 19:48 Dose: 5 mg Documented by: Phytonadione (Phytonadione 5 Mg Tab) 2.5 mg PO ONETIME ONE Stop: 01/20/21 08:31 Last Admin: 01/20/21 08:43 Dose: 2.5 mg Documented by: Potassium Chloride (Potassium Chloride 20 Meq Tab.Er) 40 meq PO BID [facility] Last Admin: 01/19/21 08:44 Dose: 40 meq Documented by: Spironolactone (Spironolactone 25 Mg Tab) 25 mg PO DAILY [facility] Last Admin: 01/23/21 08:34 Dose: 25 mg Documented by: Warfarin Sodium (Warfarin 2.5 Mg Tab) 2.5 mg PO MoWeFr@1300 [facility] Warfarin Sodium (Warfarin 2.5 Mg Tab) 1.25 mg PO SuTuThSa@1300 [facility] Last Admin: 01/15/21 18:10 Dose: 1.25 mg Documented by: Warfarin Sodium (Warfarin 5 Mg Tab) 5 mg PO ONETIME ONE Stop: 01/18/21 13:01 Last Admin: 01/18/21 12:22 Dose: 5 mg Documented by: Warfarin Sodium (Warfarin 5 Mg Tab) 5 mg PO ONETIME ONE Stop: 01/19/21 13:01 Last Admin: 01/19/21 14:37 Dose: 5 mg Documented by: Warfarin Sodium (Warfarin 2.5 Mg Tab) 2.5 mg PO ONETIME ONE Stop: 01/21/21 13:01 Last Admin: 01/21/21 12:44 Dose: 2.5 mg Documented by: Warfarin Sodium (Warfarin 1 Mg Tab) 1 mg PO ONETIME ONE Stop: 01/23/21 13:01 Last Admin: 01/23/21 12:08 Dose: 1 mg Documented by: Warfarin Sodium (Warfarin 1 Mg Tab) 1 mg PO ONETIME ONE Stop: 01/26/21 10:01 Last Admin: 01/26/21 10:31 Dose: 1 mg Documented by: - Exam Quality Assessment: DVT Prophylaxis Urinary Catheter Total Time: 6Days 19Hours General: Alert, Cooperative, No Acute Distress Lungs: Clear to Auscultation, Normal Respiratory Effort Cardiovascular: Regular Rate, Regular Rhythm, No Murmurs GI/Abdominal Exam: Soft, Non-Tender, No Organomegaly, No Distention Extremities: Non-Tender, Pedal Edema - Patient Data Lab Results Last 24 hrs: Laboratory Results - last 24 hr 01/26/21 01/26/21 Range/Units 05:20 05:20 PT 22.1 H (9.5-12.0) sec INR 2.06 H (0.80-1.20) Sodium 139 L (140-148) mmol/L Potassium 5.3 H (3.6-5.2) mmol/L Chloride 100 (100-108) mmol/L Carbon Dioxide 38 H (21-32) mmol/L Anion Gap 6.3 (5.0-14.0) mmol/L BUN 25 H (7-18) mg/dL Creatinine 1.1 H (0.6-1.0) mg/dL Est Cr Clr Drug Dosing 32.35 mL/min Estimated GFR (MDRD) 48 L (>60) Glucose 80 (74-106) mg/dL Calcium 8.3 L (8.5-10.1) mg/dL Result Diagrams: 01/22/21 05:10 01/26/21 05:20 Sepsis Event Note - Evaluation Sepsis Screening Result: No Definite Risk - Focused Exam Vital Signs: Vital Signs Temp Pulse Pulse Resp BP BP Pulse Ox 01/26/21 13:27 70 01/26/21 13:00 78 14 97/56 L 97 01/26/21 11:00 97.2 F 77 16 96/54 L 97 01/26/21 10:27 80 102/59 L 01/26/21 09:00 90 17 107/50 L 97 01/26/21 07:00 97.1 F 84 21 H 102/42 L 96 01/26/21 06:00 75 14 86/41 L 97 01/26/21 03:47 97.3 F 88 15 101/50 L 95 - Problem List Review Problem List Initiated/Reviewed/Updated: Yes - My Orders Last 24 Hours: My Active Orders 01/26/21 09:00 acetaZOLAMIDE [Diamox] 250 mg PO BID 01/27/21 05:00 BASIC METABOLIC PANEL,BMP [CHEM] Timed DIGOXIN [CHEM] Timed 01/27/21 05:11 INR,PT,PROTHROMBIN TIME [COAG] AM - Plan Plan:: ASSESSMENT AND PLAN Acute decompensated congestive heart failure-diastolic with acute respiratory failure with hypoxia. -Bumetanide 4 mg daily -Strict intake and output monitoring -Cardiac monitoring -metoprolol 12.5 mg twice daily -Digoxin 0.125 mg p.o. daily -Wrap lower legs to the thighs -Supplement oxygen as needed Difficult IV access-midline PICC Hypokalemia-improved with supplementation. Elevated troponin-mild elevation likely related to demand ischemia in the setting of heart failure and mild hypoxia. Chronic atrial fibrillation-rate controlled excellent. 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 -Continue medical management Maintenance issues - -DVT prophylaxis-warfarin -GI prophylaxis-PPI -[id number] -Menjivar catheter-placed for strict intake and output monitoring in a critical heart failure patient Disposition -I anticipate discharge home with home care versus subacute rehab after the hospital stay Primary care physician -Dr. Vanda Garcia
[2021-01-27] MEDS: Acetaminophen 325 MG Tab PO PRN ×2 (04:33→21:19)
[2021-01-27] MEDS: Albuterol 0.083% 2.5 MG/3 ML Neb Soln NEB PRN (09:00)
[2021-01-27] MEDS: Rosuvastatin 10 MG Tab PO SCH (09:09)
[2021-01-27] MEDS: Metoprolol Succinate 25 MG Tab.ER PO SCH ×2 (09:09→21:20)
[2021-01-27] MEDS: Memantine 10 MG Tab PO SCH ×2 (09:10→21:20)
[2021-01-27] MEDS: Bumetanide 1 MG Tab PO SCH (09:10)
[2021-01-27] MEDS: levETIRAcetam 250 MG Tab PO SCH ×2 (09:11→18:55)
--- NOTE | 2021-01-27 12:48 | PCM.PN ---
- General Info Date of Service: 01/27/21 Subjective Update: Ms. Kilgore has been stable since yesterday with adequate pressures. She denies significant shortness of breath and has remained afebrile. Functional Status: Reports: Urinating - Review of Systems General: Reports: Weakness, Fatigue. Denies: Fever, Chills Pulmonary: Reports: No Symptoms Cardiovascular: Reports: Edema. Denies: Chest Pain, Palpitations, Dyspnea on Exertion, Orthopnea, PND, Lightheadedness Gastrointestinal: Reports: No Symptoms Genitourinary: Reports: No Symptoms - Patient Data Vitals - Most Recent: Last Vital Signs Temp 97.6 F 01/27/21 08:00 Pulse 89 01/27/21 12:00 Resp 23 H 01/27/21 12:00 BP 102/64 01/27/21 12:00 Pulse Ox 94 L 01/27/21 12:00 Weight - Most Recent: 134 lb 14.766 oz I&O - Last 24 Hours: Intake & Output 01/26/21 01/27/21 01/27/21 22:59 06:59 14:59 Intake Total 360 120 Output Total 600 150 400 Balance -240 -30 -400 Lab Results Last 24 Hours: Laboratory Results - last 24 hr 01/27/21 01/27/21 Range/Units 04:30 04:30 PT 20.9 H (9.5-12.0) sec INR 1.94 H (0.80-1.20) Sodium 142 (140-148) mmol/L Potassium 3.7 (3.6-5.2) mmol/L Chloride 102 (100-108) mmol/L Carbon Dioxide 36 H (21-32) mmol/L Anion Gap 7.7 (5.0-14.0) mmol/L BUN 24 H (7-18) mg/dL Creatinine 1.1 H (0.6-1.0) mg/dL Est Cr Clr Drug Dosing 32.35 mL/min Estimated GFR (MDRD) 48 L (>60) Glucose 89 (74-106) mg/dL Calcium 8.6 (8.5-10.1) mg/dL Digoxin 0.88 L (0.90-2.00) ng/mL Med Orders - Current: Current Medications Acetaminophen (Acetaminophen 325 Mg Tab) 650 mg PO Q4H PRN PRN Reason: Pain (Mild 1-3)/fever Last Admin: 01/27/21 04:33 Dose: 650 mg Documented by: Albuterol (Albuterol 0.083% 2.5 Mg/3 Ml Neb Soln) 2.5 mg NEB Q4H PRN PRN Reason: Shortness Of Breath/wheezing Last Admin: 01/27/21 09:00 Dose: 2.5 mg Documented by: Bumetanide (Bumetanide 1 Mg Tab) 4 mg PO DAILY [facility] Last Admin: 01/27/21 09:10 Dose: 4 mg Documented by: Digoxin (Digoxin 125 Mcg Tab) 125 mcg PO DAILY@1300 [facility] Last Admin: 01/26/21 13:27 Dose: 125 mcg Documented by: Levetiracetam (Levetiracetam 250 Mg Tab) 1,000 mg PO QPM [facility] Last Admin: 01/26/21 17:54 Dose: 1,000 mg Documented by: Levetiracetam (Levetiracetam 250 Mg Tab) 500 mg PO DAILY [facility] Last Admin: 01/27/21 09:11 Dose: 500 mg Documented by: Magnesium Hydroxide (Magnesium Hydroxide 400 Mg/5 Ml Susp 30 Ml Cup) 30 ml PO Q12H PRN PRN Reason: Constipation Last Admin: 01/20/21 13:54 Dose: 30 ml Documented by: Melatonin (Melatonin 3 Mg Tab) 9 mg PO BEDTIME PRN PRN Reason: Sleep Last Admin: 01/25/21 22:00 Dose: 9 mg Documented by: Memantine (Memantine 10 Mg Tab) 5 mg PO BID [facility] Last Admin: 01/27/21 09:10 Dose: 5 mg Documented by: Metoprolol Succinate (Metoprolol Succinate 25 Mg Tab.Er) 12.5 mg PO BID [facility] Last Admin: 01/27/21 09:09 Dose: 12.5 mg Documented by: Ondansetron HCl (Ondansetron 4 Mg Tab.Dis) 4 mg PO Q6H PRN PRN Reason: Nausea able to take PO Ondansetron HCl (Ondansetron 4 Mg/2 Ml Sdv) 4 mg IV Q6H PRN PRN Reason: Nausea/Vomiting Rosuvastatin Calcium (Rosuvastatin 10 Mg Tab) 10 mg PO DAILY [facility] Last Admin: 01/27/21 09:09 Dose: 10 mg Documented by: Senna/Docusate Sodium (Docusate Sodium/Sennosides 50-8.6 Mg Tab) 1 tab PO BID PRN PRN Reason: Constipation Last Admin: 01/26/21 10:27 Dose: 1 tab Documented by: Sodium Chloride (Sodium Chloride 0.9% 10 Ml Syringe) 10 ml FLUSH ASDIRECTED PRN PRN Reason: Keep Vein Open Warfarin Sodium (Warfarin 1 Mg Tab) 1 mg PO ONETIME ONE Stop: 01/27/21 13:01 Discontinued Medications Acetazolamide (Acetazolamide 250 Mg Tab) 250 mg PO BID [facility] Stop: 01/26/21 21:01 Last Admin: 01/26/21 21:22 Dose: 250 mg Documented by: Bumetanide (Bumetanide 1 Mg/4 Ml Mdv) 2 mg IVPUSH ONETIME ONE Stop: 01/16/21 22:01 Last Admin: 01/16/21 22:20 Dose: 2 mg Documented by: Bumetanide (Bumetanide 2.5 Mg/10 Ml Mdv) 2 mg IVPUSH Q12H [facility] Last Admin: 01/21/21 09:47 Dose: 2 mg Documented by: Bumetanide (Bumetanide 1 Mg/4 Ml Mdv) 1 mg IVPUSH ONETIME ONE Stop: 01/21/21 11:46 Last Admin: 01/21/21 11:51 Dose: 1 mg Documented by: Bumetanide (Bumetanide 2.5 Mg/10 Ml Mdv) 3 mg IVPUSH BID [facility] Last Admin: 01/22/21 08:18 Dose: 3 mg Documented by: Bumetanide (Bumetanide 2.5 Mg/10 Ml Mdv) 2 mg IVPUSH ONETIME ONE Stop: 01/24/21 00:23 Last Admin: 01/24/21 01:00 Dose: 2 mg Documented by: Digoxin (Digoxin 500 Mcg/2 Ml Amp) 125 mcg IVPUSH ONETIME ONE Stop: 01/15/21 19:32 Last Admin: 01/15/21 19:49 Dose: 125 mcg Documented by: Digoxin (Digoxin 500 Mcg/2 Ml Amp) 125 mcg IVPUSH ONETIME ONE Stop: 01/16/21 11:01 Last Admin: 01/16/21 11:38 Dose: 125 mcg Documented by: Digoxin (Digoxin 500 Mcg/2 Ml Amp) 250 mcg IVPUSH ONETIME ONE Stop: 01/23/21 17:55 Last Admin: 01/23/21 18:05 Dose: 250 mcg Documented by: Digoxin (Digoxin 500 Mcg/2 Ml Amp) 125 mcg IVPUSH ONETIME ONE Stop: 01/24/21 00:21 Last Admin: 01/24/21 01:00 Dose: 125 mcg Documented by: Furosemide (Furosemide 40 Mg/4 Ml Vial) 40 mg IVPUSH ONETIME ONE Stop: 01/15/21 18:17 Last Admin: 01/15/21 19:42 Dose: 40 mg Documented by: Furosemide (Furosemide 40 Mg/4 Ml Vial) 40 mg IVPUSH ONETIME ONE Stop: 01/16/21 15:46 Last Admin: 01/16/21 16:37 Dose: 40 mg Documented by: Phenylephrine HCl 40 mg/ (Dextrose/Water) 254 mls @ 15.24 mls/hr IV TITRATE [facility]; Protocol Last Titration: 01/24/21 04:20 Dose: 0 mcg/min, 0 mls/hr Documented by: Magnesium Sulfate 2 gm/ Premix 50 mls @ 25 mls/hr IV ONETIME ONE Stop: 01/21/21 13:29 Last Admin: 01/21/21 11:51 Dose: 25 mls/hr Documented by: Metoprolol Succinate (Metoprolol Succinate 50 Mg Tab.Er) 50 mg PO BID [facility] Last Admin: 01/22/21 12:47 Dose: 50 mg Documented by: Metoprolol Succinate (Metoprolol Succinate 25 Mg Tab.Er) 25 mg PO BID [facility] Last Admin: 01/23/21 10:17 Dose: 12.5 mg Documented by: Phytonadione (Phytonadione 5 Mg Tab) 5 mg PO ONETIME ONE Stop: 01/15/21 18:18 Last Admin: 01/15/21 19:48 Dose: 5 mg Documented by: Phytonadione (Phytonadione 5 Mg Tab) 2.5 mg PO ONETIME ONE Stop: 01/20/21 08:31 Last Admin: 01/20/21 08:43 Dose: 2.5 mg Documented by: Potassium Chloride (Potassium Chloride 20 Meq Tab.Er) 40 meq PO BID [facility] Last Admin: 01/19/21 08:44 Dose: 40 meq Documented by: Spironolactone (Spironolactone 25 Mg Tab) 25 mg PO DAILY [facility] Last Admin: 01/23/21 08:34 Dose: 25 mg Documented by: Warfarin Sodium (Warfarin 2.5 Mg Tab) 2.5 mg PO MoWeFr@1300 [facility] Warfarin Sodium (Warfarin 2.5 Mg Tab) 1.25 mg PO SuTuThSa@1300 [facility] Last Admin: 01/15/21 18:10 Dose: 1.25 mg Documented by: Warfarin Sodium (Warfarin 5 Mg Tab) 5 mg PO ONETIME ONE Stop: 01/18/21 13:01 Last Admin: 01/18/21 12:22 Dose: 5 mg Documented by: Warfarin Sodium (Warfarin 5 Mg Tab) 5 mg PO ONETIME ONE Stop: 01/19/21 13:01 Last Admin: 01/19/21 14:37 Dose: 5 mg Documented by: Warfarin Sodium (Warfarin 2.5 Mg Tab) 2.5 mg PO ONETIME ONE Stop: 01/21/21 13:01 Last Admin: 01/21/21 12:44 Dose: 2.5 mg Documented by: Warfarin Sodium (Warfarin 1 Mg Tab) 1 mg PO ONETIME ONE Stop: 01/23/21 13:01 Last Admin: 01/23/21 12:08 Dose: 1 mg Documented by: Warfarin Sodium (Warfarin 1 Mg Tab) 1 mg PO ONETIME ONE Stop: 01/26/21 10:01 Last Admin: 01/26/21 10:31 Dose: 1 mg Documented by: - Exam Quality Assessment: Supplemental Oxygen, DVT Prophylaxis Urinary Catheter Total Time: 6Days 19Hours General: Alert, Oriented, Cooperative, No Acute Distress Lungs: Clear to Auscultation, Normal Respiratory Effort Cardiovascular: Regular Rate, Regular Rhythm, Murmurs GI/Abdominal Exam: Soft, Non-Tender, No Organomegaly, No Distention Extremities: Non-Tender, No Pedal Edema - Patient Data Lab Results Last 24 hrs: Laboratory Results - last 24 hr 01/27/21 01/27/21 Range/Units 04:30 04:30 PT 20.9 H (9.5-12.0) sec INR 1.94 H (0.80-1.20) Sodium 142 (140-148) mmol/L Potassium 3.7 (3.6-5.2) mmol/L Chloride 102 (100-108) mmol/L Carbon Dioxide 36 H (21-32) mmol/L Anion Gap 7.7 (5.0-14.0) mmol/L BUN 24 H (7-18) mg/dL Creatinine 1.1 H (0.6-1.0) mg/dL Est Cr Clr Drug Dosing 32.35 mL/min Estimated GFR (MDRD) 48 L (>60) Glucose 89 (74-106) mg/dL Calcium 8.6 (8.5-10.1) mg/dL Digoxin 0.88 L (0.90-2.00) ng/mL Result Diagrams: 01/22/21 05:10 01/27/21 04:30 Sepsis Event Note - Evaluation Sepsis Screening Result: No Definite Risk - Focused Exam Vital Signs: Vital Signs Temp Pulse Pulse Resp BP BP Pulse Ox 01/27/21 12:00 89 23 H 102/64 94 L 01/27/21 10:00 79 15 96/55 L 89 L 01/27/21 09:09 85 99/59 L 01/27/21 08:00 97.6 F 77 11 L 98/46 L 94 L 01/27/21 06:00 76 13 87/48 L 95 01/27/21 04:00 96.9 F 93 20 91/47 L 95 01/27/21 02:00 97 21 H 96/45 L 93 L - Problem List Review Problem List Initiated/Reviewed/Updated: Yes - My Orders Last 24 Hours: My Active Orders 01/27/21 12:36 Warfarin [Coumadin] 1 mg PO ONETIME ONE 01/27/21 12:37 Patient Status [ADT] Routine - Plan Plan:: ASSESSMENT AND PLAN Acute decompensated congestive heart failure-diastolic with acute respiratory failure with hypoxia. -Bumetanide 4 mg daily -metoprolol 12.5 mg twice daily -Digoxin 0.125 mg p.o. daily -Wrap lower legs to the thighs -Supplement oxygen as needed Difficult IV access-midline PICC Hypokalemia-improved with supplementation. Elevated troponin-mild elevation likely related to demand ischemia in the setting of heart failure and mild hypoxia. Chronic atrial fibrillation-rate controlled excellent. 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 -Continue medical management Maintenance issues - -DVT prophylaxis-warfarin -GI prophylaxis-PPI -[id number] -Menjivar catheter-placed for strict intake and output monitoring in a critical heart failure patient Disposition -I anticipate discharge home with home care versus subacute rehab after the hospital stay Primary care physician -Dr. Vanda Garcia
--- NOTE | 2021-01-27 13:16 | PCM.DCSUM1 ---
Discharge Summary - Hospital Course Brief History: Ms. Kilgore is a 75-year-old woman who was admitted as a direct admission from the clinic with recent 20 pound weight gain, edema, orthopnea, and dyspnea, secondary to congestive heart failure. - Discharge Data Discharge Date: 01/27/21 Discharge Disposition: DC/Tfer to SNF 03 Condition: Fair - Referral to Home Health Primary Care Physician: Vanda Garcia MD - Discharge Diagnosis/Problem(s) (1) Acute decompensated heart failure SNOMED Code(s): 09610295, 002961004 ICD Code: I50.9 - HEART FAILURE, UNSPECIFIED Status: Acute Current Visit: Yes Problem Details: Combined systolic and diastolic with severe tricuspid regurgitation (2) Acute respiratory failure with hypoxia SNOMED Code(s): 83609771, 146677403 ICD Code: J96.01 - ACUTE RESPIRATORY FAILURE WITH HYPOXIA Status: Acute Current Visit: Yes (3) 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 SNOMED Code(s): 13836019666971190 ICD Code: Z86.73 - PRSNL HX OF TIA (TIA), AND CEREB INFRC W/O RESID DEFICITS Status: Chronic Current Visit: Yes (4) Stage 3 chronic kidney disease SNOMED Code(s): 745755374 ICD Code: N18.30 - CHRONIC KIDNEY DISEASE, STAGE 3 UNSPECIFIED Status: Chronic Current Visit: Yes Qualifiers: Chronic kidney disease stage 3 subtype: stage 3a (GFR 45-59) Qualified Code(s): N18.31 - Chronic kidney disease, stage 3a (5) Chronic atrial fibrillation SNOMED Code(s): 905369251 ICD Code: I48.2 - CHRONIC ATRIAL FIBRILLATION * DO NOT USE * Status: Chronic Current Visit: No (6) Chronic combined systolic (congestive) and diastolic (congestive) heart failure SNOMED Code(s): 163522040192812, 451769168827566 ICD Code: I50.42 - CHRONIC COMBINED SYSTOLIC AND DIASTOLIC HRT FAIL Status: Chronic Current Visit: No (7) On Coumadin for atrial fibrillation SNOMED Code(s): 50125371 ICD Code: I48.91 - UNSPECIFIED ATRIAL FIBRILLATION; 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 OT Reason for Consult: Other (Type Response) Special Instructions: right arm compression glove and sleeve This query below is only for informational purposes and is not editable. Admission Diagnosis/Problem: CHF, Congestive heart failure 01/21/21 07:00 PT Evaluation and Treatment [CONS] Routine Please Evaluate and Treat. PT Reason for Consult: Strengthening This query below is only for informational purposes and is not editable. Admission Diagnosis/Problem: CHF, Congestive heart failure Hospital Course: Ms. Kilgore presented as a direct admission from the clinic after seeing her primary care physician Dr. Vanda Garcia. She reports a weight gain of more than 20 pounds over the last few weeks. She has had increasing fatigue and dyspnea with any exertion. She has had increased swelling of her right arm as well as both legs all the way up to her waist and including her lower back. She has progressive orthopnea but does not have any PND. She has not had chest pain or chest tightness. No obvious trigger to have started the progression of the swelling. She was on an increased dose of furosemide for a few days but did not notice any change in urine output or weight or symptoms. She does have a loose cough but has not produced sputum. No fevers or chills. No abdominal pain or nausea. No change in bowel or bladder habits. No obvious sick contacts. She does note that she has had several medications discontinued recently because of hypotension. Her last echocardiogram was performed about 1 year ago and showed an ejection fraction of 40 to 45% with severe tricuspid regurgitation and severe pulmonary hypertension with pressures in the 80 to 90 mmHg range. On admission she was given diuretic therapy but because of hypotension did not really respond with good diuresis. She was started on a continuous infusion of phenylephrine and continued with IV diuretic therapy and initially did experience good diuresis with improvement in peripheral edema. Renal function remained stable. On admission she was also noted to have elevated troponin level which was felt to be secondary to demand ischemia in the setting of congestive heart failure exacerbation and underlying chronic kidney disease stage III. There are a few days with the phenylephrine and IV diuretic therapy, diuresis stalled. Bumex dose was increased to 3 mg twice daily and unfortunately did not result in further diuresis. Renal function transiently worsened at this point and diuretic therapy was held for 24 hours. She had ongoing difficulty with hypotension, metoprolol dose was initially held and then decreased to 12.5 mg twice daily. She was finally able to be tapered off of the phenylephrine infusion. She intermittently had difficulty with rapid heart rate with her atrial fibrillation. She was started on digoxin and placed on oral dose at 0.125 mg daily with good control of heart rate. On admission she was on warfarin because of her underlying atrial fibrillation and INR was significantly elevated, she did receive a dose of vitamin K with improvement in INR level. She was started back on warfarin and again level jumped very high and she was given a second dose of vitamin K. At the time of discharge she will be on 1 mg of warfarin daily and we will obtain follow-up INR in a few days. She was kept on a low-sodium diet throughout hospital stay. There was fairly good improvement in edema but it did not totally resolved and at the time of d ischarge she does have some residual edema in both thighs and buttocks as well as the right upper extremity. She will be kept on increased dose of diuretic therapy with Bumex 4 mg daily. She was also noted to be hypoxic during hospital stay and will require oxygen 2 L/min via nasal cannula while at the halfway. She remains very weak and does have residual weakness from previous CVA. She will be discharged to the halfway for restorative physical therapy and Occupational Therapy. Activity will be as tolerated and she will remain on a 2 g sodium diet. Follow-up labs will be obtained on , January 31; BMP, CBC, INR, and digoxin level. - Patient Instructions Diet: Low Sodium Activity: As Tolerated Other/Special Instructions: Please schedule outpatient appointment with cardiology for review of congestive heart failure. Please obtain laboratory tests on January 31; BMP, CBC, INR, and digoxin level. - Discharge Plan *PRESCRIPTION DRUG MONITORING PROGRAM REVIEWED*: Not Applicable *COPY OF PRESCRIPTION DRUG MONITORING REPORT IN PATIENT SHIV: Not Applicable Prescriptions/Med Rec: Bumetanide [Bumex] 4 mg PO DAILY #60 tab Warfarin [Coumadin] 1 mg PO DAILY #30 tab Digoxin 125 mcg PO DAILY #30 tablet Metoprolol Succinate [Toprol XL] 12.5 mg PO BID #30 tab.er Home Medications: Home Meds levETIRAcetam [Levetiracetam] 500 mg PO DAILY 01/15/16 [History] levETIRAcetam [Levetiracetam] 1,000 mg PO QPM 05/06/17 [History] Rosuvastatin [Crestor] 10 mg PO DAILY 01/15/21 [History] Memantine 5 Mg 5 mg PO BID 01/16/21 [History] Bumetanide [Bumex] 4 mg PO DAILY #60 tab 01/27/21 [Rx] Digoxin 125 mcg PO DAILY #30 tablet 01/27/21 [Rx] Metoprolol Succinate [Toprol XL] 12.5 mg PO BID #30 tab.er 01/27/21 [Rx] Warfarin [Coumadin] 1 mg PO DAILY #30 tab 01/27/21 [Rx] Oxygen Flow Rate (L/min): 2 Referrals: Vanda Garcia MD [Primary Care Provider] - - Discharge Summary/Plan Comment DC Time >30 min.: No - Patient Data Vitals - Most Recent: Last Vital Signs Temp 97.6 F 01/27/21 08:00 Pulse 89 01/27/21 12:00 Resp 23 H 01/27/21 12:00 BP 102/64 01/27/21 12:00 Pulse Ox 94 L 01/27/21 12:00 Weight - Most Recent: 134 lb 14.766 oz I&O - Last 24 hours: Intake & Output 01/26/21 01/27/21 01/27/21 22:59 06:59 14:59 Intake Total 360 120 Output Total 600 150 400 Balance -240 -30 -400 Lab Results - Last 24 hrs: Laboratory Results - last 24 hr 01/27/21 01/27/21 Range/Units 04:30 04:30 PT 20.9 H (9.5-12.0) sec INR 1.94 H (0.80-1.20) Sodium 142 (140-148) mmol/L Potassium 3.7 (3.6-5.2) mmol/L Chloride 102 (100-108) mmol/L Carbon Dioxide 36 H (21-32) mmol/L Anion Gap 7.7 (5.0-14.0) mmol/L BUN 24 H (7-18) mg/dL Creatinine 1.1 H (0.6-1.0) mg/dL Est Cr Clr Drug Dosing 32.35 mL/min Estimated GFR (MDRD) 48 L (>60) Glucose 89 (74-106) mg/dL Calcium 8.6 (8.5-10.1) mg/dL Digoxin 0.88 L (0.90-2.00) ng/mL Med Orders - Current: Current Medications Acetaminophen (Acetaminophen 325 Mg Tab) 650 mg PO Q4H PRN PRN Reason: Pain (Mild 1-3)/fever Last Admin: 01/27/21 04:33 Dose: 650 mg Documented by: Albuterol (Albuterol 0.083% 2.5 Mg/3 Ml Neb Soln) 2.5 mg NEB Q4H PRN PRN Reason: Shortness Of Breath/wheezing Last Admin: 01/27/21 09:00 Dose: 2.5 mg Documented by: Bumetanide (Bumetanide 1 Mg Tab) 4 mg PO DAILY [facility] Last Admin: 01/27/21 09:10 Dose: 4 mg Documented by: Digoxin (Digoxin 125 Mcg Tab) 125 mcg PO DAILY@1300 [facility] Last Admin: 01/26/21 13:27 Dose: 125 mcg Documented by: Levetiracetam (Levetiracetam 250 Mg Tab) 1,000 mg PO QPM [facility] Last Admin: 01/26/21 17:54 Dose: 1,000 mg Documented by: Levetiracetam (Levetiracetam 250 Mg Tab) 500 mg PO DAILY [facility] Last Admin: 01/27/21 09:11 Dose: 500 mg Documented by: Magnesium Hydroxide (Magnesium Hydroxide 400 Mg/5 Ml Susp 30 Ml Cup) 30 ml PO Q12H PRN PRN Reason: Constipation Last Admin: 01/20/21 13:54 Dose: 30 ml Documented by: Melatonin (Melatonin 3 Mg Tab) 9 mg PO BEDTIME PRN PRN Reason: Sleep Last Admin: 01/25/21 22:00 Dose: 9 mg Documented by: Memantine (Memantine 10 Mg Tab) 5 mg PO BID [facility] Last Admin: 01/27/21 09:10 Dose: 5 mg Documented by: Metoprolol Succinate (Metoprolol Succinate 25 Mg Tab.Er) 12.5 mg PO BID [facility] Last Admin: 01/27/21 09:09 Dose: 12.5 mg Documented by: Ondansetron HCl (Ondansetron 4 Mg Tab.Dis) 4 mg PO Q6H PRN PRN Reason: Nausea able to take PO Ondansetron HCl (Ondansetron 4 Mg/2 Ml Sdv) 4 mg IV Q6H PRN PRN Reason: Nausea/Vomiting Rosuvastatin Calcium (Rosuvastatin 10 Mg Tab) 10 mg PO DAILY [facility] Last Admin: 01/27/21 09:09 Dose: 10 mg Documented by: Senna/Docusate Sodium (Docusate Sodium/Sennosides 50-8.6 Mg Tab) 1 tab PO BID PRN PRN Reason: Constipation Last Admin: 01/26/21 10:27 Dose: 1 tab Documented by: Sodium Chloride (Sodium Chloride 0.9% 10 Ml Syringe) 10 ml FLUSH ASDIRECTED PRN PRN Reason: Keep Vein Open Discontinued Medications Acetazolamide (Acetazolamide 250 Mg Tab) 250 mg PO BID [facility] Stop: 01/26/21 21:01 Last Admin: 01/26/21 21:22 Dose: 250 mg Documented by: Bumetanide (Bumetanide 1 Mg/4 Ml Mdv) 2 mg IVPUSH ONETIME ONE Stop: 01/16/21 22:01 Last Admin: 01/16/21 22:20 Dose: 2 mg Documented by: Bumetanide (Bumetanide 2.5 Mg/10 Ml Mdv) 2 mg IVPUSH Q12H [facility] Last Admin: 01/21/21 09:47 Dose: 2 mg Documented by: Bumetanide (Bumetanide 1 Mg/4 Ml Mdv) 1 mg IVPUSH ONETIME ONE Stop: 01/21/21 11:46 Last Admin: 01/21/21 11:51 Dose: 1 mg Documented by: Bumetanide (Bumetanide 2.5 Mg/10 Ml Mdv) 3 mg IVPUSH BID [facility] Last Admin: 01/22/21 08:18 Dose: 3 mg Documented by: Bumetanide (Bumetanide 2.5 Mg/10 Ml Mdv) 2 mg IVPUSH ONETIME ONE Stop: 01/24/21 00:23 Last Admin: 01/24/21 01:00 Dose: 2 mg Documented by: Digoxin (Digoxin 500 Mcg/2 Ml Amp) 125 mcg IVPUSH ONETIME ONE Stop: 01/15/21 19:32 Last Admin: 01/15/21 19:49 Dose: 125 mcg Documented by: Digoxin (Digoxin 500 Mcg/2 Ml Amp) 125 mcg IVPUSH ONETIME ONE Stop: 01/16/21 11:01 Last Admin: 01/16/21 11:38 Dose: 125 mcg Documented by: Digoxin (Digoxin 500 Mcg/2 Ml Amp) 250 mcg IVPUSH ONETIME ONE Stop: 01/23/21 17:55 Last Admin: 01/23/21 18:05 Dose: 250 mcg Documented by: Digoxin (Digoxin 500 Mcg/2 Ml Amp) 125 mcg IVPUSH ONETIME ONE Stop: 01/24/21 00:21 Last Admin: 01/24/21 01:00 Dose: 125 mcg Documented by: Furosemide (Furosemide 40 Mg/4 Ml Vial) 40 mg IVPUSH ONETIME ONE Stop: 01/15/21 18:17 Last Admin: 01/15/21 19:42 Dose: 40 mg Documented by: Furosemide (Furosemide 40 Mg/4 Ml Vial) 40 mg IVPUSH ONETIME ONE Stop: 01/16/21 15:46 Last Admin: 01/16/21 16:37 Dose: 40 mg Documented by: Phenylephrine HCl 40 mg/ (Dextrose/Water) 254 mls @ 15.24 mls/hr IV TITRATE [facility]; Protocol Last Titration: 01/24/21 04:20 Dose: 0 mcg/min, 0 mls/hr Documented by: Magnesium Sulfate 2 gm/ Premix 50 mls @ 25 mls/hr IV ONETIME ONE Stop: 01/21/21 13:29 Last Admin: 01/21/21 11:51 Dose: 25 mls/hr Documented by: Metoprolol Succinate (Metoprolol Succinate 50 Mg Tab.Er) 50 mg PO BID [facility] Last Admin: 01/22/21 12:47 Dose: 50 mg Documented by: Metoprolol Succinate (Metoprolol Succinate 25 Mg Tab.Er) 25 mg PO BID [facility] Last Admin: 01/23/21 10:17 Dose: 12.5 mg Documented by: Phytonadione (Phytonadione 5 Mg Tab) 5 mg PO ONETIME ONE Stop: 01/15/21 18:18 Last Admin: 01/15/21 19:48 Dose: 5 mg Documented by: Phytonadione (Phytonadione 5 Mg Tab) 2.5 mg PO ONETIME ONE Stop: 01/20/21 08:31 Last Admin: 01/20/21 08:43 Dose: 2.5 mg Documented by: Potassium Chloride (Potassium Chloride 20 Meq Tab.Er) 40 meq PO BID [facility] Last Admin: 01/19/21 08:44 Dose: 40 meq Documented by: Spironolactone (Spironolactone 25 Mg Tab) 25 mg PO DAILY [facility] Last Admin: 01/23/21 08:34 Dose: 25 mg Documented by: Warfarin Sodium (Warfarin 2.5 Mg Tab) 2.5 mg PO MoWeFr@1300 [facility] Warfarin Sodium (Warfarin 2.5 Mg Tab) 1.25 mg PO SuTuThSa@1300 [facility] Last Admin: 01/15/21 18:10 Dose: 1.25 mg Documented by: Warfarin Sodium (Warfarin 5 Mg Tab) 5 mg PO ONETIME ONE Stop: 01/18/21 13:01 Last Admin: 01/18/21 12:22 Dose: 5 mg Documented by: Warfarin Sodium (Warfarin 5 Mg Tab) 5 mg PO ONETIME ONE Stop: 01/19/21 13:01 Last Admin: 01/19/21 14:37 Dose: 5 mg Documented by: Warfarin Sodium (Warfarin 2.5 Mg Tab) 2.5 mg PO ONETIME ONE Stop: 01/21/21 13:01 Last Admin: 01/21/21 12:44 Dose: 2.5 mg Documented by: Warfarin Sodium (Warfarin 1 Mg Tab) 1 mg PO ONETIME ONE Stop: 01/23/21 13:01 Last Admin: 01/23/21 12:08 Dose: 1 mg Documented by: Warfarin Sodium (Warfarin 1 Mg Tab) 1 mg PO ONETIME ONE Stop: 01/26/21 10:01 Last Admin: 01/26/21 10:31 Dose: 1 mg Documented by: Warfarin Sodium (Warfarin 1 Mg Tab) 1 mg PO ONETIME ONE Stop: 01/27/21 13:01 - Exam General: Reports: Alert, Cooperative, No Acute Distress Lungs: Reports: Clear to Auscultation, Normal Respiratory Effort. Denies: Rales, Rhonchi, Wheezing Cardiovascular: Reports: Regular Rate, Irregular Rhythm, Murmurs GI/Abdominal Exam: Soft, Non-Tender, No Organomegaly, No Distention Extremities: Non-Tender, Pedal Edema
[2021-01-27] MEDS: Digoxin 125 MCG Tab PO SCH (13:23)
[2021-01-27] MEDS: Melatonin 3 MG Tab PO PRN (22:30)
[2021-01-28 07:52] VITALS: BP 105/48; PULSE 80
[2021-01-28] MEDS: levETIRAcetam 250 MG Tab PO SCH (08:20)
[2021-01-28] MEDS: Bumetanide 1 MG Tab PO SCH (08:20)
[2021-01-28] MEDS: Memantine 10 MG Tab PO SCH (08:20)
[2021-01-28] MEDS: Rosuvastatin 10 MG Tab PO SCH (08:20)
[2021-01-28] MEDS: Metoprolol Succinate 25 MG Tab.ER PO SCH (08:21)
== END 2021-01-28 10:20 | DRG 291 ==
LOC: JP.MS 15:50 → JP.ICU 01-16 10:28
PROVIDERS: ADMIT Internal Medicine; ATTEND Hospitalist
DX: I13.0 Hypertensive heart and chronic kidney disease with heart failure and stage 1 through stage 4 chronic kidney disease, or unspecified chronic kidney disease (principal); I50.41 Acute combined systolic (congestive) and diastolic (congestive) heart failure; J96.01 Acute respiratory failure with hypoxia; I24.8 Other forms of acute ischemic heart disease; I48.91 Unspecified atrial fibrillation; N18.31 Chronic kidney disease, stage 3a; I27.20 Pulmonary hypertension, unspecified; I69.320 Aphasia following cerebral infarction; I95.9 Hypotension, unspecified; I07.1 Rheumatic tricuspid insufficiency; H54.7 Unspecified visual loss; E78.00 Pure hypercholesterolemia, unspecified; M19.90 Unspecified osteoarthritis, unspecified site; E87.6 Hypokalemia; Z79.01 Long term (current) use of anticoagulants; Z79.899 Other long term (current) drug therapy; Z98.890 Other specified postprocedural states
CPT/HCPCS: 36415; 51702; 71045; 80048; 80053; 80162; 81001; 83735; 84484; 85025; 85027; 85610; 93306; 94640; 97110-GP; 97162-GP; 97165-GO; 97530-GP; 97535-GO; 97760-GO; A9270-GY; C1751; J1160; J1940; J2370; J3475; J3490; J7060